=== PATIENT | female | born 1945 | race Caucasian/White ===

== ENCOUNTER → 2020-07-30 10:10 | Outpatient (BNVA) | payer OTHER, MEDICARE, SELFPAY | PROVIDERS: PCP Internal Medicine; Referring Provider Internal Medicine; Visit Provider Student in an Organized Health Care Education/Training Program | DX: Z13.89 Encounter for screening for other disorder (principal) ==

== ENCOUNTER 2020-10-04 09:53 | Outpatient (REF) | payer OTHER, MEDICARE, SELFPAY ==
[2020-10-04 11:27] LABS: Estimated Average Glucose 126 mg/dL
[2020-10-04 11:42] LABS: Alanine Aminotransferase 16 U/L (0-31); Anion Gap 15 (12-20); Aspartate Amino Transferase 17 U/L (5-31); Blood Urea Nitrogen 14 mg/dL (9-16); Calcium 9.8 mg/dL (8.4-10.2); Carbon Dioxide 28 mmol/L (22-29); Chloride 100 mmol/L (96-108); Cholesterol 180 mg/dL; Estimated Glomerular Filt Rate > 60; Glucose Fasting 157 mg/dL (60-99); HDL Cholesterol 51 mg/dL; LDL Cholesterol Calculated 94 mg/dl; Potassium 4.6 mmol/l (3.3-5.1); Sodium 138 mmol/L (135-145); Triglycerides 178 mg/dL
[2020-10-04 11:52] LABS: Free T4 (Free Thyroxine) 1.34 ng/dL (0.71-1.85); Thyroid Stimulating Hormone 0.86 uIU/mL (0.32-4.0)
[2020-10-04 12:02] LABS: Creatinine Urine 236.03 mg/dL; Microalbum/Creatinine Ratio Ur 14.8 ug/mg cr
== END 2020-10-04 09:54 | disposition home or self-care (01) ==
LOC: HO.HMGCLDS 09:53
PROVIDERS: PCP Internal Medicine; Visit Provider Internal Medicine
DX: I10 Essential (primary) hypertension (principal); E11.9 Type 2 diabetes mellitus without complications; E78.5 Hyperlipidemia, unspecified; E03.9 Hypothyroidism, unspecified
CPT/HCPCS: 36415; 80048; 80061; 82043; 83036; 84439; 84443; 84450; 84460

== ENCOUNTER → 2021-03-09 11:33 | Outpatient (BNVA) | payer OTHER, MEDICARE, SELFPAY | PROVIDERS: PCP Internal Medicine; Visit Provider Advanced Practice Midwife ==

== ENCOUNTER 2021-03-14 08:39 | Outpatient (REF) | payer OTHER, MEDICARE, SELFPAY ==
[2021-03-14 11:41] LABS: Estimated Average Glucose 117 mg/dL; Hemoglobin A1c % 5.7 %
[2021-03-14 12:05] LABS: Alanine Aminotransferase 15 U/L (0-31); Anion Gap 12 (12-20); Aspartate Amino Transferase 18 U/L (5-31); Blood Urea Nitrogen 14 mg/dL (9-16); Calcium 9.4 mg/dL (8.4-10.2); Carbon Dioxide 28 mmol/L (22-29); Chloride 102 mmol/L (96-108); Cholesterol 166 mg/dL; Estimated Glomerular Filt Rate > 60; Glucose Fasting 111 mg/dL (60-99); HDL Cholesterol 54 mg/dL; LDL Cholesterol Calculated 85 mg/dl; Potassium 4.1 mmol/L (3.3-5.1); Sodium 138 mmol/L (135-145); Triglycerides 136 mg/dL
[2021-03-14 12:12] LABS: Thyroid Stimulating Hormone 0.85 uIU/mL (0.32-4.0); Vitamin D 25-OH Total 47.9 ng/mL (>30)
== END 2021-03-14 08:40 | disposition home or self-care (01) ==
LOC: HO.HMGCLDS 08:39
PROVIDERS: PCP Internal Medicine; Visit Provider Internal Medicine
DX: E03.9 Hypothyroidism, unspecified (principal); E11.9 Type 2 diabetes mellitus without complications; F33.0 Major depressive disorder, recurrent, mild; I10 Essential (primary) hypertension; I25.10 Atherosclerotic heart disease of native coronary artery without angina pectoris; Z78.0 Asymptomatic menopausal state
CPT/HCPCS: 36415; 80048; 80061; 82306; 83036; 84439; 84443; 84450; 84460

== ENCOUNTER → 2021-05-05 13:26 | Outpatient (BNVA) | payer OTHER, SELFPAY | PROVIDERS: PCP Internal Medicine; Visit Provider Advanced Practice Midwife ==

== ENCOUNTER 2021-05-20 09:31 | Outpatient (REF) | payer OTHER, SELFPAY ==
--- NOTE | ~2021-05-20 | MM_ITS ---
EXAMINATION: MM SCREENING DIGITAL BREAST TOMOSYNTHESIS, BILATERAL CLINICAL INFORMATION: Screening. Asymptomatic. The lifetime risk of breast cancer based on the Tyrer-Cuzick Model is 2%. COMPARISON: Mammography: 03/25/2020, 10/28/2018, 09/24/2017, 07/25/2016 TECHNIQUE: Digital breast tomosynthesis is performed in both the craniocaudal and mediolateral oblique views along with computer-aided detection (CAD). Synthesized 2D images are generated from the tomosynthesis. Additional left CC view is provided. FINDINGS: There are scattered areas of fibroglandular density (ACR BI-RADS breast composition Category b). The left breast is unremarkable. There is no interval mass or architectural abnormality. Neither breast shows abnormal calcifications. The bilateral axilla and skin contours are unremarkable. Right MLO tomography has small oval asymmetric density mid central 3:[address] correlate, likely shifting fibroglandular tissue and/or summation artifact. Patient will be recalled for additional imaging. MM/MM tomosynthesis screening BI IMPRESSION: 1. Right: Small asymmetric density mid breast on MLO view, possibly shifting fibroglandular tissue and/or summation artifact. 2. Left: No mammographic evidence of malignancy. ASSESSMENT: BI-RADS 0: Incomplete - Need Additional Imaging Evaluation RECOMMENDATION: 1. Additional views of the right breast (3-D spot MLO, 3-D ML). 2. Targeted ultrasound if warranted after review of the additional views. 3. Radiology department staff will contact the patient for additional imaging. This patient's information was entered into a reminder system with a target due date for their next mammogram.
== END 2021-05-20 09:32 | disposition home or self-care (01) ==
LOC: HO.MAMMO 09:31
PROVIDERS: PCP Internal Medicine; Visit Provider Internal Medicine
DX: Z12.31 Encounter for screening mammogram for malignant neoplasm of breast (principal)
CPT/HCPCS: 77063; 77067

== ENCOUNTER → 2021-06-06 10:32 | Outpatient (BNVA) | payer OTHER, SELFPAY | PROVIDERS: Visit Provider Nurse Practitioner Family | DX: M54.5 Low back pain (principal); J44.9 Chronic obstructive pulmonary disease, unspecified; G89.29 Other chronic pain | CPT/HCPCS: 99212 ==

== ENCOUNTER 2021-06-07 13:51 | Outpatient (REF) | payer OTHER, SELFPAY ==
--- NOTE | ~2021-06-07 | US_ITS ---
EXAMINATION: US DIAGNOSTIC ULTRASOUND BREAST, RIGHT CLINICAL INFORMATION: Right breast density. COMPARISON: Mammography of same day and dating back to March 01, 2011. TECHNIQUE: Ultrasound of the breast is performed with real-time oswald scale imaging and color Doppler. FINDINGS: Targeted ultrasound evaluation did not demonstrate any abnormal cystic or solid mass. No region of abnormal distal sound shadowing appreciated. Recommend 6 month follow-up right breast mammography. Results are discussed with the patient at time of visit. US/US breast RT limited IMPRESSION: Persistence of right breast density as described with no ultrasound correlate and no suspicious features. Recommend 6 month follow-up right breast mammography. ASSESSMENT: BI-RADS 3: Probably Benign RECOMMENDATION: Diagnostic mammography in 6 months.
--- NOTE | ~2021-06-07 | MM_ITS ---
EXAMINATION: MM DIAGNOSTIC DIGITAL BREAST TOMOSYNTHESIS, RIGHT US TARGETED BREAST, RIGHT CLINICAL INFORMATION: Right breast density superior medial aspect. COMPARISON: Mammography: 05/20/2021 and studies dating back to 03/01/2011. TECHNIQUE: Digital breast tomosynthesis is performed. 2D images are generated from the tomosynthesis. The following views are obtained: 90-degree mediolateral and spot compression mediolateral oblique views. Targeted right breast ultrasound. FINDINGS: There are scattered areas of fibroglandular density (ACR BI-RADS breast composition Category b). Additional views show some persistence of an approximately 5 x 3 mm density but which may be related to turn of vessel or small intramammary lymph node adjacent to a vessel. ULTRASOUND: Targeted ultrasound evaluation did not demonstrate any abnormal cystic or solid mass. No region of abnormal distal sound shadowing appreciated. Recommend 6 month follow up right breast mammography. Results are discussed with the patient at time of visit. MM/MM tomosynthesis added views R IMPRESSION: Persistence of right breast density as described with no ultrasound correlate and no suspicious features. Recommend 6 month follow up right breast mammography. ASSESSMENT: BI-RADS 3: Probably Benign. RECOMMENDATION: Diagnostic mammography in 6 months. This patient's information was entered into a reminder system with a target due date for their next mammogram.
== END 2021-06-07 13:52 | disposition home or self-care (01) ==
LOC: HO.MAMMO 13:51
PROVIDERS: Visit Provider Internal Medicine
DX: N64.89 Other specified disorders of breast (principal)
CPT/HCPCS: 76642; 77061; 77065

== ENCOUNTER → 2021-07-07 14:06 | Outpatient (BNVA) | payer OTHER, SELFPAY | PROVIDERS: PCP Internal Medicine; Visit Provider Obstetrics & Gynecology ==

== ENCOUNTER 2021-08-15 09:34 | Outpatient (REF) | payer OTHER, SELFPAY ==
[2021-08-15 12:07] LABS: Alanine Aminotransferase 18 U/L (0-31); Anion Gap 16 (12-20); Aspartate Amino Transferase 16 U/L (5-31); Blood Urea Nitrogen 13 mg/dL (9-16); Carbon Dioxide 26 mmol/L (22-29); Chloride 104 mmol/L (96-108); Cholesterol 186 mg/dL; Estimated Glomerular Filt Rate > 60; Glucose Fasting 134 mg/dL (60-99); HDL Cholesterol 50 mg/dL; LDL Cholesterol Calculated 107 mg/dl; Potassium 5.3 mmol/L (3.3-5.1); Sodium 141 mmol/L (135-145); Triglycerides 148 mg/dL
[2021-08-15 12:32] LABS: Free T4 (Free Thyroxine) 1.29 ng/dL (0.71-1.85); Thyroid Stimulating Hormone 0.51 uIU/mL (0.32-4.0); Vitamin D 25-OH Total 50.9 ng/mL (>30)
[2021-08-15 12:33] LABS: Creatinine Urine 108.49 mg/dL
[2021-08-15 12:52] LABS: Estimated Average Glucose 128 mg/dL; Hemoglobin A1c % 6.1 %
== END 2021-08-15 09:35 | disposition home or self-care (01) ==
LOC: HO.HMGCLDS 09:34
PROVIDERS: PCP Internal Medicine; Visit Provider Internal Medicine
DX: E03.9 Hypothyroidism, unspecified (principal); E11.9 Type 2 diabetes mellitus without complications; I10 Essential (primary) hypertension; I25.10 Atherosclerotic heart disease of native coronary artery without angina pectoris; Z78.0 Asymptomatic menopausal state
CPT/HCPCS: 36415; 80048; 80061; 82043; 82306; 83036; 84439; 84443; 84450; 84460

== ENCOUNTER 2021-12-07 14:55 | Outpatient (REF) | payer OTHER, SELFPAY ==
--- NOTE | ~2021-12-07 | MM_ITS ---
EXAMINATION: MM DIAGNOSTIC DIGITAL BREAST TOMOSYNTHESIS, RIGHT CLINICAL INFORMATION: Six-month follow up right breast density seen on mediolateral oblique projection only. The lifetime risk of breast cancer based on the Tyrer-Cuzick Model is 1.4%. COMPARISON: Mammography: June 07, 2021 and studies dating back to April 24, 2014 TECHNIQUE: Digital breast tomosynthesis is performed in both the craniocaudal and mediolateral oblique views along with computer-aided detection (CAD). Synthesized 2D images are generated from the tomosynthesis. FINDINGS: There are scattered areas of fibroglandular density (ACR BI-RADS breast composition Category b). There are no significant masses, abnormal calcifications, or other abnormalities. The previously noted density is not identified on today's study. Results are provided to the patient at time of visit by the technologist. MM/MM tomosynthesis diagnostic RT IMPRESSION: No mammographic evidence of malignancy. ASSESSMENT: BI-RADS 1: Negative RECOMMENDATION: Routine annual mammography screening, due in 6 months. This patient's information was entered into a reminder system with a target due date for their next mammogram.
== END 2021-12-07 14:56 | disposition home or self-care (01) ==
LOC: HO.MAMMO 14:55
PROVIDERS: PCP Internal Medicine; Visit Provider Internal Medicine
DX: R92.2 Inconclusive mammogram (principal)
CPT/HCPCS: 77061; 77065

== ENCOUNTER 2021-12-12 08:37 | Outpatient (REF) | payer OTHER, SELFPAY ==
[2021-12-12 11:59] LABS: Estimated Average Glucose 120 mg/dL; Hemoglobin A1c % 5.8 %
[2021-12-12 12:03] LABS: Alanine Aminotransferase 16 U/L (0-31); Anion Gap 13 (12-20); Aspartate Amino Transferase 16 U/L (5-31); Blood Urea Nitrogen 15 mg/dL (9-16); Calcium 10.3 mg/dL (8.4-10.2); Carbon Dioxide 29 mmol/L (22-29); Chloride 101 mmol/L (96-108); Cholesterol 163 mg/dL; Estimated Glomerular Filt Rate > 60; Glucose Fasting 131 mg/dL (60-99); HDL Cholesterol 48 mg/dL; LDL Cholesterol Calculated 85 mg/dl; Potassium 3.9 mmol/L (3.3-5.1); Sodium 139 mmol/L (135-145); Triglycerides 154 mg/dL
[2021-12-12 12:26] LABS: Free T4 (Free Thyroxine) 1.34 ng/dL (0.71-1.85); Thyroid Stimulating Hormone 0.31 uIU/mL (0.32-4.0); Vitamin D 25-OH Total 64.7 ng/mL (>30)
== END 2021-12-12 08:38 | disposition home or self-care (01) ==
LOC: HO.HMGCLDS 08:37
PROVIDERS: Visit Provider Internal Medicine
DX: I25.2 Old myocardial infarction (principal); I25.10 Atherosclerotic heart disease of native coronary artery without angina pectoris; I10 Essential (primary) hypertension; E11.9 Type 2 diabetes mellitus without complications; E03.9 Hypothyroidism, unspecified
CPT/HCPCS: 36415; 80048; 80061; 82306; 83036; 84439; 84443; 84450; 84460

== ENCOUNTER → 2021-12-26 13:56 | Outpatient (BNVA) | payer OTHER, MEDICARE, SELFPAY | PROVIDERS: PCP Internal Medicine; Referring Provider Internal Medicine; Visit Provider Internal Medicine | DX: I25.10 Atherosclerotic heart disease of native coronary artery without angina pectoris (principal); I10 Essential (primary) hypertension; E78.5 Hyperlipidemia, unspecified | CPT/HCPCS: 93005; 99202 ==

== ENCOUNTER 2022-01-09 10:16 | Outpatient (REF) | payer OTHER, SELFPAY ==
[2022-01-09 10:57] LABS: COVID-19 Test Positive (Negative)
== END 2022-01-09 10:17 | disposition home or self-care (01) ==
LOC: HO.LAB 10:16
PROVIDERS: PCP Internal Medicine; Visit Provider Internal Medicine
DX: Z20.822 Contact with and (suspected) exposure to COVID-19 (principal)
CPT/HCPCS: 87635; C9803

== ENCOUNTER → 2022-05-11 13:14 | Outpatient (BNVA) | payer OTHER, SELFPAY | PROVIDERS: PCP Internal Medicine; Visit Provider Nurse Practitioner Family | DX: G89.29 Other chronic pain (principal); M54.50 Low back pain, unspecified; M47.27 Other spondylosis with radiculopathy, lumbosacral region; J44.9 Chronic obstructive pulmonary disease, unspecified | CPT/HCPCS: 99212 ==

== ENCOUNTER 2022-06-06 10:54 | Outpatient (REF) | payer OTHER, SELFPAY ==
--- NOTE | ~2022-06-06 | MM_ITS ---
EXAMINATION: MM SCREENING DIGITAL BREAST TOMOSYNTHESIS, BILATERAL CLINICAL INFORMATION: Screening. Asymptomatic. The lifetime risk of breast cancer based on the Tyrer-Cuzick Model is under 2%. COMPARISON: Mammography: 12/07/2021, 06/07/2021, 05/20/2021, 03/25/2020 TECHNIQUE: Digital breast tomosynthesis is performed in both the craniocaudal and mediolateral oblique views along with computer-aided detection (CAD). Synthesized 2D images are generated from the tomosynthesis. FINDINGS: There are scattered areas of fibroglandular density (ACR BI-RADS breast composition Category b). There are no significant masses, abnormal calcifications, or other abnormalities. Parenchymal pattern is similar to prior studies. There is no developing density or architectural abnormality. The axilla and skin contours are unremarkable. No significant changes. MM/MM tomosynthesis screening BI IMPRESSION: No mammographic evidence of malignancy. ASSESSMENT: BI-RADS 1: Negative RECOMMENDATION: Routine annual mammography screening. This patient's information was entered into a reminder system with a target due date for their next mammogram.
== END 2022-06-06 10:55 | disposition home or self-care (01) ==
LOC: HO.MAMMO 10:54
PROVIDERS: PCP Internal Medicine; Visit Provider Internal Medicine
DX: Z12.31 Encounter for screening mammogram for malignant neoplasm of breast (principal)
CPT/HCPCS: 77063; 77067

== ENCOUNTER 2022-09-22 09:18 | Outpatient (REF) | payer OTHER, SELFPAY ==
[2022-09-22 11:40] LABS: Amphetamine Screen Urine Not Detected (Not Detect); Barbiturates, Urine Not Detected (Not Detect); Benzodiazepines Screen Urine Not Detected (Not Detect); Cannabinoid Screen Urine POSITIVE (Not Detect); Cocaine Screen Urine Not Detected (Not Detect); Fentanyl, urine Not Detected (Not Detect); Opiate Screen Urine Not Detected (Not Detect); Phencyclidine Screen Urine Not Detected (Not Detect)
[2022-09-22 11:56] LABS: Alanine Aminotransferase 16 U/L (0-31); Albumin Level 4.5 g/dL (3.5-5.0); Alkaline Phosphatase 93 U/L (39-117); Anion Gap 17 (12-20); Aspartate Amino Transferase 17 U/L (5-31); Bilirubin Total 0.5 mg/dL (0.0-1.0); Blood Urea Nitrogen 20 mg/dL (9-16); Calcium 10.5 mg/dL (8.4-10.2); Carbon Dioxide 27 mmol/L (22-29); Chloride 102 mmol/L (96-108); Cholesterol 193 mg/dL; Estimated Glomerular Filt Rate > 60; Glucose Fasting 150 mg/dL (60-99); Glucose Random 149 mg/dL (60-115); HDL Cholesterol 53 mg/dL; LDL Cholesterol Calculated 105 mg/dl; Potassium 4.8 mmol/L (3.3-5.1); Sodium 141 mmol/L (135-145); Total Protein 7.5 g/dL (6.5-8.0); Triglycerides 178 mg/dL
[2022-09-22 12:02] LABS: Estimated Average Glucose 123 mg/dL; Hemoglobin A1c % 5.9 %
[2022-09-22 12:07] LABS: Thyroid Stimulating Hormone 0.14 uIU/mL (0.32-4.0); Vitamin D 25-OH Total 47.1 ng/mL (>30)
[2022-10-02 09:29] LABS: Tramadol, Ur 5357
[2022-10-02 09:30] LABS: Desmethyltramadol, Ur >10000
== END 2022-09-22 09:19 | disposition home or self-care (01) ==
LOC: HO.HMGCLDS 09:18
PROVIDERS: Absent Provider Nurse Practitioner Family; PCP Internal Medicine; Visit Provider Internal Medicine
DX: E11.9 Type 2 diabetes mellitus without complications (principal); I10 Essential (primary) hypertension; I25.10 Atherosclerotic heart disease of native coronary artery without angina pectoris; I25.2 Old myocardial infarction; E03.9 Hypothyroidism, unspecified; Z79.899 Other long term (current) drug therapy
CPT/HCPCS: 36415; 80048; 80053; 80061; 80307; 80373; 82306; 83036; 84439; 84443

== ENCOUNTER 2022-10-10 11:39 | Outpatient (REF) | payer OTHER, SELFPAY ==
[2022-10-11 11:37] LABS: Calcium (PTHI) 10.4 mg/dL (8.6-10.4); PTHI 34 pg/mL (16-77)
[2022-10-11 15:58] LABS: Calcium, Ionized 5.4 mg/dL (4.8-5.6)
== END 2022-10-10 11:40 | disposition home or self-care (01) ==
LOC: HO.HMGCLDS 11:39
PROVIDERS: PCP Internal Medicine; Visit Provider Nurse Practitioner Family
DX: E83.52 Hypercalcemia (principal)
CPT/HCPCS: 36415; 82330; 83970

== ENCOUNTER → 2023-01-09 12:55 | Outpatient (BNVA) | payer OTHER, SELFPAY | PROVIDERS: PCP Internal Medicine; Visit Provider Nurse Practitioner Family | DX: M47.27 Other spondylosis with radiculopathy, lumbosacral region (principal) | CPT/HCPCS: 99212 ==

== ENCOUNTER 2023-01-17 08:41 | Outpatient (REF) | payer OTHER, SELFPAY ==
[2023-01-17 12:06] LABS: Alanine Aminotransferase 12 U/L (0-31); Aspartate Amino Transferase 15 U/L (5-31)
== END 2023-01-17 08:42 | disposition home or self-care (01) ==
LOC: HO.HMGCLDS 08:41
PROVIDERS: PCP Internal Medicine; Visit Provider Internal Medicine
DX: E03.9 Hypothyroidism, unspecified (principal); I10 Essential (primary) hypertension; I25.10 Atherosclerotic heart disease of native coronary artery without angina pectoris; I25.2 Old myocardial infarction; E11.9 Type 2 diabetes mellitus without complications
CPT/HCPCS: 36415; 84450; 84460

== ENCOUNTER 2023-03-02 08:41 | Outpatient (REF) | payer OTHER, SELFPAY ==
[2023-03-02 11:44] LABS: Estimated Average Glucose 117 mg/dL; Hemoglobin A1c % 5.7 %
[2023-03-02 11:56] LABS: Anion Gap 16 (12-20); Blood Urea Nitrogen 15 mg/dL (9-16); Calcium 9.9 mg/dL (8.4-10.2); Carbon Dioxide 23 mmol/L (22-29); Chloride 105 mmol/L (96-108); Cholesterol 172 mg/dL; Estimated Glomerular Filt Rate > 60; Glucose Fasting 135 mg/dL (60-99); HDL Cholesterol 50 mg/dL; LDL Cholesterol Calculated 95 mg/dl; Potassium 3.6 mmol/L (3.3-5.1); Sodium 140 mmol/L (135-145); Triglycerides 138 mg/dL
[2023-03-02 12:12] LABS: Free T4 (Free Thyroxine) 1.35 ng/dL (0.71-1.85); Thyroid Stimulating Hormone 0.07 uIU/mL (0.32-4.0)
== END 2023-03-02 08:42 | disposition home or self-care (01) ==
LOC: HO.HMGCLDS 08:41
PROVIDERS: PCP Internal Medicine; Visit Provider Internal Medicine
DX: Z00.01 Encounter for general adult medical examination with abnormal findings (principal); I25.10 Atherosclerotic heart disease of native coronary artery without angina pectoris; I10 Essential (primary) hypertension; E03.9 Hypothyroidism, unspecified; E11.9 Type 2 diabetes mellitus without complications; E78.5 Hyperlipidemia, unspecified
CPT/HCPCS: 36415; 80048; 80061; 82306; 83036; 84439; 84443

== ENCOUNTER 2023-06-07 11:08 | Outpatient (REF) | payer OTHER, SELFPAY | END 2023-06-07 11:09 | disposition home or self-care (01) | LOC: HO.MAMMO 11:08 | PROVIDERS: PCP Internal Medicine; Visit Provider Internal Medicine | DX: Z12.31 Encounter for screening mammogram for malignant neoplasm of breast (principal) | CPT/HCPCS: 77063; 77067 ==

== ENCOUNTER → 2023-06-07 11:15 | Outpatient (BNV) | payer OTHER, SELFPAY | PROVIDERS: PCP Internal Medicine; Visit Provider Radiology Diagnostic Radiology | DX: Z12.31 Encounter for screening mammogram for malignant neoplasm of breast (principal) | CPT/HCPCS: 77063; 77067 ==

== ENCOUNTER 2023-07-09 09:45 | Outpatient (AMB) | payer OTHER, SELFPAY ==
--- NOTE | 2023-07-09 09:55 | MHC.OFFVIS ---
Intake Vital Signs 07/09/23 09:56 Height 5 ft 5 in Weight 163 lb 2.273 oz BMI 27.1 BP 148/84 H Blood Pressure Location Lt brachial Position Sitting Pulse 57 Pulse Source Pulse Oximeter Temp 97.4 F Temp Source Skin Pulse Oximetry (%) 95 Oxygen Delivery Method Room Air Intake Visit Reasons: osteoarthritis Intake Note: Patient presents today for OA follow up. Clerical Adviser Required: No Accompanied by: Self / Same As Patient Allergies amoxicillin [Augmentin] Adverse Reaction (Unknown, Verified 07/09/23 09:56) N/V HPI HPI Comments History of Present Illness Details The patient returns today for monitoring her tramadol use for her lumbar osteoarthritis. She has the 50 mg tablets prescribed and takes 2 twice a day. She denies any dizziness or sedation during the daytime. She does take tincture of THC at nighttime for sleep. She says the THC helps her sleep but does not cause her significant daytime sedation. The pain in the back sometimes radiates to the right leg but not regularly anymore. FOR[facility]LY [facility], [facility] Medical History (Updated 02/22/23 @ 12:18 by Dany Leonard MD) Insomnia Hx of myocardial infarction Myocardial infarct Major depression in full remission Type 2 diabetes mellitus without complication, without long-term current use of insulin Essential hypertension Acquired hypothyroidism CAD (coronary artery disease) COPD (chronic obstructive pulmonary disease) Surgical History Hx of colonoscopy History of heart artery stent History of total hysterectomy Family History Father Parkinson disease Scoliosis Cancer Mother Colon cancer Maternal Grandmother No problems noted. Maternal Grandfather No problems noted. Paternal Grandmother Lung cancer Paternal Grandfather Alcoholism Diabetes mellitus Social History (Updated 07/09/23 @ 10:04 by LYDIA Caruso) Housing: House Alcohol intake: current Alcohol intake frequency: a few times a week Patient Tobacco Use Status: Current everyday Tobacco user Tobacco use type: Cigarette and Smokeless Tobacco Years Smoked: 14 e-Cigarette/Vaping Use: Currently Using Current occupational status: retired Cognitive needs: No Hearing needs: No Vision needs: Yes Review of Systems Const Details: Negative for appetite change, weight change, fever, chills, malaise and fatigue Eyes Details: Negative for vision change, dry eyes,headaches and dizziness Neuro Details: Negative for epilepsy, palsy, stroke, changes in speech, tingling and weakness Endo Details: Negative for polyuria and polydypsia Hunter/Lymph Details: Negative for excessive bruising or bleeding. Physical Exam Vital Signs: Last Vital Signs Temp 97.4 F 07/09/23 09:56 Pulse 57 07/09/23 09:56 BP 148/84 H 07/09/23 09:56 Pulse Ox 95 07/09/23 09:56 Oxygen Delivery Method Room Air 07/09/23 09:56 BMI result Body Mass Index 27.1 APPEARANCE: Patient in no acute distress EYES no redness, pupils equal and reactive to light, eyelids normal EXTREMITIES: No edema, no calf tenderness, normal peripheral pulses. JOINT EXAM:.?? Cervical Spine: She has some limitation in lateral rotation to about 30 degrees and lateral flexion to about 10 degrees. This motion is not painful. There is no tenderness. Thoracic Spine:?? No tenderness on palpation. Lumbar Spine: Alignment normal.? Some limitation of flexion with mild pain at 75 degrees. No tenderness. Hands: There is mild bony enlargement and tenderness at the base of the thumb bilaterally, more prominent on the right. Is also nontender bony enlargement at the thumb IP in the PIP joints bilaterally. These are not tender. There is no soft tissue swelling, redness or warmth. Wrists:? Normal pain-free range of motion without tenderness, swelling, increased warmth or erythema. Elbows: Normal pain-free range of motion without tenderness, swelling, increased warmth or erythema. Shoulders:? Full range of motion without pain. No tenderness, weakness, swelling, increased warmth or erythema. Hips:? Full range of motion without pain. Hip bursa: No tenderness. Knees:?? Normal pain-free range of motion with mild patellofemoral crepitus but no effusion, tenderness, swelling, increased warmth or erythema.? There is no effusion or crepitation Ankles: Normal pain-free range of motion without tenderness, swelling, increased warmth or erythema. Feet: Normal pain-free range of motion without tenderness, swelling, increased warmth or erythema. Cock-up deformity consistent with hammer toe in 2nd and 3rd toe bilaterally. No erythema, swelling or warmth noted. ? Assessment & Plan Assessment & Plan (1) Medication monitoring encounter: Comment: tramadol pain contract signed 05/11/2022 Code(s): Z51.81 - Encounter for therapeutic drug level monitoring (2) Lumbosacral spondylosis with radiculopathy: Code(s): M47.27 - Other spondylosis with radiculopathy, lumbosacral region Plan She believes her symptoms are improved with the use of the tramadol. I do not detect any untoward side effects. I did warn her that the tramadol could be sedating and might lead to some lightheadedness or dizziness as well. I suggested she try to take the 1 Tylenol with the 1 tramadol in the mornings to see if that would effects similar pain relief without run the risk of causing FLARE STITCHER side effects. I warned her that not much is known about THC-tramadol interactions but they are both sedating drugs. She seems to be tolerating the nighttime tramadol. The Mass Pat is reviewed and she seems to be complying with the prescription guidance. Her TSH is a bit low suggesting over treatment of her hypothyroidism. She was told to discuss that with her primary doctor. And Follow-up in 6 months is recommended. Coding Level of Care Code Est Pt Level 3 (61026) Diagnoses Medication monitoring encounter Z51.81 Lumbosacral spondylosis with radiculopathy M47.27
[2023-07-09 09:56] VITALS: BP 148/84; PULSE 57; TEMP 36.3; O2SAT 95; BMI 27.1
== END 2023-07-09 10:32 | disposition home or self-care (01) ==
LOC: HO.RHE 09:45
PROVIDERS: PCP Internal Medicine; Visit Provider Internal Medicine Rheumatology
DX: Z51.81 Encounter for therapeutic drug level monitoring (principal); M47.27 Other spondylosis with radiculopathy, lumbosacral region
CPT/HCPCS: 99213

== ENCOUNTER → 2023-07-09 09:45 | Outpatient (BNVA) | payer OTHER, SELFPAY | PROVIDERS: PCP Internal Medicine; Visit Provider Internal Medicine Rheumatology | DX: Z51.81 Encounter for therapeutic drug level monitoring (principal); F11.20 Opioid dependence, uncomplicated; M47.27 Other spondylosis with radiculopathy, lumbosacral region | CPT/HCPCS: 99212 ==

== ENCOUNTER 2023-07-11 07:32 | Outpatient (REF) | payer OTHER, SELFPAY ==
[2023-07-11 11:41] LABS: Estimated Average Glucose 120 mg/dL; Hemoglobin A1c % 5.8 % (<6.0)
[2023-07-11 12:39] LABS: Alanine Aminotransferase 16 U/L (0-31); Anion Gap 14 (12-20); Aspartate Amino Transferase 19 U/L (5-31); Blood Urea Nitrogen 15 mg/dL (9-16); Calcium 10.1 mg/dL (8.4-10.2); Carbon Dioxide 24 mmol/L (22-29); Chloride 104 mmol/L (96-108); Cholesterol 183 mg/dL (<200); Estimated Glomerular Filt Rate > 60; Glucose Fasting 133 mg/dL (60-99); HDL Cholesterol 57 mg/dL (>40); LDL Cholesterol Calculated 95 mg/dL (<100); Potassium 3.7 mmol/L (3.3-5.1); Sodium 138 mmol/L (135-145); Triglycerides 156 mg/dL (<150)
[2023-07-11 12:59] LABS: Thyroid Stimulating Hormone 0.14 uIU/mL (0.32-4.0)
== END 2023-07-11 07:33 | disposition home or self-care (01) ==
LOC: HO.HMGCLDS 07:32
PROVIDERS: PCP Internal Medicine; Visit Provider Internal Medicine
DX: E11.9 Type 2 diabetes mellitus without complications (principal); I10 Essential (primary) hypertension; E03.9 Hypothyroidism, unspecified; I25.10 Atherosclerotic heart disease of native coronary artery without angina pectoris; I25.2 Old myocardial infarction
CPT/HCPCS: 36415; 80048; 80061; 83036; 84443; 84450; 84460

== ENCOUNTER 2023-07-12 10:40 | Outpatient (AMB) | payer OTHER, SELFPAY ==
--- NOTE | 2023-07-12 11:09 | MHC.PC.OV ---
Vital Signs 07/12/23 11:10 Height 5 ft 5 in Weight 163 lb 8 oz BMI 27.2 BP 140/78 H Blood Pressure Location Rt brachial Position Sitting Pulse 73 Pulse Source Pulse Oximeter Pulse Oximetry (%) 95 Oxygen Delivery Method Room Air Intake Visit Reasons: follow up Intake Note: pt is here to follow up for her lab results pt would like to get the under 65 flu vaccine Allergies amoxicillin [Augmentin] Adverse Reaction (Unknown, Verified 02/28/24 11:10) N/V high dose influenza Adverse Reaction (Uncoded 01/01/24 10:09) Hives Medication List - Last Reconciled 07/12/23 by Loretta Sanchez MD albuterol sulfate 2.5 mg (3 mL) inhalation Q4-6H PRN albuterol sulfate 90 mcg/actuation (ProAir HFA) 0 mcg inhalation aspirin 81 mg PO DAILY atorvastatin 10 mg PO DAILY [id number] mg tabs PO cholecalciferol (vitamin D3) 25 mcg PO DAILY citalopram 40 mg PO DAILY docusate sodium 100 mg PO DAILY hydrochlorothiazide 25 mg PO DAILY levothyroxine 137 mcg PO DAILY lisinopril 20 mg PO DAILY multivitamin 1 tab PO DAILY omeprazole 20 mg PO DAILY tramadol 100 mg (2 x 50 mg) PO BID PRN Tobacco use date assessed: 01/18/23 Fall risk assessment: No Falls in past year Last assessed Fall Risk: 07/12/23 Dental Screening Dental Screen Date: 07/12/23 Did you have a dental visit in the last 12 months?: No Did you have a dental problem in the last 6 months where you did not have access to dental care?: No Was dental information given to patient?: Patient has dentist HPI follow up HPI Details 78 year old lady with diabetes mellitus currently controlled through diet and exercise, hypertension, acquired hypothyroidism, here today for follow-up. Has been taking her medications as directed, and compliant with diet. Latest labs showed hemoglobin A1c at 5.8%, with lipids within normal limits as well as her electrolytes and renal function. Still having it problems initiating and staying asleep, took eszopiclone in the past which gave her severe abdominal pain. COUNT INCLUDES THE [facility] Medical History Trochanteric bursitis, right hip Chronic insomnia Hx of myocardial infarction Myocardial infarct Major depression in full remission Type 2 diabetes mellitus without complication, without long-term current use of insulin Essential hypertension Acquired hypothyroidism CAD (coronary artery disease) COPD (chronic obstructive pulmonary disease) Surgical History Hx of colonoscopy History of heart artery stent History of total hysterectomy Family History Father Parkinson disease Scoliosis Cancer Mother Colon cancer Maternal Grandmother No problems noted. Maternal Grandfather No problems noted. Paternal Grandmother Lung cancer Paternal Grandfather Alcoholism Diabetes mellitus Social History Housing: House Alcohol intake: current Alcohol intake frequency: a few times a week Patient Tobacco Use Status: Former Tobacco user Tobacco use type: Smokeless Tobacco Years Smoked: 14 e-Cigarette/Vaping Use: Currently Using service: No Current occupational status: retired Cognitive needs: No Hearing needs: No Vision needs: Yes Questionnaire Thrive Questionnaire Date Thrive assessed: 01/18/23 NADIA-7 AMB Questionnaire NADIA-7 Date NADIA - 7 assessed: 01/18/23 Source: Developed by Drs. Otf Mandujano, Soraya Caba, Sim Villa and colleagues, with an educational kenan from [employer]. Review of Systems Const Denies fatigue, Denies fever(s), Denies frequent falls and Denies weakness Eyes Reports no additional complaints ENT Denies dizziness Card Denies chest pain, Denies lightheadedness, Denies palpitations and Denies dyspnea Resp Denies cough and Denies dyspnea GI Denies change in bowel habits Reports no additional complaints Musc Denies abnormal gait and Denies muscle weakness Neuro Denies abnormal gait, Denies dizziness, Denies frequent falls and Denies weakness Endo Denies fatigue and Denies palpitations Hunter/Lymph Reports no additional complaints Physical exam (Primary Care) Vital Signs: Last Vital Signs Pulse 73 07/12/23 11:10 BP 140/78 H 07/12/23 11:10 Pulse Ox 95 07/12/23 11:10 Oxygen Delivery Method Room Air 07/12/23 11:10 BMI result Body Mass Index 27.2 Tobacco/Smoking Status: Tobacco use Status Tobacco use date assessed 01/18/23 07/12/23 11:09 Patient Tobacco Use Status Current everyday Tobacco 07/12/23 11:09 Tobacco use type Cigarette,Smokeless Tobacco 07/12/23 11:09 e-Cigarette/Vaping Use Currently Using 07/12/23 11:09 Thrive Assessment: Date of Thrive Assessment Date Thrive assessed 01/18/23 07/12/23 11:09 Const Other: Alert oriented x3 no acute distress noted ambulatory with normal gait Orientation/consciousness: patient oriented x3 HENMT Head: Yes normocephalic Ears: external ears normal, TM's normal bilaterally and EAC's normal General nose exam: Normal external nose present and No nasal discharge present Face and sinus: Yes face symmetric Mouth: Normal oral and palatal mucosa present, oropharynx normal and moist mucous membranes Teeth and gingiva: dentures Eyes General: appearance normal, both eyes and all related structures Neck Neck: Yes full ROM, Yes no lymphadenopathy and Yes supple Chest Breast/axilla palpation: normal palpation of the breasts Resp Auscultation: clear to auscultation bilaterally Cardio Other: S1-S2 present regular rate and rhythm GI Other: Normal bowel sounds, soft, nontender, with no mass palpated General: Yes no CVA tenderness Back/Spine/Pelvis Back: no CVA tenderness Skin General skin exam: no rashes or lesions noted Neuro General: patient oriented x3, gait normal, tone normal, moves all extremities, Normal light touch and pain sensation and no focal motor deficits Extrem General: Yes full ROM and Yes no joint enlargement Psych Appearance: grossly normal and well kempt Mental Status: mental status grossly normal Speech and movement: Normal speech and movement present Affect: normal affect Attitude: cooperative Thought process: Normal thought process present Office Procedures Flu Questionnaire Does the patient have a severe egg allergy?: No Does the patient have severe life threatening allergies?: No Does the patient have a fever or illness today?: No Has the patient ever had any past reaction to a flu shot?: No Comment: pt got very sick from high dose Flu vaccine Immunizations flu vacc [id number] 6mos up(PF) 60 mcg(15 mcgx4)/0.5 mL IM syringe Performing Provider: Loretta Sanchez MD Performing Location: [facility] Administered by: Berna Lucia CMA on 07/12/23 11:55 Dose Route Admin Location Dispensed Lot Number Expiration Date NDC [employer] 0.5 mL IM Left Deltoid 0.5 mL [id number] 03/16/24 [id number] [employer] VIS Given Date VIS Provided VIS Publication Date 07/12/23 Single Vaccine 21 Eligibility Eligibility Date Funding Source Not VFC Eligible 07/12/23 Private Results Reviewed Results Reviewed: Name: Estrella De La Torre Age/Sex: 78/F : 1945 Unit#: [id number] Attend Dr: Loretta Sanchez MD Re07/11/23 Status: DEP [facility]: SPEC : [id number] YASH: 07/11/23 STATUS: COMP REQ : [id number] RECD: 07/11/[address]: Loretta Sanchez MD COMP: 07/11/239 ENTERED: 07/11/[address]: ORDERED: Met Prof Fast, AST, ALT, Lipid Panel, TSH Test Result Flag Reference Site Sodium 138 135-145 mmol/L Potassium 3.7 3.3-5.1 mmol/L CL 104 96-108 mmol/L CO2 24 22-29 mmol/L Gap 14 12-20 BUN 15 9-16 mg/dL Creat 0.79 0.5-1.4 mg/dL EGFR > 60 NOTE: For -Mex[place] individuals, multiply the result by 1.210. Chronic Kidney Disease: Estimated GFR < 60 mL/min/1.73m2 Severe Kidney Disease: Estimated GFR < 15 mL/min/1.73m2 FBS 133 H 60-99 mg/dL A fasting glucose of 126 mg/dl or greater on more than one occasion is considered diagnostic of diabetes. CA 10.1 8.4-10.2 mg/dL AST (GOT) 19 5-31 U/L ALT (GPT) 16 0-31 U/L Triglyceride 156 H <150 mg/dL Desirable Triglyceride: less than 150 mg/dL Borderline High Triglyceride 150-199 mg/dL High Triglyceride: 200-499 mg/dL Very High Triglyceride: greater than or equal to 5OO mg/dL Cholesterol 183 <200 mg/dL Desirable Cholesterol: less than 200 mg/dL Borderline High Cholesterol: 200-239 mg/dL High Cholesterol: greater than 239 mg/dL LDL Calculated 95 <100 mg/dL Desirable LDL: less than 100 mg/dL Near Optimal/Above Optimal LDL: 110-129 mg/dL Borderline High LDL: 130-159 mg/dL High LDL: 160-189 mg/dL Very High LDL: greater than or equal to 190 mg/dL HDL 57 >40 mg/dL Desirable HDL: greater than 40 mg/dL Note: This HDL assay may give artificially low results in patients with liver disease. TSH 3rd Gen. 0.14 L 0.32-4.0 uIU/mL TSH 3rd Generation ([facility]) Laboratory Tests 07/11/23 07:37 Estimat Average Glucose 120 Hemoglobin A1c % 5.8 Assessment and Plan Assessment & Plan (1) Type 2 diabetes mellitus without complication, without long-term current use of insulin: Code(s): E11.9 - Type 2 diabetes mellitus without complications Plan: Diabetes mellitus well controlled with through diet and exercise. With hemoglobin A1c at 5.8% . Reminded to get updated diabetes retinopathy screening (2) Essential hypertension: Code(s): I10 - Essential (primary) hypertension Plan: Blood pressure not at goal of less than 130/80. Will continue on lisinopril 20 mg daily and hydrochlorothiazide 25 mg daily in a.m. Reinforced importance of following a low sodium diet, getting regular exercise, and lowering stress levels. (3) Acquired hypothyroidism: Code(s): E03.9 - Hypothyroidism, unspecified Plan: Thyroid levels are within normal limits, continued on current dose of levothyroxine at 137 mcg daily in a.m. an hour before breakfast. (4) Chronic insomnia: Code(s): F51.04 - Psychophysiologic insomnia Plan: Unable to tolerate eszopiclone, will try on trazodone 50 mg per tablet to take 1 tablet at bedtime as needed for insomnia Orders: Orders Influenza [id number] Immunization 07/12/23 Z23 - Encounter for immunization Medications: New trazodone 50 mg PO BEDTIME PRN 30 tabs 0RF sleep Coding Level of Care Code Est Pt Level 4 (90400) Complex EM visit Add On G2211 Diagnoses Type 2 diabetes mellitus without complication, without long-term current use of insulin E11.9 Essential hypertension I10 Acquired hypothyroidism E03.9 Chronic insomnia F51.04
[2023-07-12 11:10] VITALS: BP 140/78; PULSE 73; O2SAT 95; BMI 27.2
== END 2023-07-12 12:52 | disposition home or self-care (01) ==
PROVIDERS: Visit Provider Internal Medicine
DX: E11.9 Type 2 diabetes mellitus without complications (principal); I10 Essential (primary) hypertension; E03.9 Hypothyroidism, unspecified; F51.04 Psychophysiologic insomnia
CPT/HCPCS: 99499

== ENCOUNTER 2023-08-03 14:31 | Outpatient (AMB) | payer OTHER, SELFPAY ==
--- NOTE | 2023-08-03 14:28 | A.OFFPC_ITS ---
Intake Visit Reasons: discuss insomnia med [facility] [phone] Intake Note: pt wants to discuss insomnia med Allergies amoxicillin [Augmentin] Adverse Reaction (Unknown, Verified 08/03/23 14:37) N/V high dose influenza Adverse Reaction (Uncoded 08/03/23 14:37) Hives Medication List - Last Reconciled 08/03/23 by Loretta Sanchez MD albuterol sulfate 2.5 mg (3 mL) inhalation Q4-6H PRN albuterol sulfate 90 mcg/actuation (ProAir HFA) 0 mcg inhalation aspirin 81 mg PO DAILY atorvastatin 10 mg PO DAILY [id number] mg tabs PO cholecalciferol (vitamin D3) 25 mcg PO DAILY citalopram 40 mg PO DAILY docusate sodium 100 mg PO DAILY hydrochlorothiazide 25 mg PO DAILY levothyroxine 137 mcg PO DAILY lisinopril 20 mg PO DAILY multivitamin 1 tab PO DAILY omeprazole 20 mg PO DAILY tramadol 100 mg (2 x 50 mg) PO BID PRN trazodone 50 mg PO BEDTIME PRN Tobacco use date assessed: 01/18/23 Fall risk assessment: No Falls in past year Last assessed Fall Risk: 08/03/23 Dental Screening Dental Screen Date: 08/03/23 Did you have a dental visit in the last 12 months?: Yes Did you have a dental problem in the last 6 months where you did not have access to dental care?: No Was dental information given to patient?: Patient has dentist HPI discuss insomnia med [facility] [phone] HPI Details Tele health visit made with 78-year-old lady, here today complaining of insomnia. She has tried taking [id number]-[id number] sleep aids which has not been effective. She was then prescribed trazodone 50 mg per tablet, which initially helped, but now needs to take at least 1 and half tablets or 75 mg at night to help her sleep through the night. Denies any adverse effects with taking 75 mg dose of trazodone. [facility] Medical History (Updated 08/05/23 @ 22:57 by Loretta Sanchez MD) Chronic insomnia Hx of myocardial infarction Myocardial infarct Major depression in full remission Type 2 diabetes mellitus without complication, without long-term current use of insulin Essential hypertension Acquired hypothyroidism CAD (coronary artery disease) COPD (chronic obstructive pulmonary disease) Surgical History Hx of colonoscopy History of heart artery stent History of total hysterectomy Family History Father Parkinson disease Scoliosis Cancer Mother Colon cancer Maternal Grandmother No problems noted. Maternal Grandfather No problems noted. Paternal Grandmother Lung cancer Paternal Grandfather Alcoholism Diabetes mellitus Social History Housing: House Alcohol intake: current Alcohol intake frequency: a few times a week Patient Tobacco Use Status: Current everyday Tobacco user Tobacco use type: Cigarette and Smokeless Tobacco Years Smoked: 14 e-Cigarette/Vaping Use: Currently Using Current occupational status: retired Cognitive needs: No Hearing needs: No Vision needs: Yes Questionnaire Thrive Questionnaire Date Thrive assessed: 01/18/23 NADIA-7 AMB Questionnaire NADIA-7 Date NADIA - 7 assessed: 01/18/23 Source: Developed by Drs. Otf Mandujano, Soraya Caba, Sim Villa and colleagues, with an educational kenan from [employer]. Review of Systems Const Denies fatigue, Denies fever(s), Denies frequent falls and Denies weakness ENT Denies dizziness Card Denies chest pain, Denies lightheadedness, Denies palpitations and Denies dyspnea Resp Denies cough and Denies dyspnea GI Denies change in bowel habits Musc Denies abnormal gait and Denies muscle weakness Neuro Denies abnormal gait, Denies dizziness, Denies frequent falls and Denies weakness Endo Denies fatigue and Denies palpitations Hunter/Lymph Reports no additional complaints Physical exam (Primary Care) Tobacco/Smoking Status: Tobacco use Status Tobacco use date assessed 01/18/23 08/03/23 14:31 Patient Tobacco Use Status Current everyday Tobacco 08/03/23 14:31 Tobacco use type Cigarette,Smokeless Tobacco 08/03/23 14:31 e-Cigarette/Vaping Use Currently Using 08/03/23 14:31 Thrive Assessment: Date of Thrive Assessment Date Thrive assessed 01/18/23 08/03/23 14:31 Telehealth Telehealth Location of provider rendering services: practice address Location of patient: address on file Patient Identification confirmed using: Name, : Yes Telehealth method: video Patient verbally consented to treatment: Yes Patient verbally consented to billing insurance company: Yes Patient informed of any privacy concerns related to visit: Yes Minutes spent on Phone/Video with Pt.: 15 Assessment and Plan Assessment & Plan (1) Chronic insomnia: Code(s): F51.04 - Psychophysiologic insomnia Plan: Prescription was sent for trazodone 50 mg per tablet to take 1 and half tablets or 75 mg at bedtime as needed for insomnia. Goes possible side effects of medication which may include drowsiness or dizziness upon waking up the next morning. Do not take with any alcohol. Take only as needed Medications: Changed From trazodone 50 mg PO BEDTIME PRN 30 tabs 0RF sleep To trazodone 75 mg (1.5 x 50 mg) PO BEDTIME 3 months PRN 135 tabs 0RF insomnia Coding Level of Care Code Tele Est Pt Level 3 (01890) Diagnoses Chronic insomnia F51.04
== END 2023-08-03 15:27 | disposition home or self-care (01) ==
LOC: HO.HMGC 14:31
PROVIDERS: PCP Internal Medicine; Visit Provider Internal Medicine
DX: F51.04 Psychophysiologic insomnia (principal)
CPT/HCPCS: 99213

== ENCOUNTER 2023-09-28 11:13 | Outpatient (AMB) | payer OTHER, SELFPAY ==
--- NOTE | 2023-09-28 11:13 | A.OFFVIS_ITS ---
Intake Vital Signs 09/28/23 11:26 Height 5 ft 5 in Weight 165 lb 2.02 oz BMI 27.5 BP 132/60 Blood Pressure Location Rt brachial Position Sitting Pulse 78 Pulse Source Pulse Oximeter Temp 97.2 F Temp Source Skin Pulse Oximetry (%) 97 Oxygen Delivery Method Room Air Intake Visit Reasons: right leg pain Intake Note: Patient presents today for right leg pain. Reports Tramadol is not as effective as before, wondering if it can be increased. 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 De La Rosa is a 78 year old female usually seen in the office for Lumbar artheritis. She is here today for an urgent visit due to increase pain to her right hip that affects sleep and movement. It has been on for about a week and the tramadol has not been effective for this pain per patient. The pain in the lower back sometimes radiates down to the right leg but this feels different and tender per patient. She denies impact or injury to the hip and leg. She does take tincture of THC at nighttime for sleep. She says the THC helps her sleep but does not cause her significant daytime sedation. [facility]LY [facility], [facility] Medical History (Updated 09/28/23 @ 11:56 by Ava Gray, [facility]) Trochanteric bursitis, right hip Chronic insomnia Hx of myocardial infarction Myocardial infarct Major depression in full remission Type 2 diabetes mellitus without complication, without long-term current use of insulin Essential hypertension Acquired hypothyroidism CAD (coronary artery disease) COPD (chronic obstructive pulmonary disease) Surgical History Hx of colonoscopy History of heart artery stent History of total hysterectomy Family History Father Parkinson disease Scoliosis Cancer Mother Colon cancer Maternal Grandmother No problems noted. Maternal Grandfather No problems noted. Paternal Grandmother Lung cancer Paternal Grandfather Alcoholism Diabetes mellitus Social History Housing: House Alcohol intake: current Alcohol intake frequency: a few times a week Patient Tobacco Use Status: Current everyday Tobacco user Tobacco use type: Cigarette and Smokeless Tobacco Years Smoked: 14 e-Cigarette/Vaping Use: Currently Using Current occupational status: retired Cognitive needs: No Hearing needs: No Vision needs: Yes Review of Systems Const All systems reviewed & are unremarkable except as noted in HPI and below Physical Exam APPEARANCE: Patient in no acute distress, groomed, nourished EXTREMITIES: No edema, no calf tenderness, normal peripheral pulses. Lumbar Spine: Scoliosisl.? Some limitation of flexion with mild pain at 75 degrees. No tenderness. Shoulders:? Full range of motion without pain. No tenderness, weakness, swelling, increased warmth or erythema. Hips:? decrease range of motion wit pain on right. No tenderness to glutes. Right side muscle fatigue to lower flank likely due to scoliosis Hip bursa: Right severe tenderness. ? Office Procedures Joint Injection/Drain Joint Injection/Drain Primary Site: other Prep: site was prepped using aseptic technique and injection warnings given Injected: 80 mg of, Kenalog, with 1 mL of and 1% plain lidocaine Approach Used: posterolateral Procedure: The patient tolerated the procedure well Coding 26235 - Glenohumeral/Tronchanteric Bursa/Intraarticular Procedure code (CPT) selection complete Assessment & Plan Assessment & Plan (1) Lumbosacral spondylosis with radiculopathy: Code(s): M47.27 - Other spondylosis with radiculopathy, lumbosacral region (2) Trochanteric bursitis, right hip: Code(s): M70.61 - Trochanteric bursitis, right hip Plan #Right Trochanteric Bursitis: MsVignesh De La Rosa is a 78 yo F who presents to the office for hip tenderness to the right side. Marked tenderness on palpation to area, pain increases with sitting and walking. I will give her a corticosteroid injection to the right hip bursa. I also gave patient a print out of exercises to do at home. She knows to take it easy with the leg for the next few days Usually, her symptoms are improved with the use of the tramadol 100 mg BID. Patient desires an increase in the dosage but I told her no, that would not be a safe intervention on my part. I think the current dose is adequate and medication do not prevent bursitis from occurring. If the pain persists, and walking not improved, we will consider to ho a hip xray to assess for fracture. #LumboSacral Spodylosis: Continue with Tramadol. Patient walks with a cane and would like a handicap placard. I have completed the form for her and will process accordingly. I spent 35 minutes reviewing records, evaluating patient and documenting. Orders: Orders AMB Joint Injection/Aspiration Today M70.61 - Trochanteric bursitis, right hip Coding Level of Care Code Est Pt Level 3 (49258) Diagnoses Lumbosacral spondylosis with radiculopathy M47.27 Trochanteric bursitis, right hip M70.61 CPT Codes Coding - Joint 7: 12948 - Glenohumeral/Tronchanteric Bursa/Intraarticular ([id number])
[2023-09-28 11:26] VITALS: BP 132/60; PULSE 78; TEMP 36.2; O2SAT 97; BMI 27.5
== END 2023-09-28 11:59 | disposition home or self-care (01) ==
PROVIDERS: PCP Internal Medicine; Visit Provider Nurse Practitioner Family
DX: M70.61 Trochanteric bursitis, right hip (principal); M47.27 Other spondylosis with radiculopathy, lumbosacral region
CPT/HCPCS: 20610; 99213

== ENCOUNTER → 2023-09-28 11:13 | Outpatient (BNVA) | payer OTHER, SELFPAY | PROVIDERS: PCP Internal Medicine; Visit Provider Nurse Practitioner Family | DX: M47.27 Other spondylosis with radiculopathy, lumbosacral region (principal); M70.61 Trochanteric bursitis, right hip | CPT/HCPCS: 20610; 99212; J3301 ==

== ENCOUNTER 2023-10-25 13:30 | Outpatient (AMB) | payer OTHER, SELFPAY ==
--- NOTE | 2023-10-25 13:34 | MHC.OFFVIS ---
Intake Vital Signs 10/25/23 13:42 Height 5 ft 5 in Weight 165 lb 4 oz BMI 27.5 BP 144/75 H Blood Pressure Location Lt brachial Position Sitting Respiration 14 Pulse 56 Pulse Source Pulse Oximeter Pulse Oximetry (%) 94 Oxygen Delivery Method Room Air Intake Visit Reasons: spondylosis with radiculopathy, lumbosacral region Allergies amoxicillin [Augmentin] Adverse Reaction (Unknown, Verified 09/28/23 11:26) N/V high dose influenza Adverse Reaction (Uncoded 09/28/23 11:26) Hives HPI spondylosis with radiculopathy, lumbosacral region HPI Details Patient is a pleasant 78 years old female with prior history of lumbar spondylosis with myelopathy and lumbar spinal stenosis, presents today for initial evaluation of chronic low back pain with left sided radiculopathy. Reports frequent tripping over her pets or while walking and has been frequently loosing her balance. She uses cane with ambulation and awaits for walker with seat. Denies any past or recent trauma or injury. Back pain is axial and also radiates into her left lateral and anterior thigh with intermittent numbness and tingling in her left davies. Reports chronic cramping and tingling in her ankles and toes. Patient reports recent corticosteroid injection to her right trochanteric bursa with good result. She also takes tramadol 100 mg BID and tincture of THC at nighttime for sleep and pain. Pain affects her daily activities, functioning, sleep, social interactions and quality of life. Denies any fever, abdominal or groin pain, bladder or bowel dysfunction or saddle anesthesia. Previous lumbar spine MRI showed advanced multilevel lumbar spondylosis is accentuated by the patient's rotatory dextroscoliosis and is worst at L3-L4, where degenerative changes lead to moderate to severe canal stenosis and significant apparent mass effect on the traversing left L4 nerve root. Patient denies previous spine surgery or injections. Reports she was told she was non-surgical candidate by her previous provider. Patient is interested in interventional treatments to address her axial and radicular pain symptoms. Location Lower back pain radiating to her lower extremities Duration Chronic pain for >7 years, fell on ice 2 vertebrae went into my tailbone Characteristics of symptom or complaint Aching, radiating, numbness, tingling, sharp, stabbing, burning Aggravating or associated factors Walking, prolonged standing, movements, cold weather Relieving factors Sitting, heat therapy, tramadol, THC tincture (sleep/pain), Tylenol, NSAIDs Treatment Right GTB cortisone injection 09/2023, PT in past [facility] Medical History Trochanteric bursitis, right hip Chronic insomnia Hx of myocardial infarction Myocardial infarct Major depression in full remission Type 2 diabetes mellitus without complication, without long-term current use of insulin Essential hypertension Acquired hypothyroidism CAD (coronary artery disease) COPD (chronic obstructive pulmonary disease) Surgical History Hx of colonoscopy History of heart artery stent History of total hysterectomy Family History Father Parkinson disease Scoliosis Cancer Mother Colon cancer Maternal Grandmother No problems noted. Maternal Grandfather No problems noted. Paternal Grandmother Lung cancer Paternal Grandfather Alcoholism Diabetes mellitus Social History Housing: House Alcohol intake: current Alcohol intake frequency: a few times a week Patient Tobacco Use Status: Current everyday Tobacco user Tobacco use type: Cigarette and Smokeless Tobacco Years Smoked: 14 e-Cigarette/Vaping Use: Currently Using Current occupational status: retired Cognitive needs: No Hearing needs: No Vision needs: Yes Review of Systems Const All systems reviewed & are unremarkable except as noted in HPI and below Physical Exam Vital Signs: Last Vital Signs Pulse 56 10/25/23 13:42 Resp 14 10/25/23 13:42 BP 144/75 H 10/25/23 13:42 Pulse Ox 94 10/25/23 13:42 Oxygen Delivery Method Room Air 10/25/23 13:42 BMI result Body Mass Index 27.5 General: Appears afebrile. Alert and oriented. Mood and affect appropriate. Follows and participates in conversation appropriately. Respiratory effort is unlabored. No cough. No nasal discharge. Able to transition from sit to stand unassisted. Ambulates with bilaterally normal heel strike and toe off, reports increase pain with standing on toes. Back/Spine/Pelvis Other: Limited lumbar ROM due to pain. Antalgic gait with mild limping. Can flex forward to 60-65 degrees and extend to 5-10 degrees before experiencing lumbar pain. Demonstrates 5/5 right and 4/5 left strength of quadriceps bilaterally as well as flexion/dorsiflexion of bilateral feet against resistance. 2+ pedal pulses bilaterally. Seated straight leg rise with dorsiflexion positive on the left. +1 left +2 right patellar and +2 achilles reflexes bilaterally. Facet loading test positive bilaterally. Rommel?s, Pelvic compression and Stinchfield tests are positive on the right, equivocal on the left. No groin pain with I/E hip rotations. Valsalva maneuver negative. Cervical Spine: loss of normal cervical lordosis, cervical muscular tenderness and No Cervical spine tenderness Thoracic/Lumbar Spine: thoracic and lumbar spine normal to inspection, No Thoracic/lumbar spine scar(s), Lasegue's sign positive on the left and diffuse, pain with thoraco-lumbar ROM, paraspinal muscle tenderness, thoraco-lumbar ROM limited, Thoracic/lumbar scoliosis, No thoracic spinal tenderness and lumbar spinal tenderness Pelvis: buttock tenderness on the right Sacroiliac joints: on the right tender to palpation and on the left nontender Results Reviewed Results Reviewed: MR LUMBAR SPINE WITHOUT CONTRAST 02/21/2016 CLINICAL INFORMATION: 70-year-old woman with myelopathy. COMPARISON: 02/04/2016 radiographs TECHNIQUE: MRI of the lumbar spine was obtained without contrast. FINDINGS: ALIGNMENT: Coronal images demonstrate a prominent dextroscoliosis with the apex of curvature centered at the L2 level. There is about 3 mm of right lateral translation of L3 on L4. Bulky left sided marginal osteophyte formation is noted at L1-L2, L2-L3, and L3-L4 and bulky right marginal osteophyte formation is present at L4-L5. On sagittal images, there is loss of the normal lumbar lordosis. VERTEBRAL BODIES: Normal in height. No evidence of acute or chronic compression fracture. BONE MARROW: Degenerative endplate marrow signal and associated contour changes are most conspicuous to the left of midline at L2-L3 and L3-L4 where there is a Modic type I component. Degenerative endplate changes are also noted to the right of midline at L4-L5. INTERVERTEBRAL DISCS: Diffusely desiccated with moderate loss of height. CONUS MEDULLARIS, CAUDA EQUINA, AND SOFT TISSUES: The soft tissues are normal. The conus terminates at the L1-L2 level. L1-L2: Disc osteophyte complex is eccentric to the left and there is mild facet arthrosis. The canal remains patent. There is mild narrowing of the left neural foramen. L2-L3: Bulky disc osteophyte complex is eccentric to the left and there is mild to moderate facet arthrosis. The canal and foramina remain patent. There is mild narrowing of the left lateral recess. L3-L4: There is disc osteophyte complex and marked facet arthrosis with bulky hypertrophy of the ligamentum flavum. An 8-9 mm synovial cyst arises from the left facet and projects into the canal as well. Findings lead to moderate to severe asymmetric canal stenosis and mild to moderate narrowing of the left neural foramen. There is significant left lateral recess stenosis with mass effect on the traversing left L4 nerve root. L4-L5: Disc osteophyte complex is eccentric to the right and there is moderate facet arthrosis and ligamentous hypertrophy. The canal remains patent. There is mild narrowing of the right neural foramen and lateral recess. L5-S1: There is a disc bulge and marked facet arthrosis with bulky ligamentous hypertrophy. Findings lead to mild canal stenosis and moderate narrowing of the right neural foramen IMPRESSION: Advanced multilevel lumbar spondylosis is accentuated by the patient's rotatory dextroscoliosis and is worst at L3-L4, where degenerative changes lead to moderate to severe canal stenosis and significant apparent mass effect on the traversing left L4 nerve root. Assessment & Plan Assessment & Plan (1) Lumbar spondylosis: Code(s): M47.816 - Spondylosis without myelopathy or radiculopathy, lumbar region (2) Left lumbar radiculopathy: Code(s): M54.16 - Radiculopathy, lumbar region (3) Lumbar degenerative disc disease: Code(s): M51.36 - Other intervertebral disc degeneration, lumbar region Plan Discussed interventional treatments for axial, facetogenic, vertebrogenic and radicular back pain. We will proceed with updating patient's spine imaging prior to any treatments. Lumbar spine imaging to assess degree of degenerative changes, any subluxation, listhesis, compression fractures or pars defects. For ongoing axial low back pain will tentatively plan for diagnostic bilateral L3-L4 DR L5 medial branch blocks with local and fluoroscopy for potential Sprint PNS trial vs RFA procedures. Informational pamphlets provided to patient. Expectations, risks and benefits were reviewed. Patient also exhibits sacroiliac joint pain on the right. MRI of the lumbar spine to assess for neural integrity and compression and follow up on previous MRI findings. Patient will return to the clinic to discuss results of the MRI findings when it is done and consider interventional therapy as indicated. All questions and concerns have been answered and patient agreed with the plan. Follow up for xray/MRI results and sooner as needed. Orders: Orders XR lumbar spine 6V w bending Today M47.816 - Spondylosis without myelopathy or radiculopathy, lumbar region, M51.36 - Other intervertebral disc degeneration, lumbar region, M54.16 - Radiculopathy, lumbar region MR lumbar spine wo con Today M47.816 - Spondylosis without myelopathy or radiculopathy, lumbar region, M51.36 - Other intervertebral disc degeneration, lumbar region, M54.16 - Radiculopathy, lumbar region Coding Level of Care Code New Pt Level 4 (74813) Diagnoses Lumbar spondylosis M47.816 Left lumbar radiculopathy M54.16 Lumbar degenerative disc disease M51.36
[2023-10-25 13:42] VITALS: BP 144/75; PULSE 56; RESP 14; O2SAT 94; BMI 27.5
== END 2023-10-25 15:00 | disposition home or self-care (01) ==
PROVIDERS: PCP Internal Medicine; Referring Provider Nurse Practitioner Family; Visit Provider Nurse Practitioner Family
DX: M47.816 Spondylosis without myelopathy or radiculopathy, lumbar region (principal); M54.16 Radiculopathy, lumbar region; M51.36 Other intervertebral disc degeneration, lumbar region
CPT/HCPCS: 99204; 99214

== ENCOUNTER → 2023-10-25 13:30 | Outpatient (BNVA) | payer OTHER, SELFPAY | PROVIDERS: PCP Internal Medicine; Referring Provider Nurse Practitioner Family; Visit Provider Nurse Practitioner Family | DX: M47.816 Spondylosis without myelopathy or radiculopathy, lumbar region (principal); M54.16 Radiculopathy, lumbar region; M51.36 Other intervertebral disc degeneration, lumbar region | CPT/HCPCS: 99202 ==

== ENCOUNTER 2023-11-20 12:54 | Outpatient (REF) | payer OTHER, SELFPAY ==
--- NOTE | ~2023-11-20 | MR_ITS ---
MR LUMBAR SPINE WITHOUT CONTRAST CLINICAL INFORMATION: Intervertebral disc degeneration/lumbar region. COMPARISON: Lumbar spine MRI 02/21/2016. TECHNIQUE: MRI of the lumbar spine was obtained using routine sequences without contrast. FINDINGS: There are 5 nonrib-bearing lumbar-type vertebral bodies. Severe rightward convex scoliotic curvature of the lumbar spine associated with grade 1 right lateral listhesis of L3 on L4, progressed when compared to the previous study. Grade 1 degenerative anterolisthesis of L5 on S1. Moderate to severe disc volume loss at the L2-L3, L3-L4, L4-L5, and L5-S1 levels, all progressed. Modic type I endplate signal changes at L2-L3 and L3-L4. No additional bone marrow edema. No acute fractures. Chronic endplate Schmorl's nodes at all lumbar levels. Multilevel endplate osteophytes. Conus terminates at the T12-L1 level. Bilateral parapelvic cysts. Right foraminal perineural cyst at T10-T11. L1-L2: Left lateral disc osteophyte results in mild left-sided foraminal encroachment. No central canal and no right foraminal stenosis. L2-L3: Left paracentral/left lateral disc osteophyte protrusion results in similar left subarticular zone stenosis with mass effect on the traversing left L3 nerve root and similar mild left-sided foraminal encroachment without exiting nerve root compression. Mild left-sided central canal stenosis unchanged. L3-L4: Diffuse disc osteophyte complex and severe left greater then right facet arthropathy and ligamentum flavum thickening. Findings in concert result in similar appearing moderate to severe central canal stenosis, right greater than left subarticular zone stenosis with mass effect on the traversing right L4 nerve root, and moderate left-sided foraminal stenosis with mass effect on the exiting left L3 nerve root. L4-L5: Right paracentral/right lateral disc osteophyte protrusion results in similar compression of the extraforaminal right L4 nerve root and similar right subarticular zone stenosis with mild mass effect on the traversing right L5 nerve root within the right subarticular zone. No central canal and no left foraminal stenosis.. L5-S1: Grade 1 degenerative anterolisthesis. Diffuse disc osteophyte and severe bilateral facet arthropathy and ligamentum flavum thickening. Findings in concert result in similar moderate to severe central canal stenosis, severe right subarticular zone stenosis with compression of the traversing right S1 nerve root, and moderate to severe right foraminal stenosis with compression of the exiting right L5 nerve root. MR/MR lumbar spine wo con IMPRESSION: * Progressive severe rightward convex scoliotic curvature of the lumbar spine superimposed on advanced multilevel degenerative disc disease and hypertrophic facet arthropathy: * At L5-S1, grade 1 degenerative anterolisthesis and advanced multifactorial degenerative changes result in similar moderate to severe central canal stenosis, severe right subarticular zone stenosis with compression of the traversing right S1 nerve root, and moderate to severe right foraminal stenosis with compression of the exiting right L5 nerve root. * At L4-L5, a right paracentral/right lateral disc osteophyte protrusion results in similar compression of the extraforaminal right L4 nerve root and similar right subarticular zone stenosis with mild mass effect on the traversing right L5 nerve root within the right subarticular zone. * At L3-L4, advanced multifactorial degenerative changes result in similar appearing moderate to severe central canal stenosis, right greater than left subarticular zone stenosis with mass effect on the traversing right L4 nerve root, and moderate left-sided foraminal stenosis with mass effect on the exiting left L3 nerve root. * At L2-L3, a left paracentral/left lateral disc osteophyte protrusion results in similar left subarticular zone stenosis with mass effect on the traversing left L3 nerve root and similar mild left-sided foraminal encroachment without exiting nerve root compression. Mild left-sided central canal stenosis unchanged.
== END 2023-11-20 12:55 | disposition home or self-care (01) ==
LOC: HO.MRI 12:54
PROVIDERS: PCP Internal Medicine; Visit Provider Nurse Practitioner Family
DX: M51.36 Other intervertebral disc degeneration, lumbar region (principal); M54.16 Radiculopathy, lumbar region; M47.816 Spondylosis without myelopathy or radiculopathy, lumbar region
CPT/HCPCS: 72148

== ENCOUNTER 2023-11-30 11:08 | Outpatient (AMB) | payer OTHER, SELFPAY ==
--- NOTE | 2023-11-30 11:16 | A.SPINEOV_ITS ---
Intake Intake Visit Reasons: Lumbar radiculopathy Intake Note: Ms. Richardson is here today c/o Lower back pain which makes it difficult to walk. 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 She is a pleasant 78-year-old female who comes in today with a chief complaint of low back pain with radiation into her right lower extremity for the past 7 years. She states that her low back pain is the worst symptom she has. When describing the r adiation she states it starts in her low back shoots across her lateral thigh in terminates at her right lateral knee. She reports that the initial inciting incident was a fall on the ice where she landed on her buttocks 25 years ago. She had low back pain alone after that incident. She states that the exacerbation of her low back pain with radiculopathy begin 7 years ago and came on with no inciting incident and has worsened since then. Of note, she also had a fall a few weeks ago which cause significant right hip pain. This was treated with right-sided greater trochanter injection 2 weeks ago with success per her report. She states she has never had cortisone injections in the lumbar spine. She has been to physical therapy multiple times in the past for this issue, and found that it was not helpful. She has taken a plethora of [id number] remedies in an attempt to solve this issue, she reports trying Tylenol, ibuprofen, naproxen, ice, heat, pain patches, pain gels and creams. She reports that standing and walking exacerbate her pain, and that lying flat provides complete relief of her pain. As a result of this she does not have issues sleeping at night. PMH: Asthma, hyperlipidemia, depression, anxiety, hypothyroidism, GERD, insomnia, Hypertension, hysterectomy, in 1976, stent placed for heart attack in 1995. She is not currently on blood thinners per her report. Social hx: Patient reports vaping nicotine occasionally throughout the day. She denies any other substance use. Medications: Albuterol, aspirin, atorvastatin, ferrous sulfate, vitamin D3, citalopram, docusate, HCTZ, levothyroxine, omeprazole, tramadol, trazodone. Allergies: Influenza vaccine, amoxicillin. Physical exam: The patient has 5/5 strength in her upper and lower extremities, however she does elicit pain to strength testing in her lower extremities. Her reflexes are 1+ hypoactive diffusely. Her right lateral thigh has reduced sensation compared to the contralateral leg. The rest of her sensation is grossly intact. She hunches over when ambulating and seems to have a somewhat antalgic gait, favoring the left side. She is able to ambulate without the assistance of a walking device, and she rises from his seated position without assistance, however does elicit pain in doing so. Imaging review: MRI of the lumbar spine completed at [facility] shows a fairly significant degenerative scoliosis on localizer view. This is causing her to have moderate bilateral foraminal stenosis at L1-2 and L2-3. The central canal at these levels appear patent. At L3-4 there is severe central canal stenosis and severe bilateral foraminal stenosis. At L4-5 there is moderate central canal stenosis and moderate bilateral foraminal stenosis, worse on the right. At L5-S1 there is moderate central canal stenosis and moderate bilateral foraminal stenosis. It appears that the apex of the dextroscoliosis is at L2. Impression: Estrella is a pleasant 78-year-old female who comes in today with a chief complaint of low back pain which initially began 25 years ago when slipping and falling on the ice. She states that roughly 7 years ago this pain was exacerbated without any inciting incident, and began being accompanied by radicular pain into her right lower extremity. As a result of this she has had significant difficulty ambulating, has to hunch over when she walks, and elicits pain when engaging her lower extremities. I believe she is is suffering from severe spinal stenosis and neurogenic claudication at this time. She states that her pain is worst on the right, and has been accompanied by a feeling of numbness/reduced sensation over her right lateral thigh. It is likely that the cause of her worst symptom (low back pain) is her degenerative dextroscoliosis. I discussed the possibility of a scoliosis correction surgery and thoroughly described to the patient that this would mean a multilevel fusion of her lumbar spine. I also discussed what the recovery process would look like, and exaplined to her that if this route was chosen she would be in quite a deal of pain postoperatively until she heals. She states that she would be willing to go through with the surgery if we feel it will be beneficial for her as she can not continue to live with the back pain that she has. I also discussed the possibility of lumbar decompression at multiple levels, however this may simply cause increased instability to the already unstable degenerative scoliosis. I am going to have Estrella go and obtain a set of flexion/extension x-rays today so these can be compared alongside her MRI. I will be reviewing this case with Dr. Hogan early next week and will call Estrella if he believes there is any surgical solution we can offer to help resolve her pain. Thank you for allowing us to care for your patient. The total time spent with this visit with this patient was 45 minutes reviewing history, physical exam, MRI imaging review, and implementation of treatment plan or further diagnostic testing Darron Hogan MD,PhD [facility] Orders: Orders XR lumbar spine 4V min Today M48.061 - Spinal stenosis, lumbar region without neurogenic claudication Coding Level of Care Code New Pt Level 4 (61630) Diagnoses Spinal stenosis of lumbar region with neurogenic claudication M48.062 Neurogenic claudication status: with neurogenic claudication
== END 2023-11-30 11:43 | disposition home or self-care (01) ==
PROVIDERS: PCP Internal Medicine; Referring Provider Anesthesiology; Visit Provider Physician Assistant
DX: M48.062 Spinal stenosis, lumbar region with neurogenic claudication (principal)
CPT/HCPCS: 99204; 99214

== ENCOUNTER 2023-11-30 11:08 | Outpatient (REF) | payer OTHER, SELFPAY ==
--- NOTE | ~2023-11-30 | XR_ITS ---
EXAMINATION: XR LUMBOSACRAL SPINE WITH OBLIQUES CLINICAL INFORMATION: Back pain. Spinal stenosis without neurogenic claudication. COMPARISON: MRI lumbar spine of 11/20/2023. TECHNIQUE: AP, lateral neutral, flexion and extension views of the lumbar spine. FINDINGS: Bones are diffusely demineralized. Atherosclerotic aortic calcifications. Severe rightward curvature of the lumbar spine with notable grade 1 lateral listhesis of L3 on L4. Degenerative changes with loss of disc space height and hypertrophic change at L1-L2 and L2-L3. The L4-L5 and L5-S1 disc spaces are not well visualized, suggesting possible fusion, and correlation with surgical history recommended. Advanced facet arthritis in the mid to lower lumbar spine XR/XR lumbar spine 4V min IMPRESSION: 1. Severe degenerative disc disease at L1-L2 and L2-L3. 2. L4-L5 and L5-S1 disc spaces are not well visualized, suggesting possible fusion, and correlation with surgical history recommended.
== END 2023-11-30 11:09 | disposition home or self-care (01) ==
LOC: HO.HOSX 11:08
PROVIDERS: PCP Internal Medicine; Visit Provider Physician Assistant
DX: M48.062 Spinal stenosis, lumbar region with neurogenic claudication (principal)
CPT/HCPCS: 72110; 99202

== ENCOUNTER 2023-12-06 09:58 | Outpatient (AMB) | payer OTHER, SELFPAY ==
--- NOTE | 2023-12-06 10:03 | MHC.OFFVIS ---
Intake Vital Signs 12/06/23 10:08 12/06/23 10:09 Height 5 ft 5 in Weight 165 lb 3 oz BMI 27.5 BP 203/81 H 161/70 H Blood Pressure Location Rt brachial Lt brachial Position Sitting Sitting Pulse 79 Pulse Source Pulse Oximeter Pulse Oximetry (%) 99 Oxygen Delivery Method Room Air Intake Visit Reasons: MRI follow up Intake Note: Pain 0/10 today, Records Analyst Required: No Accompanied by: Self / Same As Patient Allergies amoxicillin [Augmentin] Adverse Reaction (Unknown, Verified 12/06/23 10:08) N/V high dose influenza Adverse Reaction (Uncoded 09/28/23 11:26) Hives HPI HPI Comments History of Present Illness Details Patient presents today for follow up to discuss recent lumbar spine MRI results. Patient continues to endorse significant low back pain with right sided radiculopathy with neurogenic claudication due to severe spinal stenosis and degenerative scoliosis. She was also sent for Neurosurgical evaluation and was seen by [facility] team on 11/30/23 and 12/05/23 with discussion for possibility of a scoliosis correction surgery and the possibility of lumbar decompression at multiple levels after re-evaluation with CT scan. Patient reports that CT scan was not scheduled yet and is concerned for this. Patient reports she her back pain increases to 8/10 after walking for <5-7 min or standing <5 min. She recently received walker with seat and has been taking frequent breaks during her walking or standing. Patient denies any increase in back pain during sitting but can only tolerate sitting for about 20 min. She continues to utilize tramadol, Tylenol, NSAIDs, heat therapy and THC tincture for her chronic pain. Denies any recent cough, cold, infection, fever, any significant changes in her medical history, medications or recent hospitalizations. [facility] notes, DK Rodriguez 12/05/23: The patient's case was reviewed with Dr. Hogan she is going to be sent for a CT scan of lumbar spine and that will be scheduled to see Dr. Hogan again after this. The CT scan will be to evaluate for L2-3 fusion. If she is fused at this level at allow for scoliosis correction under this segment. PRIOR: Patient is a pleasant 78 years old female with prior history of lumbar spondylosis with myelopathy and lumbar spinal stenosis, presents today for initial evaluation of chronic low back pain with left sided radiculopathy. Reports frequent tripping over her pets or while walking and has been frequently loosing her balance. She uses cane with ambulation and awaits for walker with seat. Denies any past or recent trauma or injury. Back pain is axial and also radiates into her left lateral and anterior thigh with intermittent numbness and tingling in her left davies. Reports chronic cramping and tingling in her ankles and toes. Patient reports recent corticosteroid injection to her right trochanteric bursa with good result. She also takes tramadol 100 mg BID and tincture of THC at nighttime for sleep and pain. Pain affects her daily activities, functioning, sleep, social interactions and quality of life. Denies any fever, abdominal or groin pain, bladder or bowel dysfunction or saddle anesthesia. Previous lumbar spine MRI showed advanced multilevel lumbar spondylosis is accentuated by the patient's rotatory dextroscoliosis and is worst at L3-L4, where degenerative changes lead to moderate to severe canal stenosis and significant apparent mass effect on the traversing left L4 nerve root. Patient denies previous spine surgery or injections. Reports she was told she was non-surgical candidate by her previous provider. Patient is interested in interventional treatments to address her axial and radicular pain symptoms. Location Lower back pain radiating to her lower extremities Duration Chronic pain for >7 years, fell on ice 2 vertebrae went into my tailbone Characteristics of symptom or complaint Aching, radiating, numbness, tingling, sharp, stabbing, burning Aggravating or associated factors Walking, prolonged standing, movements, cold weather Relieving factors Sitting, heat therapy, tramadol, THC tincture (sleep/pain), Tylenol, NSAIDs Treatment Right GTB cortisone injection 09/2023, PT in past PFSH Medical History Trochanteric bursitis, right hip Chronic insomnia Hx of myocardial infarction Myocardial infarct Major depression in full remission Type 2 diabetes mellitus without complication, without long-term current use of insulin Essential hypertension Acquired hypothyroidism CAD (coronary artery disease) COPD (chronic obstructive pulmonary disease) Surgical History Hx of colonoscopy History of heart artery stent History of total hysterectomy Family History Father Parkinson disease Scoliosis Cancer Mother Colon cancer Maternal Grandmother No problems noted. Maternal Grandfather No problems noted. Paternal Grandmother Lung cancer Paternal Grandfather Alcoholism Diabetes mellitus Social History Housing: House Alcohol intake: current Alcohol intake frequency: a few times a week Patient Tobacco Use Status: Current everyday Tobacco user Tobacco use type: Cigarette and Smokeless Tobacco Years Smoked: 14 e-Cigarette/Vaping Use: Currently Using Current occupational status: retired Cognitive needs: No Hearing needs: No Vision needs: Yes Review of Systems Const All systems reviewed & are unremarkable except as noted in HPI and below Physical Exam Vital Signs: Last Vital Signs Pulse 79 12/06/23 10:08 BP 161/70 H 12/06/23 10:09 Pulse Ox 99 12/06/23 10:08 Oxygen Delivery Method Room Air 12/06/23 10:08 BMI result Body Mass Index 27.5 General: Appears afebrile. Alert and oriented. Mood and affect appropriate. Follows and participates in conversation appropriately. Respiratory effort is unlabored. No cough. Able to transition from sit to stand unassisted but this exacerbates her back pain. Ambulates with bilaterally normal heel strike and toe off, reports increase pain with standing on toes. Walking today without assisting devices, in hunched over position, antalgic gait with mild limping. Back/Spine/Pelvis Cervical Spine: loss of normal cervical lordosis, cervical muscular tenderness and No Cervical spine tenderness Thoracic/Lumbar Spine: thoracic and lumbar spine normal to inspection, No Thoracic/lumbar spine scar(s), Lasegue's sign positive bilateral, pain with thoraco-lumbar ROM, paraspinal muscle tenderness, thoraco-lumbar ROM limited, Thoracic/lumbar scoliosis, No thoracic spinal tenderness, lumbar spinal tenderness and straight leg raise positive Pelvis: buttock tenderness on the right Sacroiliac joints: on the right tender to palpation and on the left nontender Extrem General: Yes capillary refill normal, Yes no clubbing, cyanosis or edema and Yes no calf tenderness Results Reviewed Results Reviewed: XR LUMBOSACRAL SPINE WITH OBLIQUES 11/30/23 CLINICAL INFORMATION: Back pain. Spinal stenosis without neurogenic claudication. COMPARISON: MRI lumbar spine of 11/20/2023. TECHNIQUE: AP, lateral neutral, flexion and extension views of the lumbar spine. FINDINGS: Bones are diffusely demineralized. Atherosclerotic aortic calcifications. Severe rightward curvature of the lumbar spine with notable grade 1 lateral listhesis of L3 on L4. Degenerative changes with loss of disc space height and hypertrophic change at L1-L2 and L2-L3. The L4-L5 and L5-S1 disc spaces are not well visualized, suggesting possible fusion, and correlation with surgical history recommended. Advanced facet arthritis in the mid to lower lumbar spine IMPRESSION: 1. Severe degenerative disc disease at L1-L2 and L2-L3. 2. L4-L5 and L5-S1 disc spaces are not well visualized, suggesting possible fusion, and correlation with surgical history recommended. MR LUMBAR SPINE WITHOUT CONTRAST 11/20/23 CLINICAL INFORMATION: Intervertebral disc degeneration/lumbar region. COMPARISON: Lumbar spine MRI 02/21/2016. TECHNIQUE: MRI of the lumbar spine was obtained using routine sequences without contrast. FINDINGS: There are 5 nonrib-bearing lumbar-type vertebral bodies. Severe rightward convex scoliotic curvature of the lumbar spine associated with grade 1 right lateral listhesis of L3 on L4, progressed when compared to the previous study. Grade 1 degenerative anterolisthesis of L5 on S1. Moderate to severe disc volume loss at the L2-L3, L3-L4, L4-L5, and L5-S1 levels, all progressed. Modic type I endplate signal changes at L2-L3 and L3-L4. No additional bone marrow edema. No acute fractures. Chronic endplate Schmorl's nodes at all lumbar levels. Multilevel endplate osteophytes. Conus terminates at the T12-L1 level. Bilateral parapelvic cysts. Right foraminal perineural cyst at T10-T11. L1-L2: Left lateral disc osteophyte results in mild left-sided foraminal encroachment. No central canal and no right foraminal stenosis. L2-L3: Left paracentral/left lateral disc osteophyte protrusion results in similar left subarticular zone stenosis with mass effect on the traversing left L3 nerve root and similar mild left-sided foraminal encroachment without exiting nerve root compression. Mild left-sided central canal stenosis unchanged. L3-L4: Diffuse disc osteophyte complex and severe left greater then right facet arthropathy and ligamentum flavum thickening. Findings in concert result in similar appearing moderate to severe central canal stenosis, right greater than left subarticular zone stenosis with mass effect on the traversing right L4 nerve root, and moderate left-sided foraminal stenosis with mass effect on the exiting left L3 nerve root. L4-L5: Right paracentral/right lateral disc osteophyte protrusion results in similar compression of the extraforaminal right L4 nerve root and similar right subarticular zone stenosis with mild mass effect on the traversing right L5 nerve root within the right subarticular zone. No central canal and no left foraminal stenosis.. L5-S1: Grade 1 degenerative anterolisthesis. Diffuse disc osteophyte and severe bilateral facet arthropathy and ligamentum flavum thickening. Findings in concert result in similar moderate to severe central canal stenosis, severe right subarticular zone stenosis with compression of the traversing right S1 nerve root, and moderate to severe right foraminal stenosis with compression of the exiting right L5 nerve root. IMPRESSION: * Progressive severe rightward convex scoliotic curvature of the lumbar spine superimposed on advanced multilevel degenerative disc disease and hypertrophic facet arthropathy: * At L5-S1, grade 1 degenerative anterolisthesis and advanced multifactorial degenerative changes result in similar moderate to severe central canal stenosis, severe right subarticular zone stenosis with compression of the traversing right S1 nerve root, and moderate to severe right foraminal stenosis with compression of the exiting right L5 nerve root. * At L4-L5, a right paracentral/right lateral disc osteophyte protrusion results in similar compression of the extraforaminal right L4 nerve root and similar right subarticular zone stenosis with mild mass effect on the traversing right L5 nerve root within the right subarticular zone. * At L3-L4, advanced multifactorial degenerative changes result in similar appearing moderate to severe central canal stenosis, right greater than left subarticular zone stenosis with mass effect on the traversing right L4 nerve root, and moderate left-sided foraminal stenosis with mass effect on the exiting left L3 nerve root. * At L2-L3, a left paracentral/left lateral disc osteophyte protrusion results in similar left subarticular zone stenosis with mass effect on the traversing left L3 nerve root and similar mild left-sided foraminal encroachment without exiting nerve root compression. Mild left-sided central canal stenosis unchanged. Assessment & Plan Assessment & Plan (1) Lumbar spondylosis: Code(s): M47.816 - Spondylosis without myelopathy or radiculopathy, lumbar region (2) Lumbar degenerative disc disease: Code(s): M51.36 - Other intervertebral disc degeneration, lumbar region (3) Degenerative scoliosis: Code(s): M41.50 - Other secondary scoliosis, site unspecified (4) Lumbosacral spondylosis with radiculopathy: Code(s): M47.27 - Other spondylosis with radiculopathy, lumbosacral region (5) Spinal stenosis, lumbar region with neurogenic claudication: Code(s): M48.062 - Spinal stenosis, lumbar region with neurogenic claudication Plan Lumbar spine xrays and MRI results were reviewed with patient today. She was seen by our colleagues at [facility] with pending CT scan for lumbar spine. She requests this to be done urgently, I have reminded her that this was just placed by [facility] provider yesterday. We reviewed interventional treatments for her chronic low back and leg pain if she is deemed non-surgical after re-evaluation with CT scan. Informational pamphlets provided to patient on MILD, SCS trial and implant and BVN ablation. Expectations, risks and benefits were reviewed on each procedure in greater detail today. Patient is aware to call if pain worsens or if she develops any red flag symptoms to seek emergency care. Patient denies any cauda equina syndrome symptoms at this time. All questions and concerns have been answered and patient agreed with the plan. Follow up as needed. Orders: Orders CT lumbar spine wo IV con Today M41.50 - Other secondary scoliosis, site unspecified Coding Level of Care Code Est Pt Level 4 (16559) Diagnoses Lumbar spondylosis M47.816 Lumbar degenerative disc disease M51.36 Degenerative scoliosis M41.50 Lumbosacral spondylosis with radiculopathy M47.27 Spinal stenosis, lumbar region with neurogenic claudication M48.062
[2023-12-06 10:08] VITALS: BP 203/81; PULSE 79; O2SAT 99; BMI 27.5
[2023-12-06 10:09] VITALS: BP 161/70
== END 2023-12-06 10:40 | disposition home or self-care (01) ==
PROVIDERS: PCP Internal Medicine; Visit Provider Nurse Practitioner Family
DX: M47.816 Spondylosis without myelopathy or radiculopathy, lumbar region (principal); M51.36 Other intervertebral disc degeneration, lumbar region; M41.50 Other secondary scoliosis, site unspecified; M47.27 Other spondylosis with radiculopathy, lumbosacral region; M48.062 Spinal stenosis, lumbar region with neurogenic claudication
CPT/HCPCS: 99213

== ENCOUNTER → 2023-12-06 09:58 | Outpatient (BNVA) | payer OTHER, SELFPAY | PROVIDERS: PCP Internal Medicine; Visit Provider Nurse Practitioner Family | DX: M47.816 Spondylosis without myelopathy or radiculopathy, lumbar region (principal); M51.36 Other intervertebral disc degeneration, lumbar region; M41.50 Other secondary scoliosis, site unspecified; M47.27 Other spondylosis with radiculopathy, lumbosacral region; M48.062 Spinal stenosis, lumbar region with neurogenic claudication | CPT/HCPCS: 99212 ==

== ENCOUNTER 2023-12-17 09:00 | Outpatient (REF) | payer OTHER, SELFPAY ==
[2023-12-17 10:26] LABS: Estimated Average Glucose 117 mg/dL; Hemoglobin A1c % 5.7 % (<6.0)
[2023-12-17 10:51] LABS: Alanine Aminotransferase 18 U/L (0-31); Anion Gap 12 (12-20); Aspartate Amino Transferase 19 U/L (5-31); Blood Urea Nitrogen 16 mg/dL (9-16); Calcium 10.2 mg/dL (8.4-10.2); Carbon Dioxide 27 mmol/L (22-29); Chloride 105 mmol/L (96-108); Cholesterol 171 mg/dL (<200); Estimated Glomerular Filt Rate > 60; Glucose Fasting 124 mg/dL (60-99); HDL Cholesterol 67 mg/dL (>40); LDL Cholesterol Calculated 81 mg/dL (<100); Potassium 3.5 mmol/L (3.3-5.1); Sodium 140 mmol/L (135-145); Triglycerides 116 mg/dL (<150)
[2023-12-17 10:58] LABS: Free T4 (Free Thyroxine) 1.29 ng/dL (0.71-1.85); Thyroid Stimulating Hormone 0.14 uIU/mL (0.32-4.0)
== END 2023-12-17 09:01 | disposition home or self-care (01) ==
LOC: HO.HMGCLDS 09:00
PROVIDERS: PCP Internal Medicine; Visit Provider Internal Medicine
DX: E03.9 Hypothyroidism, unspecified (principal); I25.10 Atherosclerotic heart disease of native coronary artery without angina pectoris; I10 Essential (primary) hypertension; J44.9 Chronic obstructive pulmonary disease, unspecified; E11.9 Type 2 diabetes mellitus without complications
CPT/HCPCS: 36415; 80048; 80061; 82306; 83036; 84439; 84443; 84450; 84460

== ENCOUNTER 2023-12-18 10:40 | Outpatient (AMB) | payer OTHER, SELFPAY ==
[2023-12-18 10:50] VITALS: BP 158/68; PULSE 74; O2SAT 96; BMI 27.8
--- NOTE | 2023-12-18 10:50 | MHC.PC.OV ---
Vital Signs 12/18/23 10:50 Height 5 ft 5 in Weight 167 lb BMI 27.8 BP 158/68 H Blood Pressure Location Lt brachial Position Sitting Pulse 74 Pulse Source Pulse Oximeter Pulse Oximetry (%) 96 Oxygen Delivery Method Room Air Intake Visit Reasons: 6 m follow up Intake Note: Pt is here today for her 6mo. f/u Allergies amoxicillin [Augmentin] Adverse Reaction (Unknown, Verified 12/18/23 11:21) N/V high dose influenza Adverse Reaction (Uncoded 12/18/23 11:21) Hives Medication List - Last Reconciled 12/18/23 by Loretta Sanchez MD albuterol sulfate 2.5 mg (3 mL) inhalation Q4-6H PRN albuterol sulfate 90 mcg/actuation (ProAir HFA) 0 mcg inhalation aspirin 81 mg PO DAILY atorvastatin 10 mg PO DAILY [id number] mg tabs PO cholecalciferol (vitamin D3) 25 mcg PO DAILY citalopram 40 mg PO DAILY docusate sodium 100 mg PO DAILY hydrochlorothiazide 25 mg PO DAILY levothyroxine 137 mcg PO DAILY lisinopril 20 mg PO DAILY multivitamin 1 tab PO DAILY omeprazole 20 mg PO DAILY tramadol 100 mg (2 x 50 mg) PO BID PRN trazodone 100 mg PO BEDTIME PRN Tobacco use date assessed: 12/18/23 Fall risk assessment: 1 Fall in past year Last assessed Fall Risk: 12/18/23 Dental Screening Dental Screen Date: 12/18/23 Did you have a dental visit in the last 12 months?: No Was dental information given to patient?: Patient has dentist HPI 6 m follow up HPI Details 78-year-old lady with hyperlipidemia, type 2 diabetes mellitus controlled by diet, has acquired hypothyroidism, hypertension, COPD, and history of depression, here today for her six-month follow-up. She has been feeling well, no complaints at present time. Blood pressure however is not at goal. Denies any headaches, no chest pain, shortness of breath, palpitations or her lightheadedness. Has been compliant taking her medications, but admits to not getting any regular exercise. [facility] Medical History Trochanteric bursitis, right hip Chronic insomnia Hx of myocardial infarction Myocardial infarct Major depression in full remission Type 2 diabetes mellitus without complication, without long-term current use of insulin Essential hypertension Acquired hypothyroidism CAD (coronary artery disease) COPD (chronic obstructive pulmonary disease) Surgical History Hx of colonoscopy History of heart artery stent History of total hysterectomy Family History Father Parkinson disease Scoliosis Cancer Mother Colon cancer Maternal Grandmother No problems noted. Maternal Grandfather No problems noted. Paternal Grandmother Lung cancer Paternal Grandfather Alcoholism Diabetes mellitus Social History Housing: House Alcohol intake: current Alcohol intake frequency: a few times a week Patient Tobacco Use Status: Current everyday Tobacco user Tobacco use type: Cigarette and Smokeless Tobacco Years Smoked: 14 e-Cigarette/Vaping Use: Currently Using service: No Current occupational status: retired Cognitive needs: No Hearing needs: No Vision needs: Yes Questionnaire PHQ-9 Over the last 2 weeks, how often have you been bothered by any of the following problems? 1. Little interest or pleasure in doing things: not at all 2. Feeling down, depressed, or hopeless: not at all 3. Trouble falling or staying asleep, or sleeping too much: not at all 4. Feeling tired or having little energy: not at all 5. Poor appetite or overeating: not at all 6. Feeling bad about yourself - or that you are a failure or have let yourself or your family down: not at all 7. Trouble concentrating on things, such as reading the newspaper or watching television: not at all 8. Moving or speaking so slowly that other people could have noticed. Or the opposite - being so fidgety or restless that you have been moving around a lot more than usual: not at all 9. Thoughts that you would be better off or of hurting yourself in some way: not at all Total score: 0 Depression Screening Interpretation: Negative (Depression controlled with citalopram) Depression Screening Done: Yes Source: Developed by Drs. Otf L. Soraya Mandujano Kurt Kroenke and colleagues, with an educational kenan from [employer]. Thrive Questionnaire Date Thrive assessed: 12/18/23 I am a: Patient What is your living situation today?: I have a steady place to live Within the past 12 months, did the food you bought not last and you didn't have the money to get more?: Never true Within the past 12 months, did you worry whether your food would run out before you got money to buy more?: Never true Do you have trouble paying for medicines?: No Do you have trouble getting transportation to medical appointments?: No Do you have trouble paying your heating and electricity bill?: No Do you have trouble taking care of your child, family member or friend?: No Do you have trouble with day-to-day activities such as bathing, preparing meals, shopping, managing finances, etc.?: No Are you currently unemployed and looking for a job?: No Are you interested in more education?: No THRIVE Score: 0 AUDIT C Alcohol Use Questionnaire (AUDIT-C) 1. How often do you have a drink containing alcohol?: Never Total Score: 0 NADIA-7 AMB Questionnaire NADIA-7 Date NADIA - 7 assessed: 12/18/23 Feeling nervous, anxious, or on edge: 0 = Not at all Not being able to stop or control worryin = Not at all Worrying too much about different things: 0 = Not at all Trouble relaxin = Not at all Being so restless that it is hard to sit still: 0 = Not at all Becoming easily annoyed or irritable: 0 = Not at all Feeling afraid as if something awful might happen: 0 = Not at all Total NADIA-7 score (0-4 normal; 5-9 mild; 10-14 moderate; 15-21 severe): 0 Source: Developed by Soraya Haynes Kurt Kroenke and colleagues, with an educational kenan from [employer]. NADIA-7 Assessment Billing NADIA-7 Assessment Tool: NADIA-7 Assessment 04175 Physical exam (Primary Care) Vital Signs: Last Vital Signs Pulse 74 12/18/23 10:50 BP 158/68 H 12/18/23 10:50 Pulse Ox 96 12/18/23 10:50 Oxygen Delivery Method Room Air 12/18/23 10:50 BMI result Body Mass Index 27.8 Tobacco/Smoking Status: Tobacco use Status Tobacco use date assessed 12/18/23 12/18/23 11:06 Patient Tobacco Use Status Current everyday Tobacco 12/18/23 10:50 Tobacco use type Cigarette,Smokeless Tobacco 12/18/23 10:50 e-Cigarette/Vaping Use Currently Using 12/18/23 10:50 PHQ-9: PHQ-9 Score PHQ-9: Total score 0 12/18/23 11:37 Depression Screening Interpretation: Negative (Depression controlled with citalopram) Thrive Assessment: Date of Thrive Assessment Date Thrive assessed 12/18/23 12/18/23 11:11 Results Reviewed Results Reviewed: Name: Estrella De La Torre Age/Sex: 78/F : 1945 Unit#: [id number] Attend Dr: Loretta Sanchez MD Re12/17/23 Status: DEP [facility]: SPEC : [id number] YASH: 12/17/23 STATUS: COMP REQ : [id number] RECD: 12/17/23-[address]: Loretta Sanchez MD COMP: 12/17/23 ENTERED: 12/17/23-904 [facility] DR: ORDERED: Met Prof Fast, AST, ALT, Lipid Panel, Vitamin D 25-OH, Free T4, TSH Test Result Flag Reference Sodium 140 135-145 mmol/L Potassium 3.5 3.3-5.1 mmol/L CL 105 96-108 mmol/L CO2 27 22-29 mmol/L Gap 12 12-20 BUN 16 9-16 mg/dL Creat 0.79 0.5-1.4 mg/dL EGFR > 60 NOTE: For -[place] individuals, multiply the result by 1.210. Chronic Kidney Disease: Estimated GFR < 60 mL/min/1.73m2 Severe Kidney Disease: Estimated GFR < 15 mL/min/1.73m2 FBS 124 H 60-99 mg/dL A fasting glucose from 100-125 mg/dl is considered impaired (pre-diabetes). CA 10.2 8.4-10.2 mg/dL AST (GOT) 19 5-31 U/L ALT (GPT) 18 0-31 U/L Triglyceride 116 <150 mg/dL Desirable Triglyceride: less than 150 mg/dL Borderline High Triglyceride 150-199 mg/dL High Triglyceride: 200-499 mg/dL Very High Triglyceride: greater than or equal to 5OO mg/dL Cholesterol 171 <200 mg/dL Desirable Cholesterol: less than 200 mg/dL Borderline High Cholesterol: 200-239 mg/dL High Cholesterol: greater than 239 mg/dL LDL Calculated 81 <100 mg/dL Desirable LDL: less than 100 mg/dL Near Optimal/Above Optimal LDL: 110-129 mg/dL Borderline High LDL: 130-159 mg/dL High LDL: 160-189 mg/dL Very High LDL: greater than or equal to 190 mg/dL HDL 67 >40 mg/dL Desirable HDL: greater than 40 mg/dL Note: This HDL assay may give artificially low results in patients with liver disease. Vit D 25-OH Tot 57.0 >30 ng/mL Health Based Reference Values* < 20 ng/mL Deficient 20-30 ng/mL Insufficient > 30 ng/mL Sufficient *Stacia PARKER. N Engl J Med. 2007;357:266-280 Care must be taken in interpreting Vitamin D results from different laboratories and methodologies. Published data demonstrated that results from patients undergoing hemodialysis may show a negative bias when tested with various automated 25-OH vitamin D assays when compared to LC-MS/MS. When testing samples from patients whose predominant form of Vitamin D is Vitamin D2, such as patients receiving Vitamin D2 supplementation, results that are subtherapeutic should be confirmed with another method such as LC-MS/MS. Free T4 1.29 0.71-1.85 ng/dL TSH 3rd Gen. 0.14 L 0.32-4.0 uIU/mL TSH 3rd Generation ([facility]) Laboratory Tests 12/17/23 09:05 Estimat Average Glucose 117 Hemoglobin A1c % 5.7 Assessment and Plan Assessment & Plan (1) Type 2 diabetes mellitus without complication, without long-term current use of insulin: Code(s): E11.9 - Type 2 diabetes mellitus without complications Plan: Diabetes mellitus stable and controlled on diet and exercise, latest hemoglobin A1c is at 5.7 % (2) Essential hypertension: Code(s): I10 - Essential (primary) hypertension Plan: Blood pressure not at goal of less than 130/80. . Reinforced importance of following a low sodium diet, getting regular exercise, and lowering stress levels. Continued on lisinopril-HCTZ 20-25 mg 1 tablet daily, scheduled to see nurse in a week to check blood pressure (3) Acquired hypothyroidism: Code(s): E03.9 - Hypothyroidism, unspecified Plan: Thyroid levels are within normal limits, continue with current dose of levothyroxine 137 mcg once a day in a.m. an hour before breakfast (4) CAD (coronary artery disease): Code(s): I25.10 - Atherosclerotic heart disease of [place] coronary artery without angina pectoris Qualifiers: Associated angina: without angina Coronary Disease-Associated Artery/Lesion type: [place] artery [place] vs. transplanted heart: [place] heart Qualified Code(s): I25.10 - Atherosclerotic heart disease of [place] coronary artery without angina pectoris Plan: Continue aspirin 81 mg daily atorvastatin 10 mg daily (5) Major depression in full remission: Code(s): F32.5 - Major depressive disorder, single episode, in full remission Qualifiers: Major depression recurrence: recurrent Qualified Code(s): F33.42 - Major depressive disorder, recurrent, in full remission Plan: Depression controlled with citalopram 40 mg daily and takes trazodone as needed for insomnia Medications: New lisinopril-hydrochlorothiazide 20-25 mg 1 tab PO DAILY 90 tabs 1RF Refilled trazodone 100 mg PO BEDTIME PRN 90 tabs 0RF insomnia Discontinued lisinopril Discontinued Reason: Duplicate 20 mg PO DAILY 90 tabs 1RF hydrochlorothiazide Discontinued Reason: Duplicate 25 mg PO DAILY 90 tabs 1RF I10 - Essential (primary) hypertension Coding Level of Care Code Est Pt Level 4 (53826) Diagnoses Type 2 diabetes mellitus without complication, without long-term current use of insulin E11.9 Essential hypertension I10 Acquired hypothyroidism E03.9 Coronary artery disease involving [place] coronary artery of [place] heart without angina pectoris I25.10 Associated angina: without angina Coronary Disease-Associated Artery/Lesion type: [place] artery [place] vs. transplanted heart: [place] heart Recurrent major depressive disorder, in full remission F33.42 Major depression recurrence: recurrent Additional Codes NADIA-7 Assessment Billing - NADIA-7 Assessment Tool: NADIA-7 Assessment 44814 ([id number])
== END 2023-12-18 11:39 | disposition home or self-care (01) ==
PROVIDERS: PCP Internal Medicine; Visit Provider Internal Medicine
DX: E11.9 Type 2 diabetes mellitus without complications (principal); F33.42 Major depressive disorder, recurrent, in full remission; I10 Essential (primary) hypertension; E03.9 Hypothyroidism, unspecified; I25.10 Atherosclerotic heart disease of native coronary artery without angina pectoris
CPT/HCPCS: 99214

== ENCOUNTER 2024-01-01 10:07 | Outpatient (AMB) | payer OTHER, SELFPAY ==
--- NOTE | 2024-01-01 10:08 | MHC.OFFVIS ---
Intake Vital Signs 01/01/24 10:14 Height 5 ft 5 in Weight 165 lb 12.602 oz BMI 27.6 BP 124/70 Blood Pressure Location Rt brachial Position Sitting Pulse 85 Pulse Source Pulse Oximeter Oxygen Delivery Method Room Air Intake Visit Reasons: OA on tramadol with dot compliance specialist Intake Note: Patient last seen 09/28/23, presents today for follow up. Strapping Machine Tender Required: No Accompanied by: Self / Same As Patient Allergies amoxicillin [Augmentin] Adverse Reaction (Unknown, Verified 01/01/24 10:09) N/V high dose influenza Adverse Reaction (Uncoded 01/01/24 10:09) Hives HPI HPI Comments History of Present Illness Details Mrs. De La Rosa is a 78 year old female usually seen in the office for Lumbar arthritis. She is here today due to increase pain to her right trochanteric bursitis that started to return in the last week. She says the injection at last visit (September 28) was effective. It has been on for about a week and the tramadol has not been effective for this pain per patient. She denies doing exercises for the area. 09/28/2022: Marina: Mrs. De La Rosa is a 78 year old female usually seen in the office for Lumbar artheritis. She is here today for an urgent visit due to increase pain to her right hip that affects sleep and movement. It has been on for about a week and the tramadol has not been effective for this pain per patient. The pain in the lower back sometimes radiates down to the right leg but this feels different and tender per patient. She denies impact or injury to the hip and leg. She does take tincture of THC at nighttime for sleep. She says the THC helps her sleep but does not cause her significant daytime sedation. [facility] Medical History Trochanteric bursitis, right hip Chronic insomnia Hx of myocardial infarction Myocardial infarct Major depression in full remission Type 2 diabetes mellitus without complication, without long-term current use of insulin Essential hypertension Acquired hypothyroidism CAD (coronary artery disease) COPD (chronic obstructive pulmonary disease) Surgical History Hx of colonoscopy History of heart artery stent History of total hysterectomy Family History Father Parkinson disease Scoliosis Cancer Mother Colon cancer Maternal Grandmother No problems noted. Maternal Grandfather No problems noted. Paternal Grandmother Lung cancer Paternal Grandfather Alcoholism Diabetes mellitus Social History (Updated 01/01/24 @ 10:15 by LYDIA Nolan) Housing: House Alcohol intake: current Alcohol intake frequency: a few times a week Patient Tobacco Use Status: Former Tobacco user Tobacco use type: Smokeless Tobacco Years Smoked: 14 e-Cigarette/Vaping Use: Currently Using service: No Current occupational status: retired Cognitive needs: No Hearing needs: No Vision needs: Yes Review of Systems Const All systems reviewed & are unremarkable except as noted in HPI and below Physical Exam Vital Signs: Last Vital Signs Pulse 85 01/01/24 10:14 BP 124/70 01/01/24 10:14 Oxygen Delivery Method Room Air 01/01/24 10:14 BMI result Body Mass Index 27.6 APPEARANCE: Patient in no acute distress, groomed, nourished, slow sitting and rising due to right trochanteric pain EXTREMITIES: No edema, no calf tenderness, normal peripheral pulses. Lumbar Spine: Scoliosisl.? Some limitation of flexion with mild pain at 75 degrees. No tenderness. Shoulders:? Full range of motion without pain. No tenderness, weakness, swelling, increased warmth or erythema. Hips:? decrease range of motion wit pain on right. No tenderness to glutes. Right side muscle fatigue to lower flank likely due to scoliosis Hip bursa: Right severe tenderness. ? Office Procedures Joint Injection/Drain Joint Injection/Drain Details: RT Trochanteric Bursa injected with Kenalog 60 mg and 1%Lidocaine 2 ml. Patient tolerated procedure. Primary Site: other (Right Trochanteric Burisitis) Prep: site was prepped using aseptic technique Injected: 60 mg of, Kenalog and 1% plain lidocaine Approach Used: posterolateral Procedure: The patient tolerated the procedure well Coding 19276 - Glenohumeral/Tronchanteric Bursa/Intraarticular Procedure code (CPT) selection complete Assessment & Plan Assessment & Plan (1) Trochanteric bursitis, right hip: Code(s): M70.61 - Trochanteric bursitis, right hip Plan #Right Trochanteric Bursitis: Timo De La Rosa is a 78 yo F who presents to the office for hip tenderness to the right side. return of tenderness on palpation to area, pain increases with sitting and walking. I will give her a corticosteroid injection to the right hip bursa. Again, I gave patient a print out of exercises to do at home. She knows to take it easy with the leg for the next few days. I reminded patient that the exercises can be helpful and also massaging the area with topical such as the voltaren without waiting for the full ROS. We discussed the possible side effects of recurrent costicosteorid injections. I encouraged her to let's push for at least 4 months for the next injection if needed. She knows to call the office when ready. I spent 20 minutes reviewing chart, evaluating patient and documenting. f/u 6 months Orders: Orders AMB Joint Injection/Aspiration Today M70.61 - Trochanteric bursitis, right hip Coding Level of Care Code Est Pt Level 2 (33049) Diagnoses Trochanteric bursitis, right hip M70.61 CPT Codes Coding - Joint 7: 68977 - Glenohumeral/Tronchanteric Bursa/Intraarticular ([id number])
[2024-01-01 10:14] VITALS: BP 124/70; PULSE 85; BMI 27.6
== END 2024-01-01 10:38 | disposition home or self-care (01) ==
PROVIDERS: PCP Internal Medicine; Visit Provider Nurse Practitioner Family
DX: M70.61 Trochanteric bursitis, right hip (principal)
CPT/HCPCS: 20610; 99213

== ENCOUNTER → 2024-01-01 10:07 | Outpatient (BNVA) | payer OTHER, SELFPAY | PROVIDERS: PCP Internal Medicine; Visit Provider Nurse Practitioner Family | DX: M70.61 Trochanteric bursitis, right hip (principal); Z79.891 Long term (current) use of opiate analgesic | CPT/HCPCS: 20610; 99212 ==

== ENCOUNTER 2024-01-18 12:42 | Outpatient (REF) | payer OTHER, SELFPAY ==
--- NOTE | ~2024-01-18 | CT_ITS ---
EXAMINATION: CT LUMBAR SPINE WITHOUT CONTRAST CLINICAL INFORMATION: Scoliosis. Pain. COMPARISON: MRI from 11/20/2023. TECHNIQUE: Multidetector helical imaging acquired in the axial plane with generation of reformatted acquisitions. This CT examination was performed using dose optimization techniques as appropriate, variously including the following: *Automated exposure control *Adjustment of mA and/or kV according to patient size (this includes techniques or standardized protocols for targeted exams where dose is matched to indication/reason for exam; i.e. extremities or head) *Use of iterative reconstruction technique DLP; 580 mGy-cm. FINDINGS: As seen on the MRI study, there is a significant rightward convex curvature of the lumbar spine with the apex of curvature centered at the L2 level. Bulky multilevel endplate osteophyte formation noted, more so laterally on the left side at the L1, L2, and L3 levels. There is a lateral subluxation of L3 relative to L4 as well. Bulky right lateral endplate spurring evident from the L4 to the sacral levels with vacuum disc phenomenon. No compression fractures are seen. L1-L2: Slight posterior subluxation and disc bulge with mild facet arthropathy. No central canal stenosis or significant foraminal narrowing. L2-L3: Asymmetric significant left-sided disc space narrowing with endplate spurring. Diffuse disc bulge present with mild encroachment upon the left subarticular zone. Mild facet arthropathy. No significant central canal stenosis or foraminal narrowing. L3-L4: Diffuse disc bulge and moderate facet arthropathy with thickening of the ligamentum flavum resulting in severe central canal stenosis and thecal sac compression, as on MR imaging, with severe left foraminal narrowing from ossific spurring. Mild right foraminal narrowing. Lateral subluxation of L3 relative to L4 as well. L4-L5: Significant bulky right lateral endplate spurring and disc bulge with facet arthropathy. Mild central canal stenosis and [id number] right foraminal narrowing. L5-S1: Anterolisthesis and advanced facet arthropathy with moderate central canal stenosis. Unroofed mild disc bulge. Facet spurring encroaches upon the right lateral recess contacting the right S1 nerve root. Severe right foraminal narrowing and distortion of the exiting right L5 nerve root. The paraspinal soft tissues appear normal. There are moderate atherosclerotic wall calcifications in the infrarenal abdominal aorta and iliac vessels. Ldje-ck-apgymyln degenerative changes and vacuum phenomenon affect the sacroiliac joints bilaterally. A few scattered sigmoid colonic diverticula are incidentally visualized. The imaged portions of the lungs are relatively clear. CT/CT lumbar spine wo IV con IMPRESSION: Stable extensive multilevel lumbar spondylosis with severe central canal stenosis at the L3-L4 level. Significant left foraminal narrowing as well, with a lateral subluxation at this level. Severe rightward lumbar spinal curvature. No compression fractures. Anterolisthesis and advanced facet degeneration at L5 on S1 with moderate central canal stenosis. Bony spurring encroaching upon the right lateral recess and mildly impressing upon the right S1 nerve root. Severe right foraminal narrowing and distortion of the right L5 nerve root.
== END 2024-01-18 12:43 | disposition home or self-care (01) ==
LOC: HO.CT 12:42
PROVIDERS: PCP Internal Medicine; Visit Provider Nurse Practitioner Family
DX: M54.50 Low back pain, unspecified (principal); M41.56 Other secondary scoliosis, lumbar region
CPT/HCPCS: 72132

== ENCOUNTER → 2024-01-25 14:14 | Outpatient (BNVA) | payer OTHER, SELFPAY | PROVIDERS: PCP Internal Medicine; Visit Provider Neurological Surgery | DX: M54.9 Dorsalgia, unspecified (principal); M41.56 Other secondary scoliosis, lumbar region | CPT/HCPCS: 99212 ==

== ENCOUNTER 2024-02-28 11:03 | Outpatient (AMB) | payer OTHER, SELFPAY ==
[2024-02-28 11:10] VITALS: BP 172/73; PULSE 77; O2SAT 98; BMI 27.5
--- NOTE | 2024-02-28 11:10 | MHC.OFFVIS ---
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 imaging as per below. Continues to endorse midline lower back pain worse with walking. Pain improves with rest. 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 Patient continues to endorse significant low back pain with right sided radiculopathy with neurogenic claudication due to severe spinal stenosis and degenerative scoliosis. She was also sent for Neurosurgical evaluation and was seen by [facility] team on 11/30/23 and 12/05/23 with discussion for possibility of a scoliosis correction surgery and the possibility of lumbar decompression at multiple levels after re-evaluation with CT scan. Patient reports that CT scan was not scheduled yet and is concerned for this. Patient reports she her back pain increases to 8/10 after walking for <5-7 min or standing <5 min. She recently received walker with seat and has been taking frequent breaks during her walking or standing. Patient denies any increase in back pain during sitting but can only tolerate sitting for about 20 min. She continues to utilize tramadol, Tylenol, NSAIDs, heat therapy and THC tincture for her chronic pain. Denies any recent cough, cold, infection, fever, any significant changes in her medical history, medications or recent hospitalizations. [facility] notes, DK Rodriguez 12/05/23: The patient's case was reviewed with Dr. Hogan she is going to be sent for a CT scan of lumbar spine and that will be scheduled to see Dr. Hogan again after this. The CT scan will be to evaluate for L2-3 fusion. If she is fused at this level at allow for scoliosis correction under this segment. PRIOR: Patient is a pleasant 78 years old female with prior history of lumbar spondylosis with myelopathy and lumbar spinal stenosis, presents today for initial evaluation of chronic low back pain with left sided radiculopathy. Reports frequent tripping over her pets or while walking and has been frequently loosing her balance. She uses cane with ambulation and awaits for walker with seat. Denies any past or recent trauma or injury. Back pain is axial and also radiates into her left lateral and anterior thigh with intermittent numbness and tingling in her left davies. Reports chronic cramping and tingling in her ankles and toes. Patient reports recent corticosteroid injection to her right trochanteric bursa with good result. She also takes tramadol 100 mg BID and tincture of THC at nighttime for sleep and pain. Pain affects her daily activities, functioning, sleep, social interactions and quality of life. Denies any fever, abdominal or groin pain, bladder or bowel dysfunction or saddle anesthesia. Previous lumbar spine MRI showed advanced multilevel lumbar spondylosis is accentuated by the patient's rotatory dextroscoliosis and is worst at L3-L4, where degenerative changes lead to moderate to severe canal stenosis and significant apparent mass effect on the traversing left L4 nerve root. Patient denies previous spine surgery or injections. Reports she was told she was non-surgical candidate by her previous provider. Patient is interested in interventional treatments to address her axial and radicular pain symptoms. Location Lower back pain radiating to her lower extremities Duration Chronic pain for >7 years, fell on ice 2 vertebrae went into my tailbone Characteristics of symptom or complaint Aching, radiating, numbness, tingling, sharp, stabbing, burning Aggravating or associated factors Walking, prolonged standing, movements, cold weather Relieving factors Sitting, heat therapy, tramadol, THC tincture (sleep/pain), Tylenol, NSAIDs Treatment Right GTB cortisone injection 09/2023, PT in past [facility] Medical History Trochanteric bursitis, right hip Chronic insomnia Hx of myocardial infarction Myocardial infarct Major depression in full remission Type 2 diabetes mellitus without complication, without long-term current use of insulin Essential hypertension Acquired hypothyroidism CAD (coronary artery disease) COPD (chronic obstructive pulmonary disease) Surgical History Hx of colonoscopy History of heart artery stent History of total hysterectomy Family History Father Parkinson disease Scoliosis Cancer Mother Colon cancer Maternal Grandmother No problems noted. Maternal Grandfather No problems noted. Paternal Grandmother Lung cancer Paternal Grandfather Alcoholism Diabetes mellitus Social History (Updated 01/01/24 @ 10:15 by LYDIA Nolan) Housing: House Alcohol intake: current Alcohol intake frequency: a few times a week Patient Tobacco Use Status: Former Tobacco user Tobacco use type: Smokeless Tobacco Years Smoked: 14 e-Cigarette/Vaping Use: Currently Using service: No Current occupational status: retired Cognitive needs: No Hearing needs: No Vision needs: Yes Review of Systems Const All systems reviewed & are unremarkable except as noted in HPI and below Physical Exam Vital Signs: Last Vital Signs Pulse 77 02/28/24 11:10 BP 172/73 H 02/28/24 11:10 Pulse Ox 98 02/28/24 11:10 Oxygen Delivery Method Room Air 02/28/24 11:10 BMI result Body Mass Index 27.5 General: awake, alert, oriented. Answers questions appropriately. Fully engaged in examination. Skin: warm, dry, intact HEENT: Normocephalic. Hearing intact. Cardiac: External chest normal in appearance. Respiratory: No cough, audible wheezing or stridor. Abdomen: without gross distension. MS: Scoliosis Able to transition from sit to stand unassisted. Ambulates with bilaterally normal heel strike and toe off SLR neg bilaterally Flexion to 70 degrees, extension to 10 degrees without pain increase non tender bilateral PSIS non tender midline lumbar vertebrae or paraspinal muscles facet loading neg valsalva negative Neurological: Oriented to person, place, time and situation. Thought process intact. Psychiatric: Appropriate mood and affect. Good judgment and insight. Results Reviewed Results Reviewed: 01/18/2024 CT/CT lumbar spine wo IV con FINDINGS: As seen on the MRI study, there is a significant rightward convex curvature of the lumbar spine with the apex of curvature centered at the L2 level. Bulky multilevel endplate osteophyte formation noted, more so laterally on the left side at the L1, L2, and L3 levels. There is a lateral subluxation of L3 relative to L4 as well. Bulky right lateral endplate spurring evident from the L4 to the sacral levels with vacuum disc phenomenon. No compression fractures are seen. L1-L2: Slight posterior subluxation and disc bulge with mild facet arthropathy. No central canal stenosis or significant foraminal narrowing. L2-L3: Asymmetric significant left-sided disc space narrowing with endplate spurring. Diffuse disc bulge present with mild encroachment upon the left subarticular zone. Mild facet arthropathy. No significant central canal stenosis or foraminal narrowing. L3-L4: Diffuse disc bulge and moderate facet arthropathy with thickening of the ligamentum flavum resulting in severe central canal stenosis and thecal sac compression, as on MR imaging, with severe left foraminal narrowing from ossific spurring. Mild right foraminal narrowing. Lateral subluxation of L3 relative to L4 as well. L4-L5: Significant bulky right lateral endplate spurring and disc bulge with facet arthropathy. Mild central canal stenosis and [id number] right foraminal narrowing. L5-S1: Anterolisthesis and advanced facet arthropathy with moderate central canal stenosis. Unroofed mild disc bulge. Facet spurring encroaches upon the right lateral recess contacting the right S1 nerve root. Severe right foraminal narrowing and distortion of the exiting right L5 nerve root. The paraspinal soft tissues appear normal. There are moderate atherosclerotic wall calcifications in the infrarenal abdominal aorta and iliac vessels. [id number] degenerative changes and vacuum phenomenon affect the sacroiliac joints bilaterally. A few scattered sigmoid colonic diverticula are incidentally visualized. The imaged portions of the lungs are relatively clear. IMPRESSION: Stable extensive multilevel lumbar spondylosis with severe central canal stenosis at the L3-L4 level. Significant left foraminal narrowing as well, with a lateral subluxation at this level. Severe rightward lumbar spinal curvature. No compression fractures. Anterolisthesis and advanced facet degeneration at L5 on S1 with moderate central canal stenosis. Bony spurring encroaching upon the right lateral recess and mildly impressing upon the right S1 nerve root. Severe right foraminal narrowing and distortion of the right L5 nerve root. XR LUMBOSACRAL SPINE WITH OBLIQUES 11/30/23 CLINICAL INFORMATION: Back pain. Spinal stenosis without neurogenic claudication. COMPARISON: MRI lumbar spine of 11/20/2023. TECHNIQUE: AP, lateral neutral, flexion and extension views of the lumbar spine. FINDINGS: Bones are diffusely demineralized. Atherosclerotic aortic calcifications. Severe rightward curvature of the lumbar spine with notable grade 1 lateral listhesis of L3 on L4. Degenerative changes with loss of disc space height and hypertrophic change at L1-L2 and L2-L3. The L4-L5 and L5-S1 disc spaces are not well visualized, suggesting possible fusion, and correlation with surgical history recommended. Advanced facet arthritis in the mid to lower lumbar spine IMPRESSION: 1. Severe degenerative disc disease at L1-L2 and L2-L3. 2. L4-L5 and L5-S1 disc spaces are not well visualized, suggesting possible fusion, and correlation with surgical history recommended. MR LUMBAR SPINE WITHOUT CONTRAST 11/20/23 FINDINGS: There are 5 nonrib-bearing lumbar-type vertebral bodies. Severe rightward convex scoliotic curvature of the lumbar spine associated with grade 1 right lateral listhesis of L3 on L4, progressed when compared to the previous study. Grade 1 degenerative anterolisthesis of L5 on S1. Moderate to severe disc volume loss at the L2-L3, L3-L4, L4-L5, and L5-S1 levels, all progressed. Modic type I endplate signal changes at L2-L3 and L3-L4. No additional bone marrow edema. No acute fractures. Chronic endplate Schmorl's nodes at all lumbar levels. Multilevel endplate osteophytes. Conus terminates at the T12-L1 level. Bilateral parapelvic cysts. Right foraminal perineural cyst at T10-T11. L1-L2: Left lateral disc osteophyte results in mild left-sided foraminal encroachment. No central canal and no right foraminal stenosis. L2-L3: Left paracentral/left lateral disc osteophyte protrusion results in similar left subarticular zone stenosis with mass effect on the traversing left L3 nerve root and similar mild left-sided foraminal encroachment without exiting nerve root compression. Mild left-sided central canal stenosis unchanged. L3-L4: Diffuse disc osteophyte complex and severe left greater then right facet arthropathy and ligamentum flavum thickening. Findings in concert result in similar appearing moderate to severe central canal stenosis, right greater than left subarticular zone stenosis with mass effect on the traversing right L4 nerve root, and moderate left-sided foraminal stenosis with mass effect on the exiting left L3 nerve root. L4-L5: Right paracentral/right lateral disc osteophyte protrusion results in similar compression of the extraforaminal right L4 nerve root and similar right subarticular zone stenosis with mild mass effect on the traversing right L5 nerve root within the right subarticular zone. No central canal and no left foraminal stenosis.. L5-S1: Grade 1 degenerative anterolisthesis. Diffuse disc osteophyte and severe bilateral facet arthropathy and ligamentum flavum thickening. Findings in concert result in similar moderate to severe central canal stenosis, severe right subarticular zone stenosis with compression of the traversing right S1 nerve root, and moderate to severe right foraminal stenosis with compression of the exiting right L5 nerve root. IMPRESSION: * Progressive severe rightward convex scoliotic curvature of the lumbar spine superimposed on advanced multilevel degenerative disc disease and hypertrophic facet arthropathy: * At L5-S1, grade 1 degenerative anterolisthesis and advanced multifactorial degenerative changes result in similar moderate to severe central canal stenosis, severe right subarticular zone stenosis with compression of the traversing right S1 nerve root, and moderate to severe right foraminal stenosis with compression of the exiting right L5 nerve root. * At L4-L5, a right paracentral/right lateral disc osteophyte protrusion results in similar compression of the extraforaminal right L4 nerve root and similar right subarticular zone stenosis with mild mass effect on the traversing right L5 nerve root within the right subarticular zone. * At L3-L4, advanced multifactorial degenerative changes result in similar appearing moderate to severe central canal stenosis, right greater than left subarticular zone stenosis with mass effect on the traversing right L4 nerve root, and moderate left-sided foraminal stenosis with mass effect on the exiting left L3 nerve root. * At L2-L3, a left paracentral/left lateral disc osteophyte protrusion results in similar left subarticular zone stenosis with mass effect on the traversing left L3 nerve root and similar mild left-sided foraminal encroachment without exiting nerve root compression. Mild left-sided central canal stenosis unchanged. Assessment & Plan Assessment & Plan (1) Lumbar spondylosis: Code(s): M47.816 - Spondylosis without myelopathy or radiculopathy, lumbar region Category: Medical (2) Lumbar degenerative disc disease: Code(s): M51.36 - Other intervertebral disc degeneration, lumbar region Category: Medical (3) Degenerative scoliosis: Code(s): M41.50 - Other secondary scoliosis, site unspecified Category: Medical (4) Lumbosacral spondylosis with radiculopathy: Code(s): M47.27 - Other spondylosis with radiculopathy, lumbosacral region Category: Medical (5) Spinal stenosis, lumbar region with neurogenic claudication: Code(s): M48.062 - Spinal stenosis, lumbar region with neurogenic claudication Category: Medical Plan Estrella is a very pleasant 78-year-old female who presented to the office today for follow-up, interventional management procedure discussion Recent MRI, CT scan and multiple provider visit notes were reviewed and discussed with patient during the visit today Discussed at length diagnosis and options for treatment with the patient including diagnostic testing, epidural steroid injections, minimally invasive lumbar decompression surgery and more permanent neuromodulation with spinal cord stimulation. Patient has exhausted conservative therapy including greater than 6 months of physical therapy, NSAIDs, heat, ice, topical medications, prescription medications and medicinal patches all without improvement of her pain. Will schedule patient for fluoroscopy guided caudal KAYLIE with catheter with local anesthetic. All questions and concerns were answered, patient agrees with the plan. Follow up after procedure, sooner if needed Patient was advised on red flag symptoms and when to seek treatment in the emergency room Coding Level of Care Code Est Pt Level 3 (44171) Diagnoses Lumbar spondylosis M47.816 Lumbar degenerative disc disease M51.36 Degenerative scoliosis M41.50 Lumbosacral spondylosis with radiculopathy M47.27 Spinal stenosis, lumbar region with neurogenic claudication M48.062
== END 2024-02-28 11:44 | disposition home or self-care (01) ==
PROVIDERS: PCP Internal Medicine; Referring Provider Internal Medicine; Visit Provider Registered Nurse Emergency
DX: M47.816 Spondylosis without myelopathy or radiculopathy, lumbar region (principal); M51.36 Other intervertebral disc degeneration, lumbar region; M41.50 Other secondary scoliosis, site unspecified; M47.27 Other spondylosis with radiculopathy, lumbosacral region; M48.062 Spinal stenosis, lumbar region with neurogenic claudication
CPT/HCPCS: 99213

== ENCOUNTER → 2024-02-28 11:03 | Outpatient (BNVA) | payer OTHER, SELFPAY | PROVIDERS: PCP Internal Medicine; Visit Provider Registered Nurse Emergency | DX: M47.816 Spondylosis without myelopathy or radiculopathy, lumbar region (principal); M51.36 Other intervertebral disc degeneration, lumbar region; M41.50 Other secondary scoliosis, site unspecified; M47.27 Other spondylosis with radiculopathy, lumbosacral region; M48.062 Spinal stenosis, lumbar region with neurogenic claudication | CPT/HCPCS: 99212 ==

== ENCOUNTER 2024-04-15 07:10 | Outpatient (REF) | payer OTHER, SELFPAY ==
--- NOTE | ~2024-04-15 | FL_ITS ---
EXAMINATION: XR FLUOROSCOPY WITH IMAGES CLINICAL INFORMATION: Spinal stenosis lumbar region with neurogenic claudication. COMPARISON: MR lumbar 11/20/2023. CT lumbar 01/18/2024. TECHNIQUE: Fluoroscopy provided to: Dr. Rivers Fluoroscopy time: 0.3 minutes DAP: [id number] mGycm2 Images: 2 FINDINGS: PA and lateral spot views of the sacrum show needle placement within the sacral foramen and epidural injection of contrast into the sacrum, outlining sacral nerve roots. FL/FL guidance in treatment room IMPRESSION: Fluoroscopic guidance. Please refer to the full operative report for details. Electronically signed by: Puma Isaac MD 06/12/2024 08:37 AM EDT
== END 2024-04-15 07:11 | disposition home or self-care (01) ==
LOC: CF 07:10
PROVIDERS: Visit Provider Anesthesiology
DX: M48.062 Spinal stenosis, lumbar region with neurogenic claudication (principal); M47.816 Spondylosis without myelopathy or radiculopathy, lumbar region; M51.36 Other intervertebral disc degeneration, lumbar region; M41.50 Other secondary scoliosis, site unspecified; M47.27 Other spondylosis with radiculopathy, lumbosacral region
CPT/HCPCS: 62321; J3301; Q9967

== ENCOUNTER 2024-04-15 09:56 | Outpatient (AMB) | payer OTHER, SELFPAY ==
[2024-04-15 10:03] VITALS: BP 141/73; PULSE 68; RESP 16; O2SAT 95
--- NOTE | 2024-04-15 10:03 | A.OFFVIS_ITS ---
Vital Signs 04/15/24 10:03 04/15/24 11:10 BP 141/73 H 177/63 H Blood Pressure Location Lt brachial Lt brachial Position Sitting Sitting Respiration 16 17 Pulse 68 67 Pulse Source Pulse Oximeter Pulse Oximeter Pulse Oximetry (%) 95 96 Oxygen Delivery Method Room Air Room Air Comment Pre-op Post-op Intake Visit Reasons: Caudal KAYLIE with Catheter Allergies amoxicillin [Augmentin] Adverse Reaction (Unknown, Verified 02/28/24 11:10) N/V high dose influenza Adverse Reaction (Uncoded 01/01/24 10:09) Hives [facility] Medical History Trochanteric bursitis, right hip Chronic insomnia Hx of myocardial infarction Myocardial infarct Major depression in full remission Type 2 diabetes mellitus without complication, without long-term current use of insulin Essential hypertension Acquired hypothyroidism CAD (coronary artery disease) COPD (chronic obstructive pulmonary disease) Surgical History Hx of colonoscopy History of heart artery stent History of total hysterectomy Family History Father Parkinson disease Scoliosis Cancer Mother Colon cancer Maternal Grandmother No problems noted. Maternal Grandfather No problems noted. Paternal Grandmother Lung cancer Paternal Grandfather Alcoholism Diabetes mellitus Social History (Updated 01/01/24 @ 10:15 by LYDIA Nolan) Housing: House Alcohol intake: current Alcohol intake frequency: a few times a week Patient Tobacco Use Status: Former Tobacco user Tobacco use type: Smokeless Tobacco Years Smoked: 14 e-Cigarette/Vaping Use: Currently Using service: No Current occupational status: retired Cognitive needs: No Hearing needs: No Vision needs: Yes Physical Exam Vital Signs: Last Vital Signs Pulse 67 04/15/24 11:10 Resp 17 04/15/24 11:10 BP 177/63 H 04/15/24 11:10 Pulse Ox 96 04/15/24 11:10 Oxygen Delivery Method Room Air 04/15/24 11:10 Assessment & Plan Assessment & Plan (1) Lumbar spondylosis: Code(s): M47.816 - Spondylosis without myelopathy or radiculopathy, lumbar region Category: Medical (2) Lumbar degenerative disc disease: Code(s): M51.36 - Other intervertebral disc degeneration, lumbar region Category: Medical (3) Degenerative scoliosis: Code(s): M41.50 - Other secondary scoliosis, site unspecified Category: Medical (4) Lumbosacral spondylosis with radiculopathy: Code(s): M47.27 - Other spondylosis with radiculopathy, lumbosacral region Category: Medical Plan: Caudal KAYLIE with catheter. Informed consent was explained to the patient. All questions were explained and answered. The patient was taken inside of the operating room where she was positioned prone on the operating table. Time-out was performed delineating patient's name and date of , correct site, side, the nature of the procedure, patient's allergy, All operating room staff and the patient were participating in OR time-out procedure. the patient's lower back buttock and intragluteal crease were prepped with ChloraPrep and draped with sterile utility draped. C-arm was brought over the operating field and sq picture of sacral bone was delineated on the screen. the target of needle insertion was chosen as a caudal hiatus. The projection of the caudal hiatus to the skin was chosen as point of local anesthetic injection. 2% lidocaine 3 mls were injected into the skin. After that 18 G Tuohy needle was inserted through the skin and under intermittent AP and lateral guide was advanced into the sacral hiatus and into the caudal canal . injection of the contrast demonstrated epidural spread of the contrast. After that 22 g epidual catheter was advanced into the epidural space until the resistance was met and the injection of the contrast was performed again. The injection of the contrast was delineating epidural space at the L5-S1 and S1 proper intervale. After that injection of 25 mls of normal saline was performed into the catheter. Following this injection of the lidocaine 1% PF 5 mL mixed with kenalog 40 mg was performed with the catheter. The needle and the catheter were removed en mass, the tip of the catheter was intact. Sterile bandaid was applied.The patient tolerated the procedure very well. (5) Spinal stenosis, lumbar region with neurogenic claudication: Code(s): M48.062 - Spinal stenosis, lumbar region with neurogenic claudication Category: Medical Plan Estrella is a very pleasant 78-year-old female who presented to the office today for follow-up, interventional management procedure discussion Recent MRI, CT scan and multiple provider visit notes were reviewed and discussed with patient during the visit today Discussed at length diagnosis and options for treatment with the patient including diagnostic testing, epidural steroid injections, minimally invasive lumbar decompression surgery and more permanent neuromodulation with spinal cord stimulation. Patient has exhausted conservative therapy including greater than 6 months of physical therapy, NSAIDs, heat, ice, topical medications, prescription medications and medicinal patches all without improvement of her pain. Will schedule patient for fluoroscopy guided caudal KAYLIE with catheter with local anesthetic. All questions and concerns were answered, patient agrees with the plan. Follow up after procedure, sooner if needed Patient was advised on red flag symptoms and when to seek treatment in the emergency room Orders: Orders FL guidance in treatment room Today M48.062 - Spinal stenosis, lumbar region with neurogenic claudication Coding Level of Care Code Procedure Only Diagnoses Lumbar spondylosis M47.816 Lumbar degenerative disc disease M51.36 Degenerative scoliosis M41.50 Lumbosacral spondylosis with radiculopathy M47.27 Spinal stenosis, lumbar region with neurogenic claudication M48.062
[2024-04-15 11:10] VITALS: BP 177/63; PULSE 67; RESP 17; O2SAT 96
== END 2024-04-15 11:28 | disposition home or self-care (01) ==
LOC: HO.PMCPRC 09:56
PROVIDERS: PCP Internal Medicine; Visit Provider Anesthesiology
DX: M47.816 Spondylosis without myelopathy or radiculopathy, lumbar region (principal); M51.36 Other intervertebral disc degeneration, lumbar region; M41.50 Other secondary scoliosis, site unspecified; M47.27 Other spondylosis with radiculopathy, lumbosacral region; M48.062 Spinal stenosis, lumbar region with neurogenic claudication
CPT/HCPCS: 62321

== ENCOUNTER 2024-05-12 10:54 | Outpatient (AMB) | payer OTHER, SELFPAY ==
--- NOTE | 2024-05-12 11:01 | MHC.OFFVIS ---
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 Rivers. Patient reports 60% pain relief since procedure with partial improvement in her daily functioning but not significant change in her walking capacity. She reports increased low back pain with intermittent radiation into her bilateral lower extremities, worse on the left. Patient also reports bilateral hip bursitis, right>left and has upcoming follow up with Rheumatology services. Patient reports increased low back pain within less than 5 minutes or walking or 2 minutes of standing. She will monitor the longevity effects of recent injection and follow up with Dr. Hogan for any symptoms of neurogenic claudication which we reviewed today. Denies any recent cough, cold, infection, fever, any significant changes in her medical history, medications or recent hospitalizations. Past Procedures: 04/15/24: Caudal KAYLIE with catheter-60% ongoing pain relief PRIOR Silvia H. GOOD HUMOR VENDOR: Estrella presents back to the office today for follow up to discuss interventional treatment options for her back pain recent MRI, CT, pain mgmt notes and neurospine notes reviewed. imaging as per below. Continues to endorse midline lower back pain worse with walking. Pain improves with rest. Denies radiation of the pain down either lower extremity Denies red flag symptoms including new loss of bowel, bladder or saddle anesthesia Previous right leg pain has resolved after trochanteric bursa injection Denies current use of anticoagulation medications Patient is not diabetic Prior visit with Emilia LIFT MECHANIC: Patient presents today for follow up to discuss recent lumbar spine MRI results. Patient continues to endorse significant low back pain with right sided radiculopathy with neurogenic claudication due to severe spinal stenosis and degenerative scoliosis. She was also sent for Neurosurgical evaluation and was seen by [facility] team on 11/30/23 and 12/05/23 with discussion for possibility of a scoliosis correction surgery and the possibility of lumbar decompression at multiple levels after re-evaluation with CT scan. Patient reports that CT scan was not scheduled yet and is concerned for this. Patient reports she her back pain increases to 8/10 after walking for <5-7 min or standing <5 min. She recently received walker with seat and has been taking frequent breaks during her walking or standing. Patient denies any increase in back pain during sitting but can only tolerate sitting for about 20 min. She continues to utilize tramadol, Tylenol, NSAIDs, heat therapy and THC tincture for her chronic pain. Denies any recent cough, cold, infection, fever, any significant changes in her medical history, medications or recent hospitalizations. [facility] notes, DK Rodriguez 12/05/23: The patient's case was reviewed with Dr. Hogan she is going to be sent for a CT scan of lumbar spine and that will be scheduled to see Dr. Hogan again after this. The CT scan will be to evaluate for L2-3 fusion. If she is fused at this level at allow for scoliosis correction under this segment. PRIOR: Patient is a pleasant 78 years old female with prior history of lumbar spondylosis with myelopathy and lumbar spinal stenosis, presents today for initial evaluation of chronic low back pain with left sided radiculopathy. Reports frequent tripping over her pets or while walking and has been frequently loosing her balance. She uses cane with ambulation and awaits for walker with seat. Denies any past or recent trauma or injury. Back pain is axial and also radiates into her left lateral and anterior thigh with intermittent numbness and tingling in her left davies. Reports chronic cramping and tingling in her ankles and toes. Patient reports recent corticosteroid injection to her right trochanteric bursa with good result. She also takes tramadol 100 mg BID and tincture of THC at nighttime for sleep and pain. Pain affects her daily activities, functioning, sleep, social interactions and quality of life. Denies any fever, abdominal or groin pain, bladder or bowel dysfunction or saddle anesthesia. Previous lumbar spine MRI showed advanced multilevel lumbar spondylosis is accentuated by the patient's rotatory dextroscoliosis and is worst at L3-L4, where degenerative changes lead to moderate to severe canal stenosis and significant apparent mass effect on the traversing left L4 nerve root. Patient denies previous spine surgery or injections. Reports she was told she was non-surgical candidate by her previous provider. Patient is interested in interventional treatments to address her axial and radicular pain symptoms. Location Lower back pain radiating to her lower extremities Duration Chronic pain for >7 years, fell on ice 2 vertebrae went into my tailbone Characteristics of symptom or complaint Aching, radiating, numbness, tingling, sharp, stabbing, burning Aggravating or associated factors Walking, prolonged standing, movements, cold weather Relieving factors Sitting, heat therapy, tramadol, THC tincture (sleep/pain), Tylenol, NSAIDs Treatment Right GTB cortisone injection 09/2023, PT in past PFSH Medical History Trochanteric bursitis, right hip Chronic insomnia Hx of myocardial infarction Myocardial infarct Major depression in full remission Type 2 diabetes mellitus without complication, without long-term current use of insulin Essential hypertension Acquired hypothyroidism CAD (coronary artery disease) COPD (chronic obstructive pulmonary disease) Surgical History Hx of colonoscopy History of heart artery stent History of total hysterectomy Family History Father Parkinson disease Scoliosis Cancer Mother Colon cancer Maternal Grandmother No problems noted. Maternal Grandfather No problems noted. Paternal Grandmother Lung cancer Paternal Grandfather Alcoholism Diabetes mellitus Social History Housing: House Alcohol intake: current Alcohol intake frequency: a few times a week Patient Tobacco Use Status: Former Tobacco user Tobacco use type: Smokeless Tobacco Years Smoked: 14 e-Cigarette/Vaping Use: Currently Using service: No Current occupational status: retired Cognitive needs: No Hearing needs: No Vision needs: Yes Review of Systems Const All systems reviewed & are unremarkable except as noted in HPI and below Physical Exam Vital Signs: Last Vital Signs Pulse 72 05/12/24 11:09 BP 147/67 H 05/12/24 11:09 Pulse Ox 98 05/12/24 11:09 Oxygen Delivery Method Room Air 08/26/24 11:09 BMI result Body Mass Index 28.3 General: Appears afebrile. Alert and oriented. Mood and affect appropriate. Follows and participates in conversation appropriately. Respiratory effort is unlabored. No cough. Able to transition from sit to stand unassisted but this exacerbates her back pain. Ambulates with bilaterally normal heel strike and toe off, reports increase pain with standing on toes. Walking today without assisting devices, in hunched over position, antalgic gait with mild limping on the right. Back/Spine/Pelvis Cervical Spine: loss of normal cervical lordosis and No Cervical spine tenderness Thoracic/Lumbar Spine: thoracic and lumbar spine normal to inspection, No Thoracic/lumbar spine scar(s), Lasegue's sign positive bilateral, pain with thoraco-lumbar ROM, paraspinal muscle tenderness, thoraco-lumbar ROM limited, Thoracic/lumbar scoliosis, No thoracic spinal tenderness, lumbar spinal tenderness (L4-S1) and straight leg raise positive Pelvis: no buttock tenderness Sacroiliac joints: on the right tender to palpation and on the left nontender Extrem General: Yes capillary refill normal, Yes no clubbing, cyanosis or edema and Yes no calf tenderness Results Reviewed Results Reviewed: 01/18/2024 CT/CT lumbar spine wo IV con FINDINGS: As seen on the MRI study, there is a significant rightward convex curvature of the lumbar spine with the apex of curvature centered at the L2 level. Bulky multilevel endplate osteophyte formation noted, more so laterally on the left side at the L1, L2, and L3 levels. There is a lateral subluxation of L3 relative to L4 as well. Bulky right lateral endplate spurring evident from the L4 to the sacral levels with vacuum disc phenomenon. No compression fractures are seen. L1-L2: Slight posterior subluxation and disc bulge with mild facet arthropathy. No central canal stenosis or significant foraminal narrowing. L2-L3: Asymmetric significant left-sided disc space narrowing with endplate spurring. Diffuse disc bulge present with mild encroachment upon the left subarticular zone. Mild facet arthropathy. No significant central canal stenosis or foraminal narrowing. L3-L4: Diffuse disc bulge and moderate facet arthropathy with thickening of the ligamentum flavum resulting in severe central canal stenosis and thecal sac compression, as on MR imaging, with severe left foraminal narrowing from ossific spurring. Mild right foraminal narrowing. Lateral subluxation of L3 relative to L4 as well. L4-L5: Significant bulky right lateral endplate spurring and disc bulge with facet arthropathy. Mild central canal stenosis and [id number] right foraminal narrowing. L5-S1: Anterolisthesis and advanced facet arthropathy with moderate central canal stenosis. Unroofed mild disc bulge. Facet spurring encroaches upon the right lateral recess contacting the right S1 nerve root. Severe right foraminal narrowing and distortion of the exiting right L5 nerve root. The paraspinal soft tissues appear normal. There are moderate atherosclerotic wall calcifications in the infrarenal abdominal aorta and iliac vessels. [id number] degenerative changes and vacuum phenomenon affect the sacroiliac joints bilaterally. A few scattered sigmoid colonic diverticula are incidentally visualized. The imaged portions of the lungs are relatively clear. IMPRESSION: Stable extensive multilevel lumbar spondylosis with severe central canal stenosis at the L3-L4 level. Significant left foraminal narrowing as well, with a lateral subluxation at this level. Severe rightward lumbar spinal curvature. No compression fractures. Anterolisthesis and advanced facet degeneration at L5 on S1 with moderate central canal stenosis. Bony spurring encroaching upon the right lateral recess and mildly impressing upon the right S1 nerve root. Severe right foraminal narrowing and distortion of the right L5 nerve root. XR LUMBOSACRAL SPINE WITH OBLIQUES 11/30/23 CLINICAL INFORMATION: Back pain. Spinal stenosis without neurogenic claudication. COMPARISON: MRI lumbar spine of 11/20/2023. TECHNIQUE: AP, lateral neutral, flexion and extension views of the lumbar spine. FINDINGS: Bones are diffusely demineralized. Atherosclerotic aortic calcifications. Severe rightward curvature of the lumbar spine with notable grade 1 lateral listhesis of L3 on L4. Degenerative changes with loss of disc space height and hypertrophic change at L1-L2 and L2-L3. The L4-L5 and L5-S1 disc spaces are not well visualized, suggesting possible fusion, and correlation with surgical history recommended. Advanced facet arthritis in the mid to lower lumbar spine IMPRESSION: 1. Severe degenerative disc disease at L1-L2 and L2-L3. 2. L4-L5 and L5-S1 disc spaces are not well visualized, suggesting possible fusion, and correlation with surgical history recommended. MR LUMBAR SPINE WITHOUT CONTRAST 11/20/23 FINDINGS: There are 5 nonrib-bearing lumbar-type vertebral bodies. Severe rightward convex scoliotic curvature of the lumbar spine associated with grade 1 right lateral listhesis of L3 on L4, progressed when compared to the previous study. Grade 1 degenerative anterolisthesis of L5 on S1. Moderate to severe disc volume loss at the L2-L3, L3-L4, L4-L5, and L5-S1 levels, all progressed. Modic type I endplate signal changes at L2-L3 and L3-L4. No additional bone marrow edema. No acute fractures. Chronic endplate Schmorl's nodes at all lumbar levels. Multilevel endplate osteophytes. Conus terminates at the T12-L1 level. Bilateral parapelvic cysts. Right foraminal perineural cyst at T10-T11. L1-L2: Left lateral disc osteophyte results in mild left-sided foraminal encroachment. No central canal and no right foraminal stenosis. L2-L3: Left paracentral/left lateral disc osteophyte protrusion results in similar left subarticular zone stenosis with mass effect on the traversing left L3 nerve root and similar mild left-sided foraminal encroachment without exiting nerve root compression. Mild left-sided central canal stenosis unchanged. L3-L4: Diffuse disc osteophyte complex and severe left greater then right facet arthropathy and ligamentum flavum thickening. Findings in concert result in similar appearing moderate to severe central canal stenosis, right greater than left subarticular zone stenosis with mass effect on the traversing right L4 nerve root, and moderate left-sided foraminal stenosis with mass effect on the exiting left L3 nerve root. L4-L5: Right paracentral/right lateral disc osteophyte protrusion results in similar compression of the extraforaminal right L4 nerve root and similar right subarticular zone stenosis with mild mass effect on the traversing right L5 nerve root within the right subarticular zone. No central canal and no left foraminal stenosis.. L5-S1: Grade 1 degenerative anterolisthesis. Diffuse disc osteophyte and severe bilateral facet arthropathy and ligamentum flavum thickening. Findings in concert result in similar moderate to severe central canal stenosis, severe right subarticular zone stenosis with compression of the traversing right S1 nerve root, and moderate to severe right foraminal stenosis with compression of the exiting right L5 nerve root. IMPRESSION: * Progressive severe rightward convex scoliotic curvature of the lumbar spine superimposed on advanced multilevel degenerative disc disease and hypertrophic facet arthropathy: * At L5-S1, grade 1 degenerative anterolisthesis and advanced multifactorial degenerative changes result in similar moderate to severe central canal stenosis, severe right subarticular zone stenosis with compression of the traversing right S1 nerve root, and moderate to severe right foraminal stenosis with compression of the exiting right L5 nerve root. * At L4-L5, a right paracentral/right lateral disc osteophyte protrusion results in similar compression of the extraforaminal right L4 nerve root and similar right subarticular zone stenosis with mild mass effect on the traversing right L5 nerve root within the right subarticular zone. * At L3-L4, advanced multifactorial degenerative changes result in similar appearing moderate to severe central canal stenosis, right greater than left subarticular zone stenosis with mass effect on the traversing right L4 nerve root, and moderate left-sided foraminal stenosis with mass effect on the exiting left L3 nerve root. * At L2-L3, a left paracentral/left lateral disc osteophyte protrusion results in similar left subarticular zone stenosis with mass effect on the traversing left L3 nerve root and similar mild left-sided foraminal encroachment without exiting nerve root compression. Mild left-sided central canal stenosis unchanged. Assessment & Plan Assessment & Plan (1) Lumbar spondylosis: Code(s): M47.816 - Spondylosis without myelopathy or radiculopathy, lumbar region Category: Medical (2) Lumbar degenerative disc disease: Code(s): M51.36 - Other intervertebral disc degeneration, lumbar region Category: Medical (3) Degenerative scoliosis: Code(s): M41.50 - Other secondary scoliosis, site unspecified Category: Medical (4) Lumbosacral spondylosis with radiculopathy: Code(s): M47.27 - Other spondylosis with radiculopathy, lumbosacral region Category: Medical (5) Spinal stenosis, lumbar region with neurogenic claudication: Code(s): M48.062 - Spinal stenosis, lumbar region with neurogenic claudication Category: Medical Plan Patient is month status post Caudal KAYLIE with catheter injection providing her 60% pain relief in lower back. She has intermittent radiation to her BLE with significantly restricted walking capacity due to exacerbation of lower back pain with walking or standing. Patient will continue to monitor effects of recent injection and notify our office when her symptoms return to baseline. Patient is aware to follow up with [facility] for worsening symptoms of neurogenic claudication. Patient has exhausted conservative therapy including greater than 6 months of physical therapy, NSAIDs, heat, ice, topical medications, prescription medications and medicinal patches all without improvement of her pain. Patient was advised on red flag symptoms and when to seek treatment in the emergency room. All questions and concerns were answered, patient agrees with the plan. Follow up as needed. Coding Level of Care Code Est Pt Level 3 (75447) Diagnoses Lumbar spondylosis M47.816 Lumbar degenerative disc disease M51.36 Degenerative scoliosis M41.50 Lumbosacral spondylosis with radiculopathy M47.27 Spinal stenosis, lumbar region with neurogenic claudication M48.062
[2024-05-12 11:09] VITALS: BP 147/67; PULSE 72; O2SAT 98; BMI 28.3
== END 2024-05-12 11:31 | disposition home or self-care (01) ==
PROVIDERS: PCP Internal Medicine; Visit Provider Nurse Practitioner Family
DX: M47.816 Spondylosis without myelopathy or radiculopathy, lumbar region (principal); M51.36 Other intervertebral disc degeneration, lumbar region; M41.50 Other secondary scoliosis, site unspecified; M47.27 Other spondylosis with radiculopathy, lumbosacral region; M48.062 Spinal stenosis, lumbar region with neurogenic claudication
CPT/HCPCS: 99213

== ENCOUNTER → 2024-05-12 10:54 | Outpatient (BNVA) | payer OTHER, SELFPAY | PROVIDERS: PCP Internal Medicine; Visit Provider Nurse Practitioner Family | DX: M47.816 Spondylosis without myelopathy or radiculopathy, lumbar region (principal); M51.36 Other intervertebral disc degeneration, lumbar region; M41.50 Other secondary scoliosis, site unspecified; M47.27 Other spondylosis with radiculopathy, lumbosacral region; M48.062 Spinal stenosis, lumbar region with neurogenic claudication | CPT/HCPCS: 99212 ==

== ENCOUNTER 2024-06-12 11:01 | Outpatient (REF) | payer OTHER, SELFPAY ==
--- NOTE | ~2024-06-12 | MM_ITS ---
EXAMINATION: MM SCREENING DIGITAL BREAST TOMOSYNTHESIS, BILATERAL CLINICAL INFORMATION: Screening. Asymptomatic. COMPARISON: Mammography: Comparison is made with available priors TECHNIQUE: Digital breast mammography with tomosynthesis is performed in both the craniocaudal and mediolateral oblique views along with computer-aided detection (CAD). FINDINGS: There are scattered areas of fibroglandular density (ACR BI-RADS breast composition Category b). There are no significant masses, abnormal calcifications, or other abnormalities. MM/MM tomosynthesis screening BI IMPRESSION: No mammographic evidence of malignancy. ASSESSMENT: BI-RADS BI-RADS 1 - Negative RECOMMENDATION: Routine annual mammography screening. 1 year F/U This examination should not preclude the clinical evaluation of a suspicious palpable abnormality. This patient's information was entered into a reminder system with a target due date for their next mammogram. Electronically signed by: Vaishali Banks DO 06/23/2024 05:34 PM EDT
== END 2024-06-12 11:02 | disposition home or self-care (01) ==
LOC: HO.MAMMO 11:01
PROVIDERS: PCP Internal Medicine; Visit Provider Internal Medicine
DX: Z12.31 Encounter for screening mammogram for malignant neoplasm of breast (principal)
CPT/HCPCS: 77063; 77067

== ENCOUNTER → 2024-06-12 11:15 | Outpatient (BNV) | payer OTHER, SELFPAY | PROVIDERS: PCP Internal Medicine; Visit Provider Internal Medicine | DX: Z12.31 Encounter for screening mammogram for malignant neoplasm of breast (principal) | CPT/HCPCS: 77063; 77067 ==

== ENCOUNTER 2024-06-18 14:34 | Outpatient (AMB) | payer OTHER, SELFPAY ==
--- NOTE | 2024-06-18 14:45 | A.OFFVIS_ITS ---
Vital Signs 06/18/24 14:49 Height 5 ft 5 in Weight 167 lb 8.821 oz BMI 27.9 BP 142/64 H Blood Pressure Location Lt brachial Position Sitting Pulse 75 Pulse Source Pulse Oximeter Pulse Oximetry (%) 95 Oxygen Delivery Method Room Air Intake Visit Reasons: OA/Hip Bursitis Intake Note: Patient presents for OA/Hip Bursitis. Allergies amoxicillin [Augmentin] Adverse Reaction (Unknown, Verified 06/18/24 14:48) N/V high dose influenza Adverse Reaction (Uncoded 01/01/24 10:09) Hives Medication List - Last Reconciled 06/18/24 by Brandy Key MD albuterol sulfate 2.5 mg (3 mL) inhalation Q4-6H PRN albuterol sulfate 90 mcg/actuation (ProAir HFA) 2 inhalations inhalation Q6H PRN aspirin 81 mg PO DAILY atorvastatin 10 mg PO DAILY [id number]-[id number]-V4-[id number]-BA 485-1-55-5-1.5 mg tabs PO cholecalciferol (vitamin D3) 25 mcg PO DAILY citalopram 40 mg PO DAILY docusate sodium 100 mg PO DAILY hydrochlorothiazide 25 mg PO DAILY levothyroxine 137 mcg PO DAILY lisinopril-hydrochlorothiazide 20-25 mg 1 tab PO DAILY multivitamin 1 tab PO DAILY omeprazole 20 mg PO DAILY tramadol 100 mg (2 x 50 mg) PO TID PRN trazodone 100 mg PO BEDTIME PRN HPI Comments Details: This is a 78-year-old female with known degenerative disc disease of her spine who presents for follow-up. Stated that trochanteric bursitis done last visit did not provide any relief, this is different compared to the 1st injection which was quite helpful. She had another procedure by Pain Management towards the end of April. She did not feel it was helpful. She is not interested in going back to pain management. She states that her back pain keeps getting worse. She is on tramadol 100 mg Twice daily and feels it is not enough. She would like to increase it or change it to something else if possible [facility] Medical History Trochanteric bursitis, right hip Chronic insomnia Hx of myocardial infarction Myocardial infarct Major depression in full remission Type 2 diabetes mellitus without complication, without long-term current use of insulin Essential hypertension Acquired hypothyroidism CAD (coronary artery disease) COPD (chronic obstructive pulmonary disease) Surgical History Hx of colonoscopy History of heart artery stent History of total hysterectomy Family History Father Parkinson disease Scoliosis Cancer Mother Colon cancer Maternal Grandmother No problems noted. Maternal Grandfather No problems noted. Paternal Grandmother Lung cancer Paternal Grandfather Alcoholism Diabetes mellitus Social History Housing: House Alcohol intake: current Alcohol intake frequency: a few times a week Patient Tobacco Use Status: Former Tobacco user Tobacco use type: Smokeless Tobacco Years Smoked: 14 e-Cigarette/Vaping Use: Currently Using [employer] service: No Current occupational status: retired Cognitive needs: No Hearing needs: No Vision needs: Yes Female Reproductive History Menstrual control method: none Menopause type: surgical Age of menopause: 31 Total pregnancies: 1 Full term: 1 Number of Living Children: 1 Date of last pap smear: 03/17/13 (neg pap) History of abnormal pap smear: Yes History of STI: No History of abnormal mammogram: No Review of Systems Musc Reports back pain and Reports arthralgias Physical Exam Vital Signs: Last Vital Signs Pulse 75 06/18/24 14:49 BP 142/64 H 06/18/24 14:49 Pulse Ox 95 06/18/24 14:49 Oxygen Delivery Method Room Air 06/18/24 14:49 BMI result Body Mass Index 27.9 Const General: cooperative, healthy appearing and comfortable Nutritional Appearance: overweight Limitations: no limitations HEENT Head: Yes normocephalic and Yes atraumatic Mouth: moist mucous membranes Resp Effort & Inspection: normal respiratory effort and able to speak in complete sentences Cardio Rate: regular rate Extrem Other: Osteoarthritic changes of both hands with no active synovitis Normal range of motion of hands, wrists, elbows and shoulders without pain Multiple tender paraspinal muscles especially lower lumbar paraspinal muscles Bilateral trochanteric bursa area tenderness Assessment & Plan Assessment & Plan (1) Spinal stenosis, lumbar region with neurogenic claudication: Code(s): M48.062 - Spinal stenosis, lumbar region with neurogenic claudication Category: Medical Plan: This is a 78-year-old female with known lumbar degenerative disc disease who presents for follow-up. Patient has had multiple procedures by Pain Management without much relief. She was evaluated by a spine surgeon and no surgery was suggested. Her pain is not well controlled. She tramadol 200 mg Twice daily. Patient would like to increase her tramadol I think it is not unreasonable slow increase her tramadol to 300 mg daily in divided doses. Advised patient to watch out for any side effects such as dizziness/lightheadedness/lethargy Follow-up in 4-5 months Plan I spent 30 minutes reviewing patient's chart, evaluating patient, completing RMV paperwork, counseling patient and documenting in the chart Medications: Changed From tramadol 50 mg PO Q6H PRN 120 tabs 3RF pain M47.27 - Other spondylosis with radiculopathy, lumbosacral region To tramadol 100 mg (2 x 50 mg) PO TID PRN 180 tabs 2RF pain M47.27 - Other spondylosis with radiculopathy, lumbosacral region Coding Level of Care Code Est Pt Level 4 (94161) Diagnoses Spinal stenosis, lumbar region with neurogenic claudication M48.062
[2024-06-18 14:49] VITALS: BP 142/64; PULSE 75; O2SAT 95; BMI 27.9
== END 2024-06-18 15:38 | disposition home or self-care (01) ==
PROVIDERS: PCP Internal Medicine; Visit Provider Student in an Organized Health Care Education/Training Program
DX: M48.062 Spinal stenosis, lumbar region with neurogenic claudication (principal)
CPT/HCPCS: 99214

== ENCOUNTER → 2024-06-18 14:34 | Outpatient (BNVA) | payer OTHER, SELFPAY | PROVIDERS: PCP Internal Medicine; Visit Provider Student in an Organized Health Care Education/Training Program | DX: M48.062 Spinal stenosis, lumbar region with neurogenic claudication (principal) | CPT/HCPCS: 99212 ==

== ENCOUNTER 2024-06-27 10:10 | Outpatient (AMB) | payer OTHER, SELFPAY ==
--- NOTE | 2024-06-27 10:11 | MHC.OFFVIS ---
Vital Signs 06/27/24 10:13 Height 5 ft 5 in Weight 167 lb 5.294 oz BMI 27.8 BP 140/66 H Blood Pressure Location Rt brachial Position Sitting Respiration 14 Pulse 58 Pulse Source Pulse Oximeter Pulse Oximetry (%) 95 Oxygen Delivery Method Room Air Intake Visit Reasons: Rt Hip pain/inj Intake Note: Patient presents for eight hip pain. Allergies amoxicillin [Augmentin] Adverse Reaction (Unknown, Verified 06/27/24 10:16) N/V high dose influenza Adverse Reaction (Uncoded 01/01/24 10:09) Hives Medication List - Last Reconciled 06/27/24 by Brandy Key MD albuterol sulfate 2.5 mg (3 mL) inhalation Q4-6H PRN albuterol sulfate 90 mcg/actuation (ProAir HFA) 2 inhalations inhalation Q6H PRN aspirin 81 mg PO DAILY atorvastatin 10 mg PO DAILY [id number]-[id number] 001-6-35-5-1.5 mg tabs PO cholecalciferol (vitamin D3) 25 mcg PO DAILY citalopram 40 mg PO DAILY docusate sodium 100 mg PO DAILY hydrochlorothiazide 25 mg PO DAILY levothyroxine 137 mcg PO DAILY lisinopril-hydrochlorothiazide 20-25 mg 1 tab PO DAILY multivitamin 1 tab PO DAILY omeprazole 20 mg PO DAILY tramadol 100 mg (2 x 50 mg) PO TID PRN trazodone 100 mg PO BEDTIME PRN HPI Comments Details: Patient presents for right hip trochanteric bursitis injection [facility] Medical History Trochanteric bursitis, right hip Chronic insomnia Hx of myocardial infarction Myocardial infarct Major depression in full remission Type 2 diabetes mellitus without complication, without long-term current use of insulin Essential hypertension Acquired hypothyroidism CAD (coronary artery disease) COPD (chronic obstructive pulmonary disease) Surgical History Hx of colonoscopy History of heart artery stent History of total hysterectomy Family History Father Parkinson disease Scoliosis Cancer Mother Colon cancer Maternal Grandmother No problems noted. Maternal Grandfather No problems noted. Paternal Grandmother Lung cancer Paternal Grandfather Alcoholism Diabetes mellitus Social History Housing: House Alcohol intake: current Alcohol intake frequency: a few times a week Patient Tobacco Use Status: Former Tobacco user Tobacco use type: Smokeless Tobacco Years Smoked: 14 e-Cigarette/Vaping Use: Currently Using service: No Current occupational status: retired Cognitive needs: No Hearing needs: No Vision needs: Yes Review of Systems Musc Reports arthralgias Physical Exam Vital Signs: Last Vital Signs Pulse 58 06/27/24 10:13 Resp 14 06/27/24 10:13 BP 140/66 H 06/27/24 10:13 Pulse Ox 95 06/27/24 10:13 Oxygen Delivery Method Room Air 06/27/24 10:13 BMI result Body Mass Index 27.8 Const General: cooperative, healthy appearing and comfortable Nutritional Appearance: overweight Limitations: no limitations HEENT Head: Yes normocephalic and Yes atraumatic Mouth: moist mucous membranes Resp Effort & Inspection: normal respiratory effort and able to speak in complete sentences Extrem Other: Osteoarthritic changes of both hands with no active synovitis Normal range of motion of hands, wrists, elbows and shoulders without pain Multiple tender paraspinal muscles especially lower lumbar paraspinal muscles Bilateral trochanteric bursa area tenderness Office Procedures Joint Injection/Aspiration Joint Injection/Aspiration Details: Right trochanteric bursa Prep: site was prepped using sterile technique and ethochloride spray was applied Injected: 40 mg of, Kenalog, with 1 mL of and 1% plain lidocaine Procedure: The patient tolerated the procedure well Coding Details: With the patient's consent, the right lateral hip area was prepped with for Chloraprep and alcohol. Under a topical ethyl chloride spray the tender area over the trochanteric region was injected with 40 mg of Kenalog and 1 cc of 1% lidocaine. The patient tolerated the procedure with no adverse effects. 00725 - Glenohumeral/Tronchanteric Bursa/Intraarticular Procedure code (CPT) selection complete Assessment & Plan Assessment & Plan (1) Trochanteric bursitis, right hip: Code(s): M70.61 - Trochanteric bursitis, right hip Category: Medical Plan: With patient's consent can not right hip trochanteric bursa was injected with Kenalog today. Follow-up as scheduled in 4 months Orders: Orders AMB Joint Injection/Aspiration Today M70.61 - Trochanteric bursitis, right hip Coding Level of Care Code Procedure Only Diagnoses Trochanteric bursitis, right hip M70.61 CPT Codes Coding - Joint 7: 33071 - Glenohumeral/Tronchanteric Bursa/Intraarticular ([id number])
[2024-06-27 10:13] VITALS: BP 140/66; PULSE 58; RESP 14; O2SAT 95; BMI 27.8
== END 2024-06-27 10:33 | disposition home or self-care (01) ==
PROVIDERS: PCP Internal Medicine; Visit Provider Student in an Organized Health Care Education/Training Program
DX: M70.61 Trochanteric bursitis, right hip (principal)
CPT/HCPCS: 20610

== ENCOUNTER → 2024-06-27 10:10 | Outpatient (BNVA) | payer OTHER, SELFPAY | PROVIDERS: PCP Internal Medicine; Visit Provider Student in an Organized Health Care Education/Training Program | DX: M70.61 Trochanteric bursitis, right hip (principal) | CPT/HCPCS: 20610 ==

== ENCOUNTER 2024-07-16 16:51 | Emergency (ER) | payer OTHER, SELFPAY ==
--- NOTE | 2024-07-16 | ECG_ITS ---
Test Reason : DIZZINESS Blood Pressure : / mmHG Vent. Rate : 089 BPM Atrial Rate : 089 BPM P-R Int : 174 ms QRS Dur : 096 ms QT Int : 378 ms P-R-T Axes : 075 060 069 degrees QTc Int : 459 ms Normal sinus rhythm Normal ECG When compared with ECG of 24-JAN-2011 10:18, No significant change was found Referred By: Anna Desir Electronically Signed By:VERN HARKINS
[2024-07-16 16:56] VITALS: BP 124/80; BP 155/80; PULSE 80; PULSE 99; RESP 20; TEMP 36.3; O2SAT 100; O2SAT 98; BMI 28.6
[2024-07-16 17:10] VITALS: PULSE 88; RESP 19; O2SAT 98
--- NOTE | 2024-07-16 17:35 | ED.ARRPALP ---
HPI - Arrhythmia/Palpitations General Chief Complaint: Dyspnea Stated Complaint: Svt tachycardia Time Seen by Provider: 07/16/24 17:05 History of Present Illness HPI narrative: Patient is a 79-year-old female with a history of hypertension previous history of [place] history of diabetes presented today with having palpitation. Patient was noted to have a heart rate in the 150s range. Was given a dose of 6 mg adenosine. A 2nd dose of 12 mg adenosine was given by the paramedics. On arrival patient's heart rate is 75. Her symptoms seems to have relief. Denies any chest pain with this episode. No history of the same. Stated the symptoms started at approximately 13:00. No coughing or congestion or upper respiratory symptoms. No history recreational drug use currently symptom free. Related Data Home Medications ?Medication ?Instructions ?Recorded ?Confirmed aspirin 81 mg tablet,delayed 81 mg PO DAILY 07/30/20 12/18/23 release cholecalciferol (vitamin D3) 25 25 mcg PO DAILY 07/30/20 12/18/23 mcg (1,000 unit) capsule multivitamin 1 tab PO DAILY 09/07/20 12/18/23 docusate sodium 100 mg capsule 100 mg PO DAILY 10/05/20 12/18/23 omeprazole 20 mg capsule,delayed 20 mg PO DAILY 10/05/20 12/18/23 release B3-azelaic ihtr-gohb-K8-copper-FA tab PO 07/12/23 12/18/23 600 mg-5 mg-10 mg-5 mg-1.5 mg tablet hydrochlorothiazide 25 mg tablet 25 mg PO DAILY 02/28/24 Previous Rx's ?Medication ?Instructions ?Recorded albuterol sulfate 2.5 mg/3 mL 2.5 mg (3 mL) inhalation Q4-6H PRN 03/15/21 (0.083 %) solution for nebulization shortness of breath or wheezing #75 mL albuterol sulfate 90 mcg/actuation 2 inh inhalation Q6H PRN shortness 01/18/24 aerosol inhaler (ProAir HFA) of breath or wheezing #8.5 grams citalopram 40 mg tablet 40 mg PO DAILY #90 tabs 05/01/24 levothyroxine 137 mcg tablet 137 mcg PO DAILY #90 tabs 06/05/24 lisinopril 20 1 tab PO DAILY #90 tabs 06/05/24 mg-hydrochlorothiazide 25 mg tablet atorvastatin 10 mg tablet 10 mg PO DAILY #90 tabs 06/12/24 tramadol 50 mg tablet 100 mg (2 x 50 mg) PO TID PRN pain 06/18/24 #180 tabs trazodone 100 mg tablet 100 mg PO BEDTIME PRN insomnia #90 06/24/24 tabs metoprolol tartrate 25 mg tablet 25 mg PO BID #30 tabs 07/16/24 Allergies Allergy/AdvReac Type Severity Reaction Status Date / Time amoxicillin [Augmentin] AdvReac Unknown N/V Verified 07/16/24 17:00 high dose influenza AdvReac Hives Uncoded 07/16/24 17:00 Review of Systems Review of Systems: Positive palpitation Yes all other systems are reviewed and are negative PMFSH Past Medical History Attestation statement: The following information was validated with the patient. Medical History Trochanteric bursitis, right hip Chronic insomnia Hx of myocardial infarction Myocardial infarct Major depression in full remission Type 2 diabetes mellitus without complication, without long-term current use of insulin Essential hypertension Acquired hypothyroidism CAD (coronary artery disease) COPD (chronic obstructive pulmonary disease) Surgical History Hx of colonoscopy History of heart artery stent History of total hysterectomy Family History Family History Father Parkinson disease Scoliosis Cancer Mother Colon cancer Maternal Grandmother No problems noted. Maternal Grandfather No problems noted. Paternal Grandmother Lung cancer Paternal Grandfather Alcoholism Diabetes mellitus Social History Social History Housing: House Alcohol intake: current Alcohol intake frequency: a few times a week Patient Tobacco Use Status: Former Tobacco user Tobacco use type: Smokeless Tobacco Years Smoked: 14 Smoked in Last 30 Days: Yes e-Cigarette/Vaping Use: Currently Using Use of substances other than those prescribed or required for medical reasons: Yes Substance Use Type: Marijuana Advance Directives: No Advance Directives Information Provided: No Do you have a plan to hurt others: No Plan service: No Current occupational status: retired Cognitive needs: No Hearing needs: No Vision needs: Yes Physical Exam Vital Signs: Vital Signs: Last Vital Signs Temp 98.4 F 07/16/24 19:29 Pulse 74 07/16/24 19:29 Resp 20 07/16/24 19:29 BP 136/72 07/16/24 19:29 Pulse Ox 98 07/16/24 19:29 O2 Del Method Room Air 07/16/24 19:29 BMI result Body Mass Index 28.6 Appearance: Alert. Oriented X3. No acute distress. Eyes: Pupils equal, round and reactive to light. ENT: Pharynx normal. Neck: Normal inspection. Neck supple. No lymph nodes noted. No crepitus CVS: Normal heart rate and rhythm. Pulses normal. Normal S1 and S2 Respiratory: No respiratory distress. Breath sounds normal. No Wheezing. No rales Abdomen: Soft and nontender. No rigidity. No distention. good BS x4 Skin: Skin warm and dry. Normal skin color. Normal skin turgor. Extremities: No lower extremity edema. Neurovascular intact to all extremities. No Lacerations. No Rash Neuro: Oriented X 3. No motor deficit. No sensory deficit. Moving all extermities. No slurred speech Medical Decision Making Medical Decision Making [facility] Narrative: Patient well-appearing on arrival symptom has completely resolved. She was given 6 of adenosine followed by 12 adenosine. There is no chest pain is no diaphoresis. No fever no chills. Denies any changes in her medication. Patient's case consulted by the hardware designer. Dr. Anne. Will start patient on metoprolol 25 mg twice a day. Follow up with him on an outpatient basis. Patient in no distress. Symptoms completely relieved. Differential Diagnosis Differential Diagnoses: The differential diagnosis associated with the presentation includes SVT, AFib, arrhythmia Admission/Observation Consideration of admission/observation: Escalation of care including admission/observation considered Consult Healthcare Provider Management of the patient was discussed with: [place] (Cardiology) Lab Data [facility] Lab Attestation statement: I reviewed the patient's lab results. 07/16/24 17:32 07/16/24 17:32 Labs: Lab Results 07/16/24 Range/Units 17:32 WBC 11.9 H (4.8-10.8) X10*3/uL RBC 4.62 (4.20-5.50) X10*6/uL Hgb 13.9 (12.0-16.0) g/dl Hct 39.9 (37.0-47.0) % MCV 86.4 (80.0-98.0) fL MCH 30.1 (27.0-33.0) pg MCHC 34.8 (31.0-35.0) g/dl RDW 13.0 (11.0-16.0) % Plt Count 239 (160-400) X10*3/uL MPV 9.6 (9.4-12.3) fL Immature Gran % (Auto) 0.9 H (0.0-0.4) % Neut % (Auto) 64.9 (45-73) % Lymph % (Auto) 23.5 (20-40) % Price % (Auto) 8.7 (2-11) % Eos % (Auto) 1.3 (0-4) % Baso % (Auto) 0.7 (0-2) % Lymph # (Auto) 2.8 (1.2-4.9) X10*3/uL Price # (Auto) 1.0 (0.1-1.2) X10*3/uL Eos # (Auto) 0.2 (0.0-0.4) X10*3/uL Baso # (Auto) 0.1 (0.0-0.2) X10*3/uL Abs Immat Gran (auto) 0.11 H (0.00-0.03) X10*3/uL Absolute Neuts (auto) 7.7 (2.0-8.3) x10*3/uL Absolute Nucleated RBC 0.000 (0.0-0.012) X10*3/uL Nucleated RBC % (auto) 0.0 (0.0-0.2) /100WBC Sodium 140 (135-145) mmol/L Potassium 3.4 (3.3-5.1) mmol/L Chloride 107 (96-108) mmol/L Carbon Dioxide 24 (22-29) mmol/L Anion Gap 12 (12-20) BUN 20 H (9-16) mg/dL Creatinine 0.89 (0.5-1.4) mg/dL Estim Creat Clear Calc 51.9 Estimated GFR > 60 Random Glucose 129 H (60-115) mg/dL Calcium 8.8 D (8.4-10.2) mg/dL Troponin I High Sens 11.8 (<3.5-17.0) ng/L B-Natriuretic Peptide 54 (<100) pg/mL TSH 0.10 L (0.32-4.0) uIU/mL Free T4 1.57 (0.71-1.85) ng/dL Urine Color Yellow Urine Appearance Clear Urine pH 7.0 (5.0-9.0) Ur Specific [place] <= 1.005 (1.005-1.025) Urine Protein Negative (Neg-Trace) mg/dL Urine Glucose (UA) Negative (Negative) mg/dL Urine Ketones Negative (Negative) mg/dL Urine Blood Negative (Negative) Urine Nitrite Negative (Negative) Ur Leukocyte Esterase Moderate (2+) H (Negative) Urine RBC 0-2 (0-2) /HPF Urine WBC 6-10 H (0-5) /HPF Ur Squamous Epith Cells 0-2 (0-2) /HPF Urine Bacteria None Seen (None Seen) Hyaline Casts 0-2 (0-2) /LPF Influenza Type A (PCR) NEGATIVE (Negative) Influenza Type B (PCR) NEGATIVE (Negative) RSV RNA Qual (PCR) NEGATIVE (Negative) SARS-CoV-2 RNA (RT-PCR) NEGATIVE (Negative) Independent Interpretation I performed an independent interpretation of an: EKG (My interpretation patient's EKG showed a sinus rhythm heart rate is 70 AR QRS QTC normal no acute ST segment elevation noted.) Independent Historian Clinical information obtained from an independent historian. History obtained from or confirmed by: Other (Family) External Record Review External record reviewed: Inpatient record Chronic Conditions History of coronary artery disease Discharge Plan Discharge Clinical Impression: Nonsustained supraventricular tachycardia Patient Disposition: Home, Self-Care Instructions: Supraventricular Tachycardia (ED) Prescriptions: New metoprolol tartrate 25 mg tablet 25 mg PO BID Qty: 30 0RF No Action albuterol sulfate [ProAir HFA] 90 mcg/actuation HFA aerosol inhaler 2 inh inhalation Q6H PRN (Reason: shortness of breath or wheezing) Qty: 8.5 2RF citalopram 40 mg tablet 40 mg PO DAILY Qty: 90 1RF levothyroxine 137 mcg tablet 137 mcg PO DAILY Qty: 90 1RF lisinopril-hydrochlorothiazide 20-25 mg tablet 1 tab PO DAILY Qty: 90 1RF atorvastatin 10 mg tablet 10 mg PO DAILY Qty: 90 1RF trazodone 100 mg tablet 100 mg PO BEDTIME PRN (Reason: insomnia) Qty: 90 0RF multivitamin Tablet 1 tab PO DAILY omeprazole 20 mg capsule,delayed release(DR/EC) 20 mg PO DAILY docusate sodium 100 mg capsule 100 mg PO DAILY albuterol sulfate 2.5 mg /3 mL (0.083 %) solution for nebulization 2.5 mg inhalation Q4-6H PRN (Reason: shortness of breath or wheezing) Qty: 75 1RF N2-jxeypuu-tnax-T5-qlynol-GM 990-3-01-5-1.5 mg tablet PO cholecalciferol (vitamin D3) 25 mcg (1,000 unit) capsule 25 mcg PO DAILY aspirin 81 mg tablet,delayed release (DR/EC) 81 mg PO DAILY hydrochlorothiazide 25 mg tablet 25 mg PO DAILY tramadol 50 mg tablet 100 mg PO TID PRN (Reason: pain) Qty: 180 2RF Referrals: Josh Anne MD [Physician] - 07/18/24 Print Language: Dominican
--- NOTE | 2024-07-16 17:37 | PC.NURSE ---
Pt BIBA from home, called for EMS due to sudden onset dizziness and SOB. When EMS arrived, found pts HR to be in 70s NSR, as extricating, elevated to 170s, SVT. Pt administered 6mg then 12 mg of adenosine with conversion to NSR and pt feeling better. Pt is alert and oriented, breathing even and unlabored but does have some increases in RR. Skin warm and dry. NSR on bedside clinical research monitor. VSS. IV from EMS in right forearm, 20G. Denies pain, CP, recent illnesses.
[2024-07-16 17:42] LABS: MANUAL DIFF FLAG NO
[2024-07-16 17:58] LABS: Appearance Urine Clear; Color Urine Yellow; Glucose Urine UA Negative (Negative); Leukocyte Esterase Urine Moderate (2+) (Negative); Nitrite Urine Negative (Negative); Specific Gravity - Urine <= 1.005 (1.005-1.025); UMIC TRIGGER UACC YES; Urine Blood Negative (Negative); Urine Ketones Negative (Negative); Urine Protein Negative (Neg-Trace)
[2024-07-16 18:02] LABS: Anion Gap 12 (12-20); Blood Urea Nitrogen 20 mg/dL (9-16); Calcium 8.8 mg/dL (8.4-10.2); Carbon Dioxide 24 mmol/L (22-29); Chloride 107 mmol/L (96-108); Creatinine Clr Calc Pharmacy 51.9; Estimated Glomerular Filt Rate > 60; Glucose Random 129 mg/dL (60-115); Potassium 3.4 mmol/L (3.3-5.1); Sodium 140 mmol/L (135-145)
[2024-07-16 18:03] LABS: B Type Natriuretic Peptide 54 pg/mL (<100); Bacteria Urine None Seen (None Seen); Hyaline Casts Urine 0-2 /LPF (0-2); RBC Urine 0-2 /HPF (0-2); Squamous Epithelial Cell Urine 0-2 /HPF (0-2); UACC Culture Trigger YES
[2024-07-16 18:04] LABS: Troponin-I High Sensitivity 11.8 ng/L (<3.5-17.0)
[2024-07-16 18:13] LABS: Basophils Absolute Auto 0.1 X10*3/uL (0.0-0.2); Basophils Percent Auto 0.7 % (0-2); Eosinophils Absolute Auto 0.2 X10*3/uL (0.0-0.4); Eosinophils Percent Auto 1.3 % (0-4); Hematocrit 39.9 % (37.0-47.0); Hemoglobin 13.9 g/dl (12.0-16.0); Imm Gran Abs Auto 0.11 X10*3/uL (0.00-0.03); Imm Gran Pct Auto 0.9 % (0.0-0.4); Lymphocytes Absolute Auto 2.8 X10*3/uL (1.2-4.9); Lymphocytes Percent Auto 23.5 % (20-40); Mean Corpuscular HGB Conc 34.8 g/dl (31.0-35.0); Mean Corpuscular Hemoglobin 30.1 pg (27.0-33.0); Mean Corpuscular Volume 86.4 fL (80.0-98.0); Mean Platelet Volume 9.6 fL (9.4-12.3); Monocytes Percent Auto 8.7 % (2-11); Neutrophils Absolute Auto 7.7 x10*3/uL (2.0-8.3); Neutrophils Percent Auto 64.9 % (45-73); Platelet Count 239 X10*3/uL (160-400); Red Blood Count 4.62 X10*6/uL (4.20-5.50); White Blood Count 11.9 X10*3/uL (4.8-10.8)
[2024-07-16 18:22] LABS: Influenza A PCR NEGATIVE (Negative); Influenza B PCR NEGATIVE (Negative); Resp Syncy Virus RNA Qual PCR NEGATIVE (Negative); SARS COV2 PCR INHOUSE NEGATIVE (Negative)
[2024-07-16 19:13] LABS: Free T4 (Free Thyroxine) 1.57 ng/dL (0.71-1.85)
[2024-07-16 19:29] VITALS: BP 136/72; PULSE 74; RESP 20; TEMP 36.9; O2SAT 98
--- NOTE | 2024-07-16 20:17 | PC.NURSE ---
Pt sitting up in bed, no signs of distress. Pts family at bedside. Pts family requesting update. Provider notified and reports will be d/c pt. Pts family notified and aware of providers plan Plan of care ongoing.
--- NOTE | 2024-07-16 22:27 | PC.NURSE ---
This nurse only discharge pt, reviewed discharge instruction with pt, pt verbalized understanding, this nurse wheeled out pt to car, notified Damaris Louis
[2024-07-16 22:29] VITALS: BP 146/68; PULSE 72; RESP 16; TEMP 36.9; O2SAT 97
== END 2024-07-16 22:30 | disposition home or self-care (01) ==
PROVIDERS: Emergency Provider Emergency Medicine Emergency Medical Services; PCP Internal Medicine
DX: I47.20 Ventricular tachycardia, unspecified (principal); R42 Dizziness and giddiness; I10 Essential (primary) hypertension; I25.2 Old myocardial infarction; E11.9 Type 2 diabetes mellitus without complications; E03.9 Hypothyroidism, unspecified; J44.9 Chronic obstructive pulmonary disease, unspecified; I25.10 Atherosclerotic heart disease of native coronary artery without angina pectoris; Z79.899 Other long term (current) drug therapy; Z03.818 Encounter for observation for suspected exposure to other biological agents ruled out
CPT/HCPCS: 0241U; 36415; 80048; 81001; 83880; 84439; 84443; 84484; 85025; 87086; 93005; 99283; 99285

== ENCOUNTER → 2024-07-16 17:04 | Outpatient (BNV) | payer OTHER, SELFPAY | PROVIDERS: Emergency Provider Emergency Medicine Emergency Medical Services; PCP Internal Medicine; Visit Provider Internal Medicine | DX: R42 Dizziness and giddiness (principal) | CPT/HCPCS: 93010 ==

== ENCOUNTER 2024-07-28 10:02 | Outpatient (AMB) | payer OTHER, SELFPAY ==
[2024-07-28 10:08] VITALS: BP 140/62; PULSE 53; BMI 27.6
--- NOTE | 2024-07-28 10:08 | MHC.OFFVIS ---
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 Accompanied by: Self / Same As Patient Allergies amoxicillin [Augmentin] Adverse Reaction (Unknown, Verified 07/16/24 17:00) N/V high dose influenza Adverse Reaction (Uncoded 07/16/24 17:00) Hives Medication List - Last Reconciled 07/28/24 by Josh Anne MD albuterol sulfate 2.5 mg (3 mL) inhalation Q4-6H PRN albuterol sulfate 90 mcg/actuation (ProAir HFA) 2 inhalations inhalation Q6H PRN aspirin 81 mg PO DAILY atorvastatin 10 mg PO DAILY [id number] mg tabs PO cholecalciferol (vitamin D3) 25 mcg PO DAILY citalopram 40 mg PO DAILY docusate sodium 100 mg PO DAILY hydrochlorothiazide 25 mg PO DAILY levothyroxine 137 mcg PO DAILY lisinopril-hydrochlorothiazide 20-25 mg 1 tab PO DAILY metoprolol tartrate 25 mg PO BID multivitamin 1 tab PO DAILY omeprazole 20 mg PO DAILY tramadol 100 mg (2 x 50 mg) PO TID PRN trazodone 100 mg PO BEDTIME PRN HPI Comments Details: Estrella returns for follow-up. In the past, she was seen regarding coronary artery disease. History of heart attack about 25+ years ago with PCI but unknown details. She was seen about 2 years ago but at that time she stated that she would just see her own PCP. However, recently she had an episode of palpitations leading to ER visit and per description, thought to have had SVT episode. Then put on beta-blockers. She states that she gets some palpitations intermittently but nothing profound. No other complaints like angina. [facility] Medical History Trochanteric bursitis, right hip Chronic insomnia Hx of myocardial infarction Myocardial infarct Major depression in full remission Type 2 diabetes mellitus without complication, without long-term current use of insulin Essential hypertension Acquired hypothyroidism CAD (coronary artery disease) COPD (chronic obstructive pulmonary disease) Surgical History Hx of colonoscopy History of heart artery stent History of total hysterectomy Family History Father Parkinson disease Scoliosis Cancer Mother Colon cancer Maternal Grandmother No problems noted. Maternal Grandfather No problems noted. Paternal Grandmother Lung cancer Paternal Grandfather Alcoholism Diabetes mellitus Social History Housing: House Alcohol intake: current Alcohol intake frequency: a few times a week Patient Tobacco Use Status: Former Tobacco user Tobacco use type: Smokeless Tobacco Years Smoked: 14 e-Cigarette/Vaping Use: Currently Using Substance Use Type: Marijuana service: No Current occupational status: retired Cognitive needs: No Hearing needs: No Vision needs: Yes Review of Systems Const Denies chills, Denies fatigue, Denies fever(s), Denies weight gain and Denies weight loss ENT Denies dizziness Card Denies chest pain, Denies leg edema, Denies lightheadedness, Denies palpitations, Denies dyspnea on exertion, Denies orthopnea and Denies other Resp Denies cough and Denies dyspnea on exertion GI Denies hematochezia and Denies change in stool character Musc Denies abnormal gait, Denies muscle weakness, Denies numbness, Denies radiating pain into limb and Denies tingling Neuro Denies abnormal gait, Denies dizziness, Denies numbness and Denies tingling Endo Denies fatigue and Denies palpitations Physical Exam Vital Signs: Last Vital Signs Pulse 53 07/28/24 10:08 BP 140/62 H 07/28/24 10:08 BMI result Body Mass Index 27.6 Const General: comfortable and no acute distress Orientation/consciousness: patient oriented x3 HEENT Other: Unremarkable Head: Yes normal to inspection Neck Neck: Yes normal visual inspection Chest Chest palpation & inspection: normal inspection of the chest Resp Auscultation: clear to auscultation bilaterally Cardio Palpation: normal PMI Heart sounds: S1 normal heart sound present, S2 normal heart sound present, no gallops, no murmurs and no rubs GI Palpation (GI): Soft to palpation Back/Spine/Pelvis Other: unremarkable Skin General skin exam: no rashes or lesions noted Neuro General: patient oriented x3 Extrem General: Yes normal to inspection Psych Mental Status: mental status grossly normal Assessment & Plan Assessment & Plan (1) SVT (supraventricular tachycardia): Code(s): I47.10 - Supraventricular tachycardia, unspecified Category: Medical (2) CAD (coronary artery disease): Code(s): I25.10 - Atherosclerotic heart disease of [place] coronary artery without angina pectoris Category: Medical Qualifiers: Coronary Disease-Associated Artery/Lesion type: [place] artery [place] vs. transplanted heart: [place] heart Associated angina: without angina Qualified Code(s): I25.10 - Atherosclerotic heart disease of [place] coronary artery without angina pectoris Plan EMS records reviewed. Thought to have had NSVT episode with ventricular rate of 170/Min. Then received IV adenosine 6 mg followed by 12 mg. EKG available from the ER shows only sinus rhythm and hence we do not have the actual tracing from the SVT. Overall, may remain on beta-blockers for the time being. We will get an echocardiogram and Holter monitor for further evaluation. If recurrent episodes, may consider EP evaluation but we need to identify the rhythm 1st. With regard to the coronary disease itself, remote history from more than 25 years ago. She seems to be on reasonable regimen including aspirin, statins and does not have any angina. If necessary, we will consider ischemia evaluation. Previously, she did not want anything done. Follow-up in 3 months. Orders: Orders CA echo transthoracic complete Today I47.10 - Supraventricular tachycardia, unspecified ECG 14 day holter monitor Today I47.10 - Supraventricular tachycardia, unspecified, R00.2 - Palpitations Coding Level of Care Code Est Pt Level 4 (95751) Diagnoses SVT (supraventricular tachycardia) I47.10 Coronary artery disease involving [place] coronary artery of [place] heart without angina pectoris I25.10 Coronary Disease-Associated Artery/Lesion type: [place] artery [place] vs. transplanted heart: [place] heart Associated angina: without angina
== END 2024-07-28 10:28 | disposition home or self-care (01) ==
LOC: HO.HCS 10:02
PROVIDERS: PCP Internal Medicine; Visit Provider Internal Medicine
DX: I47.10 Supraventricular tachycardia, unspecified (principal); I25.10 Atherosclerotic heart disease of native coronary artery without angina pectoris
CPT/HCPCS: 99214

== ENCOUNTER → 2024-07-28 10:02 | Outpatient (BNVA) | payer OTHER, SELFPAY | PROVIDERS: PCP Internal Medicine; Visit Provider Internal Medicine | DX: I47.10 Supraventricular tachycardia, unspecified (principal); I25.10 Atherosclerotic heart disease of native coronary artery without angina pectoris; I10 Essential (primary) hypertension | CPT/HCPCS: 99212 ==

== ENCOUNTER 2024-07-29 12:31 | Outpatient (AMB) | payer OTHER, SELFPAY ==
[2024-07-29 12:35] VITALS: BP 126/70; PULSE 50; O2SAT 96; BMI 27.8
--- NOTE | 2024-07-29 12:35 | MHC.PC.OV ---
Vital Signs 07/29/24 12:35 Height 5 ft 4 in Weight 162 lb BMI 27.8 BP 126/70 Blood Pressure Location Lt brachial Position Sitting Pulse 50 Pulse Source Pulse Oximeter Pulse Oximetry (%) 96 Oxygen Delivery Method Room Air Intake Visit Reasons: Annual PE Intake Note: Pt is here today for her PE: Last mammogram 06/12/24, bone density scan 10/11/17, colonoscopy 12/11/18 Allergies amoxicillin [Augmentin] Adverse Reaction (Unknown, Verified 07/29/24 13:09) N/V high dose influenza Adverse Reaction (Uncoded 07/29/24 13:09) Hives Medication List - Last Reconciled 07/29/24 by Loretta Sanchez MD albuterol sulfate 2.5 mg (3 mL) inhalation Q4-6H PRN albuterol sulfate 90 mcg/actuation (ProAir HFA) 2 inhalations inhalation Q6H PRN aspirin 81 mg PO DAILY atorvastatin 10 mg PO DAILY [id number] 839-4-08-5-1.5 mg tabs PO cholecalciferol (vitamin D3) 25 mcg PO DAILY citalopram 40 mg PO DAILY docusate sodium 100 mg PO DAILY levothyroxine 137 mcg PO DAILY lisinopril-hydrochlorothiazide 20-25 mg 1 tab PO DAILY metoprolol tartrate 25 mg PO BID 90 days multivitamin 1 tab PO DAILY omeprazole 20 mg PO DAILY tramadol 100 mg (2 x 50 mg) PO TID PRN trazodone 100 mg PO BEDTIME PRN Tobacco use date assessed: 07/29/24 Fall risk assessment: No Falls in past year Last assessed Fall Risk: 07/29/24 Dental Screening Dental Screen Date: 07/29/24 Did you have a dental visit in the last 12 months?: No Did you have a dental problem in the last 6 months where you did not have access to dental care?: No Was dental information given to patient?: Patient has dentist HPI Annual PE HPI Details 79 -year-old lady with hyperlipidemia, type 2 diabetes mellitus controlled by diet, has acquired hypothyroidism, hypertension, COPD, and history of depression, here today for her physical exam. Patient states that she keeps forgetting her thyroid medication in the morning, has been doubling up on her dose when she remembers to take it. She is up-to-date with her screening mammogram which was last done 06/12/24, bone density scan done 10/11/17 which showed normal results, and up todate with her colonoscopy which was done 12/11/18 and was to be her last one, as no further screening necessary per [facility] Medical History Trochanteric bursitis, right hip Chronic insomnia Hx of myocardial infarction Myocardial infarct Major depression in full remission Type 2 diabetes mellitus without complication, without long-term current use of insulin Essential hypertension Acquired hypothyroidism CAD (coronary artery disease) COPD (chronic obstructive pulmonary disease) Surgical History Hx of colonoscopy History of heart artery stent History of total hysterectomy Family History Father Parkinson disease Scoliosis Cancer Mother Colon cancer Maternal Grandmother No problems noted. Maternal Grandfather No problems noted. Paternal Grandmother Lung cancer Paternal Grandfather Alcoholism Diabetes mellitus Social History Housing: House Alcohol intake: current Alcohol intake frequency: a few times a week Patient Tobacco Use Status: Former Tobacco user Tobacco use type: Smokeless Tobacco Years Smoked: 14 e-Cigarette/Vaping Use: Currently Using Substance Use Type: Marijuana service: No Current occupational status: retired Cognitive needs: No Hearing needs: No Vision needs: Yes Questionnaire Thrive Questionnaire Date Thrive assessed: 12/18/23 NADIA-7 AMB Questionnaire NADIA-7 Date NADIA - 7 assessed: 12/18/23 Source: Developed by Drs. Otf Mandujano, Soraya Caba, Sim Villa and colleagues, with an educational kenan from [employer]. Review of Systems Const Reports no additional complaints Eyes Details: Overdue for eye exam previously was being seen by Dr. Garcia ENT Details: Gets dental cleaning every year Denies dizziness Card Denies chest pain, Denies leg edema, Denies lightheadedness, Denies palpitations and Denies dyspnea on exertion Resp Denies cough and Denies dyspnea on exertion GI Denies hematochezia and Denies change in stool character Reports no additional complaints and Denies nipple discharge Musc Denies abnormal gait, Denies muscle weakness, Denies numbness, Denies radiating pain into limb and Denies tingling Skin/Breast Denies breast swelling, Denies breast pain, Denies breast mass and Denies nipple discharge Neuro Denies abnormal gait, Denies dizziness, Denies numbness and Denies tingling Endo Denies palpitations Hunter/Lymph Reports no additional complaints Aller/Immun Reports no additional complaints Physical exam (Primary Care) Vital Signs: Last Vital Signs Pulse 50 07/29/24 12:35 BP 126/70 07/29/24 12:35 Pulse Ox 96 07/29/24 12:35 Oxygen Delivery Method Room Air 07/29/24 12:35 BMI result Body Mass Index 27.8 Tobacco/Smoking Status: Tobacco use Status Tobacco use date assessed 07/29/24 07/29/24 12:37 Patient Tobacco Use Status Former Tobacco user 07/29/24 12:37 Tobacco use type Smokeless Tobacco 07/29/24 12:37 e-Cigarette/Vaping Use Currently Using 07/29/24 12:37 Thrive Assessment: Date of Thrive Assessment Date Thrive assessed 12/18/23 07/29/24 12:37 Const Other: Alert oriented x3 no acute distress noted ambulatory with normal gait Orientation/consciousness: patient oriented x3 HENWY Head: Yes normocephalic Ears: external ears normal, TM's normal bilaterally and EAC's normal General nose exam: Normal external nose present and No nasal discharge present Face and sinus: Yes face symmetric Mouth: Normal oral and palatal mucosa present, oropharynx normal and moist mucous membranes Teeth and gingiva: dentures Eyes General: appearance normal, both eyes and all related structures Neck Neck: Yes full ROM, Yes no lymphadenopathy and Yes supple Chest Breast/axilla palpation: normal palpation of the breasts Resp Auscultation: clear to auscultation bilaterally Cardio Other: S1-S2 present regular rate and rhythm GI Other: Normal bowel sounds, soft, nontender, with no mass palpated General: Yes no CVA tenderness Back/Spine/Pelvis Back: no CVA tenderness Skin General skin exam: no rashes or lesions noted Neuro General: patient oriented x3, gait normal, tone normal, moves all extremities, Normal light touch and pain sensation and no focal motor deficits Extrem General: Yes full ROM and Yes no joint enlargement Psych Appearance: grossly normal and well kempt Mental Status: mental status grossly normal Speech and movement: Normal speech and movement present Affect: normal affect Attitude: cooperative Thought process: Normal thought process present Office Procedures Flu Questionnaire Does the patient have a severe egg allergy?: No Does the patient have severe life threatening allergies?: No Does the patient have a fever or illness today?: No Has the patient ever had Guillain-[place] Syndrome?: No Has the patient ever had any past reaction to a flu shot?: No Immunizations Fluarix Triv [id number] (PF) 45 mcg (15 mcg x 3)/0.5 mL IM syringe Performing Provider: Loretta Sanchez MD Performing Location: [facility] Administered by: Marycarmen Yeboah CMA on 07/29/24 13:27 Dose Route Admin Location Dispensed Lot Number Expiration Date NDC Carbide Grinder 0.5 mL IM Left Deltoid 0.5 mL [id number] 03/16/25 [id number] expressor software VIS Given Date VIS Provided VIS Publication Date 07/29/24 Single Vaccine 21 Eligibility Eligibility Date Funding Source Not [facility] Eligible 07/29/24 Private Results Reviewed Results Reviewed: Name: Estrella De La Torre Age/Sex: 79/F : 1945 Unit#: [id number] Attend Dr: Anna Desir MD Re07/16/24 Status: DEP ER Location: .ED Disch: SPEC : [id number] YASH: 07/16/24 STATUS: COMP REQ : [id number] RECD: 07/16/[address]: Anna Desir MD COMP: 07/16/24 ENTERED: 07/16/[address]: Physician,Unknown ORDERED: CBC Auto Diff Test Result Flag Reference WBC 11.9 H 4.8-10.8 X10*3/uL RBC 4.62 4.20-5.50 X10*6/uL HGB 13.9 12.0-16.0 g/dl HCT 39.9 37.0-47.0 % MCV 86.4 80.0-98.0 fL MCH 30.1 27.0-33.0 pg MCHC 34.8 31.0-35.0 g/dl RDW 13.0 11.0-16.0 % PLT 239 160-400 X10*3/uL MPV 9.6 9.4-12.3 fL Neut Pct Auto 64.9 45-73 % ImGran Pct Auto 0.9 H 0.0-0.4 % Lymp Pct Auto 23.5 20-40 % Newton Pct Auto 8.7 2-11 % Eos Pct Auto 1.3 0-4 % Baso Pct Auto 0.7 0-2 % NRBC Pct Auto 0.0 0.0-0.2 /100WBC ANC Neut Abs # 7.7 2.0-8.3 x10*3/uL ImGran Abs Auto 0.11 H 0.00-0.03 X10*3/uL Lymph Abs Auto 2.8 1.2-4.9 X10*3/uL Newton Abs Auto 1.0 0.1-1.2 X10*3/uL Eos Abs Auto 0.2 0.0-0.4 X10*3/uL Baso Abs Auto 0.1 0.0-0.2 X10*3/uL NRBC Abs Auto 0.000 0.0-0.012 X10*3/uL Name: Estrella De La Torre Age/Sex: 79/F : 1945 Unit#: [id number] Attend Dr: Anna Desir MD Re07/16/24 Status: [facility]P [facility] Disch: SPEC : [id number] YASH: 07/16/24 STATUS: COMP REQ : [id number] RECD: 07/16/[address]: Anna Desir MD COMP: 07/16/24 ENTERED: 07/16/[address]: Physician,Unknown ORDERED: BMP, Free T4, TSH Rflx Test Result Flag Reference Sodium 140 135-145 mmol/L Potassium 3.4 3.3-5.1 mmol/L CL 107 96-108 mmol/L CO2 24 22-29 mmol/L Gap 12 12-20 BUN 20 H 9-16 mg/dL Creat 0.89 0.5-1.4 mg/dL Estimated CrCl 51.9 Provided height and weight: 162.56 cm, 75.7 kg. eGFR (calculated from the MDRD study equation) and eCrCl (calculated from the Cockcroft-Gault equation) are based on different parameters and may not yield comparable results. If eCrCl result is absurd, please check patient's height/weight. EGFR > 60 NOTE: For -[place] individuals, multiply the result by 1.210. Chronic Kidney Disease: Estimated GFR < 60 mL/min/1.73m2 Severe Kidney Disease: Estimated GFR < 15 mL/min/1.73m2 Glucose, Random 129 H 60-115 mg/dL CA 8.8 # 8.4-10.2 mg/dL Free T4 1.57 0.71-1.85 ng/dL TSH 0.10 L 0.32-4.0 uIU/mL Laboratory Tests 12/17/23 09:05 Hemoglobin A1c % 5.7 Name: Estrella De La Torre Age/Sex: 78/F : 1945 Unit#: [id number] Attend Dr: Loretta Sanchez MD Re12/17/23 Status: DEP REF Location: [facility] Disch: SPEC : [id number] YASH: 12/17/23 STATUS: COMP REQ : [id number] RECD: 12/17/23-[address]: Loretta Sanchez MD COMP: 12/17/23 ENTERED: 12/17/[address]: ORDERED: Met Prof Fast, AST, ALT, Lipid Panel, Vitamin D 25-OH, Free T4, TSH Test Result Flag Reference Sodium 140 135-145 mmol/L Potassium 3.5 3.3-5.1 mmol/L CL 105 96-108 mmol/L CO2 27 22-29 mmol/L Gap 12 12-20 BUN 16 9-16 mg/dL Creat 0.79 0.5-1.4 mg/dL EGFR > 60 NOTE: For -[place] individuals, multiply the result by 1.210. Chronic Kidney Disease: Estimated GFR < 60 mL/min/1.73m2 Severe Kidney Disease: Estimated GFR < 15 mL/min/1.73m2 FBS 124 H 60-99 mg/dL A fasting glucose from 100-125 mg/dl is considered impaired (pre-diabetes). CA 10.2 8.4-10.2 mg/dL AST (GOT) 19 5-31 U/L ALT (GPT) 18 0-31 U/L Triglyceride 116 <150 mg/dL Desirable Triglyceride: less than 150 mg/dL Borderline High Triglyceride 150-199 mg/dL High Triglyceride: 200-499 mg/dL Very High Triglyceride: greater than or equal to 5OO mg/dL Cholesterol 171 <200 mg/dL Desirable Cholesterol: less than 200 mg/dL Borderline High Cholesterol: 200-239 mg/dL High Cholesterol: greater than 239 mg/dL LDL Calculated 81 <100 mg/dL Desirable LDL: less than 100 mg/dL Near Optimal/Above Optimal LDL: 110-129 mg/dL Borderline High LDL: 130-159 mg/dL High LDL: 160-189 mg/dL Very High LDL: greater than or equal to 190 mg/dL HDL 67 >40 mg/dL Desirable HDL: greater than 40 mg/dL Note: This HDL assay may give artificially low results in patients with liver disease. Vit D 25-OH Tot 57.0 >30 ng/mL Health Based Reference Values* < 20 ng/mL Deficient 20-30 ng/mL Insufficient > 30 ng/mL Sufficient *Stacia PARKER. N Engl J Med. 2007;357:266-280 Care must be taken in interpreting Vitamin D results from different laboratories and methodologies. Published data demonstrated that results from patients undergoing hemodialysis may show a negative bias when tested with various automated 25-OH vitamin D assays when compared to LC-MS/MS. When testing samples from patients whose predominant form of Vitamin D is Vitamin D2, such as patients receiving Vitamin D2 supplementation, results that are subtherapeutic should be confirmed with another method such as LC-MS/MS. Free T4 1.29 0.71-1.85 ng/dL TSH 3rd Gen. 0.14 L 0.32-4.0 uIU/mL TSH 3rd Generation ([facility]) Coding Level of Care Code Est Pt Prev Care >65y(05568) Diagnoses Annual visit for general adult medical examination with abnormal findings Z00.01 Encounter for screening for osteoporosis Z13.820 COPD (chronic obstructive pulmonary disease) J44.9 Coronary artery disease involving [place] coronary artery of [place] heart without angina pectoris I25.10 Associated angina: without angina Coronary Disease-Associated Artery/Lesion type: [place] artery [place] vs. transplanted heart: [place] heart Acquired hypothyroidism E03.9 Essential hypertension I10 Type 2 diabetes mellitus without complication, without long-term current use of insulin E11.9 Recurrent major depressive disorder, in full remission F33.42 Major depression recurrence: recurrent Other and unspecified hyperlipidemia E78.5 Lumbosacral spondylosis with radiculopathy M47.27 Assessment & Plan Assessment & Plan (1) Annual visit for general adult medical examination with abnormal findings: Code(s): Z00.01 - Encounter for general adult medical examination with abnormal findings Plan: Reviewed recent fasting lab results with patient. Take adequate calcium in diet and vitamin-D 3 at 2000 IU per cap once a day, in addition to weight-bearing exercises to help maintain good muscle tone and weight control. Instructed to do self-breast exam, and continue with yearly mammogram, ordered together with a bone density scan. Up-to-date with her vaccinations. No longer needs screening colonoscopies per GI. Flu vaccine given today (2) Encounter for screening for osteoporosis: Code(s): Z13.820 - Encounter for screening for osteoporosis Plan: Ordered a repeat bone density scan (3) COPD (chronic obstructive pulmonary disease): Code(s): J44.9 - Chronic obstructive pulmonary disease, unspecified Category: Medical Plan: Has ProAir inhaler which she takes as needed for episodes of bronchospasm and wheezing (4) CAD (coronary artery disease): Code(s): I25.10 - Atherosclerotic heart disease of [place] coronary artery without angina pectoris Category: Medical Qualifiers: Associated angina: without angina Coronary Disease-Associated Artery/Lesion type: [place] artery [place] vs. transplanted heart: [place] heart Qualified Code(s): I25.10 - Atherosclerotic heart disease of [place] coronary artery without angina pectoris Plan: Continue aspirin 81 mg daily (5) Acquired hypothyroidism: Code(s): E03.9 - Hypothyroidism, unspecified Category: Medical Plan: Continue with levothyroxine 137 mcg daily (6) Essential hypertension: Code(s): I10 - Essential (primary) hypertension Category: Medical Plan: Blood pressure at goal of less than 130/80. Continue lisinopril-HCTZ 20-25 mg daily and metoprolol tartrate 20 mg 1 tab twice a day. Reinforced importance of following a low sodium diet, getting regular exercise, and lowering stress levels. (7) Type 2 diabetes mellitus without complication, without long-term current use of insulin: Code(s): E11.9 - Type 2 diabetes mellitus without complications Category: Medical Plan: Diabetes mellitus controlled, currently not on any medications at present time controlled through diet and exercise (8) Major depression in full remission: Code(s): F32.5 - Major depressive disorder, single episode, in full remission Category: Medical Qualifiers: Major depression recurrence: recurrent Qualified Code(s): F33.42 - Major depressive disorder, recurrent, in full remission Plan: Continue citalopram 40 mg daily (9) Other and unspecified hyperlipidemia: Code(s): E78.5 - Hyperlipidemia, unspecified Category: Medical Plan: Reviewed recent fasting lipid profile with patient with levels within normal limit . Continue atorvastatin 10 mg daily , in addition to adherence to low-cholesterol diet and regular exercise, at least 30 minutes 3 to 4 times a week. Advised patient to make healthy food choices, eat more fruits, vegetables, whole grains, wild caught fish and low-fat dairy. Limit amount of meat and fried or fatty food products, as well as processed foods and fast foods. (10) Lumbosacral spondylosis with radiculopathy: Code(s): M47.27 - Other spondylosis with radiculopathy, lumbosacral region Category: Medical Plan: Takes tramadol as needed, followed by Rheumatology Orders: Orders XR DEXA axial skeleton 06/17/25 Z12.31 - Encounter for screening mammogram for malignant neoplasm of breast, Z13.820 - Encounter for screening for osteoporosis, Z78.0 - Asymptomatic menopausal state MM tomosynthesis screening BI 06/17/25 Z12.31 - Encounter for screening mammogram for malignant neoplasm of breast, Z13.820 - Encounter for screening for osteoporosis, Z78.0 - Asymptomatic menopausal state Hemoglobin A1c 10/18/24 E03.9 - Hypothyroidism, unspecified, E11.9 - Type 2 diabetes mellitus without complications, E78.5 - Hyperlipidemia, unspecified, I10 - Essential (primary) hypertension, I25.10 - Atherosclerotic heart disease of [place] coronary artery without angina pectoris, J44.9 - Chronic obstructive pulmonary disease, unspecified, M47.27 - Other spondylosis with radiculopathy, lumbosacral region, Z00.01 - Encounter for general adult medical examination with abnormal findings, Z13.820 - Encounter for screening for osteoporosis, Z71.89 - Other specified counseling Thyroid Stimulating Hormone 10/18/24 E03.9 - Hypothyroidism, unspecified, E11.9 - Type 2 diabetes mellitus without complications, E78.5 - Hyperlipidemia, unspecified, I10 - Essential (primary) hypertension, I25.10 - Atherosclerotic heart disease of [place] coronary artery without angina pectoris, J44.9 - Chronic obstructive pulmonary disease, unspecified, M47.27 - Other spondylosis with radiculopathy, lumbosacral region, Z00.01 - Encounter for general adult medical examination with abnormal findings, Z13.820 - Encounter for screening for osteoporosis, Z71.89 - Other specified counseling Alanine Aminotransferase 10/18/24 E03.9 - Hypothyroidism, unspecified, E11.9 - Type 2 diabetes mellitus without complications, E78.5 - Hyperlipidemia, unspecified, I10 - Essential (primary) hypertension, I25.10 - Atherosclerotic heart disease of [place] coronary artery without angina pectoris, J44.9 - Chronic obstructive pulmonary disease, unspecified, M47.27 - Other spondylosis with radiculopathy, lumbosacral region, Z00.01 - Encounter for general adult medical examination with abnormal findings, Z13.820 - Encounter for screening for osteoporosis, Z71.89 - Other specified counseling Vitamin D 25-OH Total 10/18/24 E03.9 - Hypothyroidism, unspecified, E11.9 - Type 2 diabetes mellitus without complications, E78.5 - Hyperlipidemia, unspecified, I10 - Essential (primary) hypertension, I25.10 - Atherosclerotic heart disease of [place] coronary artery without angina pectoris, J44.9 - Chronic obstructive pulmonary disease, unspecified, M47.27 - Other spondylosis with radiculopathy, lumbosacral region, Z00.01 - Encounter for general adult medical examination with abnormal findings, Z13.820 - Encounter for screening for osteoporosis, Z71.89 - Other specified counseling Free T4 (Free Thyroxine) 10/18/24 E03.9 - Hypothyroidism, unspecified, E11.9 - Type 2 diabetes mellitus without complications, E78.5 - Hyperlipidemia, unspecified, I10 - Essential (primary) hypertension, I25.10 - Atherosclerotic heart disease of [place] coronary artery without angina pectoris, J44.9 - Chronic obstructive pulmonary disease, unspecified, M47.27 - Other spondylosis with radiculopathy, lumbosacral region, Z00.01 - Encounter for general adult medical examination with abnormal findings, Z13.820 - Encounter for screening for osteoporosis, Z71.89 - Other specified counseling Lipid Panel 10/18/24 E03.9 - Hypothyroidism, unspecified, E11.9 - Type 2 diabetes mellitus without complications, E78.5 - Hyperlipidemia, unspecified, I10 - Essential (primary) hypertension, I25.10 - Atherosclerotic heart disease of [place] coronary artery without angina pectoris, J44.9 - Chronic obstructive pulmonary disease, unspecified, M47.27 - Other spondylosis with radiculopathy, lumbosacral region, Z00.01 - Encounter for general adult medical examination with abnormal findings, Z13.820 - Encounter for screening for osteoporosis, Z71.89 - Other specified counseling Aspartate Amino Transferase 10/18/24 E03.9 - Hypothyroidism, unspecified, E11.9 - Type 2 diabetes mellitus without complications, E78.5 - Hyperlipidemia, unspecified, I10 - Essential (primary) hypertension, I25.10 - Atherosclerotic heart disease of [place] coronary artery without angina pectoris, J44.9 - Chronic obstructive pulmonary disease, unspecified, M47.27 - Other spondylosis with radiculopathy, lumbosacral region, Z00.01 - Encounter for general adult medical examination with abnormal findings, Z13.820 - Encounter for screening for osteoporosis, Z71.89 - Other specified counseling Basic Metabolic Panel Fasting 10/18/24 E03.9 - Hypothyroidism, unspecified, E11.9 - Type 2 diabetes mellitus without complications, E78.5 - Hyperlipidemia, unspecified, I10 - Essential (primary) hypertension, I25.10 - Atherosclerotic heart disease of [place] coronary artery without angina pectoris, J44.9 - Chronic obstructive pulmonary disease, unspecified, M47.27 - Other spondylosis with radiculopathy, lumbosacral region, Z00.01 - Encounter for general adult medical examination with abnormal findings, Z13.820 - Encounter for screening for osteoporosis, Z71.89 - Other specified counseling Influenza [id number] Immunization 07/29/24 Z23 - Encounter for immunization
== END 2024-07-29 13:30 | disposition home or self-care (01) ==
PROVIDERS: PCP Internal Medicine; Visit Provider Internal Medicine
DX: Z00.00 Encounter for general adult medical examination without abnormal findings (principal); J44.9 Chronic obstructive pulmonary disease, unspecified; E11.9 Type 2 diabetes mellitus without complications; F33.42 Major depressive disorder, recurrent, in full remission; Z13.820 Encounter for screening for osteoporosis; I25.10 Atherosclerotic heart disease of native coronary artery without angina pectoris; E03.9 Hypothyroidism, unspecified; I10 Essential (primary) hypertension; E78.5 Hyperlipidemia, unspecified; M47.27 Other spondylosis with radiculopathy, lumbosacral region

== ENCOUNTER → 2024-07-29 12:31 | Outpatient (BNVA) | payer OTHER, SELFPAY | PROVIDERS: PCP Internal Medicine; Visit Provider Internal Medicine | DX: Z00.01 Encounter for general adult medical examination with abnormal findings (principal); Z23 Encounter for immunization; J44.9 Chronic obstructive pulmonary disease, unspecified; I25.10 Atherosclerotic heart disease of native coronary artery without angina pectoris; E03.9 Hypothyroidism, unspecified; I10 Essential (primary) hypertension; E11.9 Type 2 diabetes mellitus without complications; F33.42 Major depressive disorder, recurrent, in full remission; E78.5 Hyperlipidemia, unspecified; M47.27 Other spondylosis with radiculopathy, lumbosacral region | CPT/HCPCS: 90471; 90656 ==

== ENCOUNTER → 2024-09-24 10:04 | Outpatient (REF) | payer OTHER, SELFPAY ==
--- NOTE | 2024-09-24 10:14 | CA_ITS ---
Transthoracic Echocardiogram Patient (Last, First, Middle): Estrella De La Torre, Gender: Female Date of : 1945 Age: 79 Procedure Date: 09/24/2024 Procedure Type: Transthoracic Echocardiogram Location: OP Height: 162.56 cm Weight: 73.48 kg BSA: 1.79 m2 Heart Rate: bpm BP: 126 / 70 mmHg Software Reliability Engineer: EUGENIA Referring MD: Josh Anne MD Symptoms: I47.10 - Supraventricular tachycardia, unspecified Study Quality: Technically Difficult/Contrast ECG Rhythm: Sinus Conclusions: - The left ventricular systolic function is normal. The visually estimated ejection fraction is between 60-65%. Findings Procedure Information Contrast agent, definity, is being given per protocol without apparent complications. Left Ventricle Normal left ventricular cavity size. There is normal left ventricular wall thickness. The left ventricular systolic function is normal. The visually estimated ejection fraction is between 60-65%. Diastolic function is normal for age. Right Ventricle The right ventricle was not well visualized. Atria Both atria are normal in size. Aortic Valve The aortic valve was not well visualized. Mitral Valve The mitral valve was not well visualized. There is no mitral valve stenosis. No obvious mitral regurgitation. Pulmonic Valve The pulmonic valve is likely normal. Tricuspid Valve There is trace tricuspid valve regurgitation. Tricuspid regurgitation envelope is inadequate for calculation of right ventricular systolic pressure. Great Vessels The aorta was not well visualized. Venous The inferior vena cava is normal in size and collapses greater than 50% with inspiration. Pericardium/Pleural There is no evidence of pericardial effusion. Prior Study Comparison No significant change compared to prior study dated: 01/24/2011. Measurements 2D Linear Measurements IVSd: 0.88 0.6-0.9/0.6-1.0 cm LVIDd: 4.09 3.9-5.3/4.2-5.9 cm LVIDd Index: 2.28 2.4-3.2/2.2-3.1 cm/m2 LVIDs: 2.91 2.0-3.6 cm LVPWd: 0.97 0.7-1.1 cm LA Diam: 2.70 2.7-3.8/3.0-4.0 cm LAIDs Index: 1.51 1.5-2.3 cm/m2 LV Mass: 147.14 67-162/88-224 g LV Mass Index: 82.20 43-95/49-115 g/m2 LVOT Diam: 1.90 3.0+(-)1.3 cm Mitral Valve MV Pk E: 0.84 MV PK A: 0.86 MV Decel Time: 284.00 E/A: 1.00 E'Lateral: 10.00 E'Medial: 8.38 E/E' Med: 10.10 E/E' Lat: 8.40 PHT: 83.00 MVA PHT: 2.65 Decel [place]: 2.97 LVOT LVOT Diam: 1.90 LVOT Area: 2.84 Diastolic Function MV Pk E: 0.84 MV Pk A: 0.86 E/A: 1.00 E'Medial: 8.38 E/E' Med: 10.10 E' Laterial: 10.00 E/E' Lat: 8.40 Tricuspid Valve RA Press: 3.00 Updated in Other Vendor System with Status of Final Josh Anne MD electronically signed on 09/26/2024 4:42:39 PM with status of Final
== END ==
LOC: HO.CARD 10:04
PROVIDERS: PCP Internal Medicine; Visit Provider Internal Medicine
DX: I47.10 Supraventricular tachycardia, unspecified (principal); R00.2 Palpitations
CPT/HCPCS: 93246; 93306; Q9957

== ENCOUNTER → 2024-09-24 10:14 | Outpatient (BNV) | payer OTHER, SELFPAY | PROVIDERS: PCP Internal Medicine; Visit Provider Internal Medicine | DX: I47.10 Supraventricular tachycardia, unspecified (principal) | CPT/HCPCS: 93306 ==

== ENCOUNTER 2024-11-04 11:00 | Outpatient (REF) | payer OTHER, SELFPAY ==
[2024-11-04 13:33] LABS: Alanine Aminotransferase 16 U/L (0-31); Anion Gap 17 (12-20); Aspartate Amino Transferase 23 U/L (5-31); Blood Urea Nitrogen 17 mg/dL (9-16); Carbon Dioxide 25 mmol/L (22-29); Chloride 102 mmol/L (96-108); Cholesterol 154 mg/dL (<200); Estimated Glomerular Filt Rate 56; Glucose Fasting 151 mg/dL (60-99); HDL Cholesterol 53 mg/dL (>40); LDL Cholesterol Calculated 70 mg/dL (<100); Potassium 3.7 mmol/L (3.3-5.1); Sodium 140 mmol/L (135-145); Triglycerides 159 mg/dL (<150)
[2024-11-04 13:34] LABS: Estimated Average Glucose 120 mg/dL; Hemoglobin A1C 141.4723 umol/L; Hemoglobin A1c % 5.8 % (<6.0); Total Hemoglobin (HGBA1C) 3576.9752 umol/L
[2024-11-04 13:51] LABS: Free T4 (Free Thyroxine) 2.16 ng/dL (0.71-1.85); Thyroid Stimulating Hormone 0.01 uIU/mL (0.32-4.0); Vitamin D 25-OH Total 116.3 ng/mL (>30)
== END 2024-11-04 11:01 | disposition home or self-care (01) ==
LOC: HO.HMGCLDS 11:00
PROVIDERS: PCP Internal Medicine; Visit Provider Internal Medicine
DX: Z00.01 Encounter for general adult medical examination with abnormal findings (principal); E11.9 Type 2 diabetes mellitus without complications; I10 Essential (primary) hypertension; E03.9 Hypothyroidism, unspecified; I25.10 Atherosclerotic heart disease of native coronary artery without angina pectoris; J44.9 Chronic obstructive pulmonary disease, unspecified; E78.5 Hyperlipidemia, unspecified; M47.27 Other spondylosis with radiculopathy, lumbosacral region; Z71.89 Other specified counseling; Z13.820 Encounter for screening for osteoporosis
CPT/HCPCS: 36415; 80048; 80061; 82306; 83036; 84439; 84443; 84450; 84460

== ENCOUNTER 2024-11-05 11:39 | Outpatient (AMB) | payer OTHER, SELFPAY ==
[2024-11-05 11:41] VITALS: BP 110/52; PULSE 61; RESP 17; TEMP 36.5; O2SAT 100; BMI 26.9
--- NOTE | 2024-11-05 11:41 | A.OFFPC_ITS ---
Vital Signs 11/05/24 11:41 Height 5 ft 4 in Weight 157 lb BMI 26.9 BP 110/52 L Blood Pressure Location Rt brachial Position Sitting Respiration 17 Pulse 61 Pulse Source Pulse Oximeter Temp 97.7 F Temp Source Oral Pulse Oximetry (%) 100 Oxygen Delivery Method Room Air Intake Visit Reasons: 3 months follow up Intake Note: Pt is here today for her 3mo. f/u Allergies amoxicillin [Augmentin] Adverse Reaction (Unknown, Verified 11/05/24 11:49) N/V high dose influenza Adverse Reaction (Uncoded 11/05/24 11:49) Hives Medication List - Last Reconciled 11/05/24 by Loretta Sanchez MD albuterol sulfate 2.5 mg (3 mL) inhalation Q4-6H PRN albuterol sulfate 90 mcg/actuation (ProAir HFA) 2 inhalations inhalation Q6H PRN aspirin 81 mg PO DAILY atorvastatin 10 mg PO DAILY [id number] mg tabs PO cholecalciferol (vitamin D3) 25 mcg PO DAILY citalopram 40 mg PO DAILY docusate sodium 100 mg PO DAILY levothyroxine 137 mcg PO DAILY lisinopril-hydrochlorothiazide 20-25 mg 1 tab PO DAILY metoprolol tartrate 25 mg PO BID 90 days multivitamin 1 tab PO DAILY omeprazole 20 mg PO DAILY tramadol 100 mg (2 x 50 mg) PO TID 30 days trazodone 100 mg PO BEDTIME PRN Tobacco use date assessed: 11/05/24 Fall risk assessment: No Falls in past year Last assessed Fall Risk: 11/05/24 Dental Screening Dental Screen Date: 11/05/24 Did you have a dental visit in the last 12 months?: No Did you have a dental problem in the last 6 months where you did not have access to dental care?: No Was dental information given to patient?: No HPI 3 months follow up HPI Details 79 -year-old lady with hyperlipidemia, t ype 2 diabetes mellitus controlled by diet, has acquired hypothyroidism, hypertension, COPD, and history of depression, here today for her follow-up. She has been compliant with taking her medications, tries to follow recommended diet. Admits to not getting any regular exercise Latest fasting labs showed fasting lipids are within normal limits but fasting blood sugars elevated, latest hemoglobin A1c is 5.8%, but TSH is less than 0.01 and free T4 is 2.16. . She however denies having had any palpitations, no increased due to redness, no normal weight loss, no diarrhea, no weakness but complains of constipation PFSH Medical History Trochanteric bursitis, right hip Chronic insomnia Hx of myocardial infarction Myocardial infarct Major depression in full remission Type 2 diabetes mellitus without complication, without long-term current use of insulin Essential hypertension Acquired hypothyroidism CAD (coronary artery disease) COPD (chronic obstructive pulmonary disease) Surgical History Hx of colonoscopy History of heart artery stent History of total hysterectomy Family History Father Parkinson disease Scoliosis Cancer Mother Colon cancer Maternal Grandmother No problems noted. Maternal Grandfather No problems noted. Paternal Grandmother Lung cancer Paternal Grandfather Alcoholism Diabetes mellitus Social History Housing: House Alcohol intake: current Alcohol intake frequency: a few times a week Patient Tobacco Use Status: Former Tobacco user Tobacco use type: Smokeless Tobacco Years Smoked: 14 e-Cigarette/Vaping Use: Currently Using Substance Use Type: Marijuana service: No Current occupational status: retired Cognitive needs: No Hearing needs: No Vision needs: Yes Questionnaire PHQ-9 Over the last 2 weeks, how often have you been bothered by any of the following problems? 1. Little interest or pleasure in doing things: not at all 2. Feeling down, depressed, or hopeless: not at all 3. Trouble falling or staying asleep, or sleeping too much: not at all 4. Feeling tired or having little energy: not at all 5. Poor appetite or overeating: not at all 6. Feeling bad about yourself - or that you are a failure or have let yourself or your family down: not at all 7. Trouble concentrating on things, such as reading the newspaper or watching television: not at all 8. Moving or speaking so slowly that other people could have noticed. Or the opposite - being so fidgety or restless that you have been moving around a lot more than usual: not at all 9. Thoughts that you would be better off or of hurting yourself in some way: not at all Total score: 0 Depression Screening Interpretation: Negative (Depression controlled with citalopram) Depression Screening Done: Yes Source: Developed by Drs. Otf Mandujano, Soraya Caba, Sim Villa and colleagues, with an educational kenan from [employer] Thrive Questionnaire Date Thrive assessed: 11/05/24 I am a: Patient What is your living situation today?: I have a steady place to live Within the past 12 months, did the food you bought not last and you didn't have the money to get more?: Never true Within the past 12 months, did you worry whether your food would run out before you got money to buy more?: Never true Do you have trouble paying for medicines?: No Do you have trouble getting transportation to medical appointments?: No Do you have trouble paying your heating and electricity bill?: No Do you have trouble taking care of your child, family member or friend?: No Do you have trouble with day-to-day activities such as bathing, preparing meals, shopping, managing finances, etc.?: No Are you currently unemployed and looking for a job?: No Are you interested in more education?: No THRIVE Score: 0 NADIA-7 AMB Questionnaire NADIA-7 Date NADIA - 7 assessed: 11/05/24 Feeling nervous, anxious, or on edge: 0 = Not at all Not being able to stop or control worryin = Not at all Worrying too much about different things: 0 = Not at all Trouble relaxin = Not at all Being so restless that it is hard to sit still: 0 = Not at all Becoming easily annoyed or irritable: 0 = Not at all Feeling afraid as if something awful might happen: 0 = Not at all Total NADIA-7 score (0-4 normal; 5-9 mild; 10-14 moderate; 15-21 severe): 0 Source: Developed by Drs. Otf Mandujano, Soraya Caba, Sim Villa and colleagues, with an educational kenan from [employer] NADIA-7 Assessment Billing NADIA-7 Assessment Tool: NADIA-7 Assessment 56258 Review of Systems Const Reports no additional complaints ENT Details: Gets dental cleaning every year Denies dizziness Card Denies chest pain, Denies leg edema, Denies lightheadedness, Denies palpitations and Denies dyspnea on exertion Resp Denies cough and Denies dyspnea on exertion GI Denies hematochezia and Denies change in stool character Reports no additional complaints Musc Denies abnormal gait, Denies muscle weakness, Denies numbness, Denies radiating pain into limb and Denies tingling Neuro Denies abnormal gait, Denies dizziness, Denies numbness and Denies tingling Endo Denies palpitations Hunter/Lymph Reports no additional complaints Aller/Immun Reports no additional complaints Physical exam (Primary Care) Vital Signs: Last Vital Signs Temp 97.7 F 11/05/24 11:41 Pulse 61 11/05/24 11:41 Resp 17 11/05/24 11:41 BP 110/52 L 11/05/24 11:41 Pulse Ox 100 11/05/24 11:41 Oxygen Delivery Method Room Air 11/05/24 11:41 BMI result Body Mass Index 26.9 Tobacco/Smoking Status: Tobacco use Status Tobacco use date assessed 11/05/24 11/05/24 11:44 Patient Tobacco Use Status Former Tobacco user 11/05/24 11:44 Tobacco use type Smokeless Tobacco 11/05/24 11:44 e-Cigarette/Vaping Use Currently Using 11/05/24 11:44 Depression Screening Interpretation: Negative (Depression controlled with citalopram) Thrive Assessment: Date of Thrive Assessment Date Thrive assessed 12/18/23 11/05/24 11:44 Const Other: Alert oriented x3 no acute distress noted ambulatory with normal gait Orientation/consciousness: patient oriented x3 HENMT Head: Yes normocephalic Ears: external ears normal, TM's normal bilaterally and EAC's normal General nose exam: Normal external nose present and No nasal discharge present Face and sinus: Yes face symmetric Mouth: Normal oral and palatal mucosa present, oropharynx normal and moist mucous membranes Teeth and gingiva: dentures Eyes General: appearance normal, both eyes and all related structures Neck Neck: Yes full ROM, Yes no lymphadenopathy and Yes supple Chest Breast/axilla palpation: normal palpation of the breasts Resp Auscultation: clear to auscultation bilaterally Cardio Other: S1-S2 present regular rate and rhythm GI Other: Normal bowel sounds, soft, nontender, with no mass palpated General: Yes no CVA tenderness Back/Spine/Pelvis Back: no CVA tenderness Skin General skin exam: no rashes or lesions noted Neuro General: patient oriented x3, gait normal, tone normal, moves all extremities, Normal light touch and pain sensation and no focal motor deficits Extrem General: Yes full ROM and Yes no joint enlargement Psych Appearance: grossly normal and well kempt Mental Status: mental status grossly normal Speech and movement: Normal speech and movement present Affect: normal affect Attitude: cooperative Thought process: Normal thought process present Results Reviewed Results Reviewed: Name: Estrella De La Torre Age/Sex: 79/F : 1945 Unit#: [id number] Attend Dr: Loretta Sanchez MD Re11/04/24 Status: DEP REF Location: [facility] Disch: SPEC : [id number] YASH: 11/04/24 STATUS: COMP REQ : [id number] RECD: 11/04/[address]: Loretta Sanchez MD COMP: 11/04/24 ENTERED: 11/04/[address]: ORDERED: Met Prof Fast, AST, ALT, Lipid Panel, Vitamin D 25-OH, Free T4, TSH Test Result Flag Reference Sodium 140 135-145 mmol/L Potassium 3.7 3.3-5.1 mmol/L CL 102 96-108 mmol/L CO2 25 22-29 mmol/L Gap 17 12-20 BUN 17 H 9-16 mg/dL Creat 0.96 0.5-1.4 mg/dL eGFR 56 Chronic Kidney Disease: Estimated GFR < 60 mL/min/1.73m2 Severe Kidney Disease: Estimated GFR < 15 mL/min/1.73m2 FBS 151 H 60-99 mg/dL A fasting glucose of 126 mg/dl or greater on more than one occasion is considered diagnostic of diabetes. CA 10.0 # 8.4-10.2 mg/dL AST (GOT) 23 5-31 U/L ALT (GPT) 16 0-31 U/L Triglyceride 159 H <150 mg/dL Desirable Triglyceride: less than 150 mg/dL Borderline High Triglyceride 150-199 mg/dL High Triglyceride: 200-499 mg/dL Very High Triglyceride: greater than or equal to 5OO mg/dL Cholesterol 154 <200 mg/dL Desirable Cholesterol: less than 200 mg/dL Borderline High Cholesterol: 200-239 mg/dL High Cholesterol: greater than 239 mg/dL LDL Calculated 70 <100 mg/dL Desirable LDL: less than 100 mg/dL Near Optimal/Above Optimal LDL: 110-129 mg/dL Borderline High LDL: 130-159 mg/dL High LDL: 160-189 mg/dL Very High LDL: greater than or equal to 190 mg/dL HDL 53 >40 mg/dL Desirable HDL: greater than 40 mg/dL Note: This HDL assay may give artificially low results in patients with liver disease. Vit D 25-OH Tot 116.3 >30 ng/mL Health Based Reference Values* < 20 ng/mL Deficient 20-30 ng/mL Insufficient > 30 ng/mL Sufficient *Stacia PARKER. N Engl J Med. 2007;357:266-280 Care must be taken in interpreting Vitamin D results from different laboratories and methodologies. Published data demonstrated that results from patients undergoing hemodialysis may show a negative bias when tested with various automated 25-OH vitamin D assays when compared to LC-MS/MS. When testing samples from patients whose predominant form of Vitamin D is Vitamin D2, such as patients receiving Vitamin D2 supplementation, results that are subtherapeutic should be confirmed with another method such as LC-MS/MS. Free T4 2.16 H 0.71-1.85 ng/dL TSH 3rd Gen. 0.01 L 0.32-4.0 uIU/mL TSH 3rd Generation ([facility]) Coding Level of Care Code Est Pt Level 4 (97109) Complex EM visit Add On G2211 Diagnoses Acquired hypothyroidism E03.9 Essential hypertension I10 Other and unspecified hyperlipidemia E78.5 Type 2 diabetes mellitus without complication, without long-term current use of insulin E11.9 Recurrent major depressive disorder, in full remission F33.42 Major depression recurrence: recurrent Additional Codes NADIA-7 Assessment Billing - NADIA-7 Assessment Tool: NADIA-7 Assessment 74137 ( [id number]) Assessment & Plan Assessment & Plan (1) Acquired hypothyroidism: Code(s): E03.9 - Hypothyroidism, unspecified Category: Medical Plan: Recent thyroid levels reviewed with patient. Will decrease levothyroxine dose to 125 mcg taken once a day in a.m., repeat TSH and free T4 in 01/2025 (2) Essential hypertension: Code(s): I10 - Essential (primary) hypertension Category: Medical Plan: Blood pressure at goal of less than 130/80. Continue lisinopril-HCTZ 20-25 mg taken once a day, metoprolol tartrate 25 mg 1 tablet twice a day Reinforced importance of following a low sodium diet, getting regular exercise, and lowering stress levels. (3) Other and unspecified hyperlipidemia: Code(s): E78.5 - Hyperlipidemia, unspecified Category: Medical Plan: Reviewed recent fasting lipid profile with patient with levels within normal limits . Continue atorvastatin 10 mg daily , in addition to adherence to low-cholesterol diet and regular exercise, at least 30 minutes 3 to 4 times a week. Advised patient to make healthy food choices, eat more fruits, vegetables, whole grains, wild caught fish and low-fat dairy. Limit amount of meat and fried or fatty food products, as well as processed foods and fast foods. Follow-up scheduled with repeat fasting lipid panel in 3 months. (4) Type 2 diabetes mellitus without complication, without long-term current use of insulin: Code(s): E11.9 - Type 2 diabetes mellitus without complications Category: Medical Plan: Hemoglobin A1c on latest labs done came back within normal limits at 5.8%. Currently not on any medications but advised to continue with adherence to healthy eating habits and getting regular exercise, will recheck levels again in 3 (5) Major depression in full remission: Code(s): F32.5 - Major depressive disorder, single episode, in full remission Category: Medical Qualifiers: Major depression recurrence: recurrent Qualified Code(s): F33.42 - Major depressive disorder, recurrent, in full remission Plan: Controlled on citalopram 40 mg taken once daily Orders: Orders Thyroid Stimulating Hormone 01/15/25 E03.9 - Hypothyroidism, unspecified, E78.5 - Hyperlipidemia, unspecified, I10 - Essential (primary) hypertension, Z78.0 - Asymptomatic menopausal state Lipid Panel 01/15/25 E03.9 - Hypothyroidism, unspecified, E78.5 - Hyperlipidemia, unspecified, I10 - Essential (primary) hypertension, Z78.0 - Asymptomatic menopausal state Aspartate Amino Transferase 01/15/25 E03.9 - Hypothyroidism, unspecified, E78.5 - Hyperlipidemia, unspecified, I10 - Essential (primary) hypertension, Z78.0 - Asymptomatic menopausal state Basic Metabolic Panel Fasting 01/15/25 E03.9 - Hypothyroidism, unspecified, E78.5 - Hyperlipidemia, unspecified, I10 - Essential (primary) hypertension, Z78.0 - Asymptomatic menopausal state Vitamin D 25-OH Total 01/15/25 E03.9 - Hypothyroidism, unspecified, E78.5 - H yperlipidemia, unspecified, I10 - Essential (primary) hypertension, Z78.0 - Asymptomatic menopausal state Hemoglobin A1c 01/15/25 E11.9 - Type 2 diabetes mellitus without complications Free T4 (Free Thyroxine) 01/15/25 E03.9 - Hypothyroidism, unspecified, E78.5 - Hyperlipidemia, unspecified, I10 - Essential (primary) hypertension, Z78.0 - Asymptomatic menopausal state Alanine Aminotransferase 01/15/25 E03.9 - Hypothyroidism, unspecified, E78.5 - Hyperlipidemia, unspecified, I10 - Essential (primary) hypertension, Z78.0 - Asymptomatic menopausal state Microalbumin, Random (w Creat) 01/15/25 E11.9 - Type 2 diabetes mellitus without complications Medications: Changed From levothyroxine 137 mcg PO DAILY 90 tabs 1RF E03.9 - Hypothyroidism, unspecified To levothyroxine 125 mcg PO DAILY 90 tabs 1RF E03.9 - Hypothyroidism, unspecified
== END 2024-11-05 12:11 | disposition home or self-care (01) ==
PROVIDERS: PCP Internal Medicine; Visit Provider Internal Medicine
DX: E03.9 Hypothyroidism, unspecified (principal); I10 Essential (primary) hypertension; E78.5 Hyperlipidemia, unspecified; E11.9 Type 2 diabetes mellitus without complications; F33.42 Major depressive disorder, recurrent, in full remission

== ENCOUNTER → 2024-11-05 11:39 | Outpatient (BNVA) | payer OTHER, SELFPAY | PROVIDERS: PCP Internal Medicine; Visit Provider Internal Medicine | DX: E03.9 Hypothyroidism, unspecified (principal); I10 Essential (primary) hypertension; E78.5 Hyperlipidemia, unspecified; E11.9 Type 2 diabetes mellitus without complications; F33.42 Major depressive disorder, recurrent, in full remission | CPT/HCPCS: 96127; 99212 ==

== ENCOUNTER 2025-02-04 08:41 | Outpatient (REF) | payer OTHER, SELFPAY ==
[2025-02-04 10:22] LABS: Estimated Average Glucose 117 mg/dL; Hemoglobin A1C 141.8496 umol/L; Hemoglobin A1c % 5.7 % (<6.0); Total Hemoglobin (HGBA1C) 3676.7812 umol/L
[2025-02-04 10:31] LABS: Alanine Aminotransferase 19 U/L (0-31); Anion Gap 13 (12-20); Aspartate Amino Transferase 23 U/L (5-31); Blood Urea Nitrogen 14 mg/dL (9-16); Calcium 9.9 mg/dL (8.4-10.2); Carbon Dioxide 29 mmol/L (22-29); Chloride 102 mmol/L (96-108); Cholesterol 164 mg/dL (<200); Estimated Glomerular Filt Rate 59; Glucose Fasting 120 mg/dL (60-99); HDL Cholesterol 48 mg/dL (>40); LDL Cholesterol Calculated 82 mg/dL (<100); Potassium 3.5 mmol/L (3.3-5.1); Sodium 140 mmol/L (135-145); Triglycerides 172 mg/dL (<150)
[2025-02-04 10:46] LABS: Free T4 (Free Thyroxine) 1.65 ng/dL (0.71-1.85); Thyroid Stimulating Hormone 0.01 uIU/mL (0.32-4.0); Vitamin D 25-OH Total 62.9 ng/mL (>30)
[2025-02-04 11:01] LABS: Creatinine Urine 56.48 mg/dL; Microalbum/Creatinine Ratio Ur 21.2 ug/mg cr (<30)
== END 2025-02-04 08:42 | disposition home or self-care (01) ==
LOC: HO.HMGCLDS 08:41
PROVIDERS: PCP Internal Medicine; Visit Provider Internal Medicine
DX: E03.9 Hypothyroidism, unspecified (principal); I10 Essential (primary) hypertension; E78.5 Hyperlipidemia, unspecified; E11.9 Type 2 diabetes mellitus without complications; Z78.0 Asymptomatic menopausal state
CPT/HCPCS: 36415; 80048; 80061; 82043; 82306; 82570; 83036; 84439; 84443; 84450; 84460

== ENCOUNTER 2025-02-05 10:56 | Outpatient (AMB) | payer OTHER, SELFPAY ==
--- NOTE | 2025-02-05 11:05 | MHC.PC.OV ---
Vital Signs 02/05/25 11:23 Height 5 ft 4 in Weight 146 lb BMI 25.1 BP 128/68 Blood Pressure Location Lt brachial Position Sitting Respiration 18 Pulse 54 Pulse Source Pulse Oximeter Temp 97.7 F Temp Source Oral Pulse Oximetry (%) 99 Oxygen Delivery Method Room Air Intake Visit Reasons: 3 months follow up Intake Note: Pt is here today for her3mo. f/u Allergies amoxicillin [Augmentin] Adverse Reaction (Unknown, Verified 02/15/25 17:11) N/V high dose influenza Adverse Reaction (Uncoded 02/15/25 17:11) Hives Medication List - Last Reconciled 02/15/25 by Loretta Sanchez MD albuterol sulfate 2.5 mg (3 mL) inhalation Q4-6H PRN albuterol sulfate 90 mcg/actuation 2 inhalations inhalation Q6H PRN aspirin 81 mg PO DAILY atorvastatin 10 mg PO DAILY [id number] 887-5-88-5-1.5 mg tabs PO cholecalciferol (vitamin D3) 25 mcg PO DAILY citalopram 40 mg PO DAILY docusate sodium 100 mg PO DAILY levothyroxine 125 mcg PO DAILY lisinopril-hydrochlorothiazide 20-25 mg 1 tab PO DAILY metoprolol tartrate 25 mg PO BID 90 days multivitamin 1 tab PO DAILY omeprazole 20 mg PO DAILY tramadol 100 mg (2 x 50 mg) PO TID 30 days trazodone 100 mg PO BEDTIME PRN Tobacco use date assessed: 02/05/25 Fall risk assessment: No Falls in past year Last assessed Fall Risk: 02/05/25 Dental Screening Dental Screen Date: 02/05/25 Did you have a dental visit in the last 12 months?: Yes Did you have a dental problem in the last 6 months where you did not have access to dental care?: No Was dental information given to patient?: Patient has dentist HPI 3 months follow up HPI Details 79-year-old lady here today for follow-up on her lipids hypertension, and diabetes mellitus currently diet controlled. She has been feeling well, with no complaints at present time. [facility] Medical History (Updated 02/15/25 @ 17:16 by Loretta Sanchez MD) Dyslipidemia Trochanteric bursitis, right hip Chronic insomnia Hx of myocardial infarction Myocardial infarct Major depression in full remission Type 2 diabetes mellitus without complication, without long-term current use of insulin Essential hypertension Acquired hypothyroidism CAD (coronary artery disease) COPD (chronic obstructive pulmonary disease) Surgical History Hx of colonoscopy History of heart artery stent History of total hysterectomy Family History Father Parkinson disease Scoliosis Cancer Mother Colon cancer Maternal Grandmother No problems noted. Maternal Grandfather No problems noted. Paternal Grandmother Lung cancer Paternal Grandfather Alcoholism Diabetes mellitus Social History Housing: House Alcohol intake: current Alcohol intake frequency: a few times a week Patient Tobacco Use Status: Former Tobacco user Tobacco use type: Smokeless Tobacco Years Smoked: 14 e-Cigarette/Vaping Use: Currently Using Substance Use Type: Marijuana service: No Current occupational status: retired Cognitive needs: No Hearing needs: No Vision needs: Yes Questionnaire PHQ-9 Over the last 2 weeks, how often have you been bothered by any of the following problems? Depression Screening Interpretation: Negative (Depression controlled with citalopram) Depression Screening Done: Yes Source: Developed by Drs. Otf Mandujano, Soraya Caba, Sim Villa and colleagues, with an educational kenan from [employer]. Thrive Questionnaire Date Thrive assessed: 11/05/24 NADIA-7 AMB Questionnaire NADIA-7 Date NADIA - 7 assessed: 11/05/24 Source: Developed by Drs. Otf Mandujano, Sim Jeff and colleagues, with an educational kenan from [employer]. Review of Systems Const Reports no additional complaints ENT Details: Gets dental cleaning every year Denies dizziness Card Denies chest pain, Denies leg edema, Denies lightheadedness, Denies palpitations and Denies dyspnea on exertion Resp Denies cough and Denies dyspnea on exertion GI Denies hematochezia and Denies change in stool character Reports no additional complaints Musc Denies abnormal gait, Denies muscle weakness, Denies numbness, Denies radiating pain into limb and Denies tingling Neuro Denies abnormal gait, Denies dizziness, Denies numbness and Denies tingling Endo Denies palpitations Hunter/Lymph Reports no additional complaints Aller/Immun Reports no additional complaints Physical exam (Primary Care) Vital Signs: Last Vital Signs Temp 97.7 F 02/05/25 11:23 Pulse 54 02/05/25 11:23 Resp 18 02/05/25 11:23 BP 128/68 02/05/25 11:23 Pulse Ox 99 02/05/25 11:23 Oxygen Delivery Method Room Air 02/05/25 11:23 BMI result Body Mass Index 25.1 Tobacco/Smoking Status: Tobacco use Status Tobacco use date assessed 02/05/25 02/05/25 11:06 Patient Tobacco Use Status Former Tobacco user 02/05/25 11:05 Tobacco use type Smokeless Tobacco 02/05/25 11:05 e-Cigarette/Vaping Use Currently Using 02/05/25 11:05 Depression Screening Interpretation: Negative (Depression controlled with citalopram) Thrive Assessment: Date of Thrive Assessment Date Thrive assessed 11/05/24 02/05/25 11:05 Const Other: Alert oriented x3 no acute distress noted ambulatory with normal gait Orientation/consciousness: patient oriented x3 HENMT Head: Yes normocephalic Ears: external ears normal General nose exam: Normal external nose present Face and sinus: Yes face symmetric Mouth: oropharynx normal and moist mucous membranes Teeth and gingiva: dentures Eyes General: appearance normal, both eyes and all related structures Neck Neck: Yes full ROM, Yes no lymphadenopathy and Yes supple Resp Auscultation: clear to auscultation bilaterally Cardio Other: S1-S2 present regular rate and rhythm GI Other: Normal bowel sounds, soft, nontender, with no mass palpated General: Yes no CVA tenderness Back/Spine/Pelvis Back: no CVA tenderness Skin General skin exam: no rashes or lesions noted Neuro General: patient oriented x3, gait normal, tone normal, moves all extremities, Normal light touch and pain sensation and no focal motor deficits Extrem General: Yes full ROM and Yes no joint enlargement Psych Appearance: grossly normal and well kempt Mental Status: mental status grossly normal Speech and movement: Normal speech and movement present Affect: normal affect Attitude: cooperative Thought process: Normal thought process present Results Reviewed Results Reviewed: Laboratory Tests 02/04/25 08:44 Estimat Average Glucose 117 Hemoglobin A1c % 5.7 Microalb/Creat Ratio 21.2 Name: Estrella De La Torre Age/Sex: 79/F : 1945 Unit#: [id number] Attend Dr: Loretta Sanchez MD Re02/04/25 Status: DEP REF Location: [facility] Disch: SPEC : [id number] YASH: 02/04/25 STATUS: COMP REQ : [id number] RECD: 02/04/25-[address]: Loretta Sanchez MD COMP: 02/04/25 ENTERED: 02/04/[address]: ORDERED: Met Prof Fast, AST, ALT, Lipid Panel, Vitamin D 25-OH, Free T4, TSH Test Result Flag Reference Sodium 140 135-145 mmol/L Potassium 3.5 3.3-5.1 mmol/L CL 102 96-108 mmol/L CO2 29 22-29 mmol/L Gap 13 12-20 BUN 14 9-16 mg/dL Creat 0.92 0.5-1.4 mg/dL eGFR 59 Chronic Kidney Disease: Estimated GFR < 60 mL/min/1.73m2 Severe Kidney Disease: Estimated GFR < 15 mL/min/1.73m2 FBS 120 H 60-99 mg/dL A fasting glucose from 100-125 mg/dl is considered impaired (pre-diabetes). CA 9.9 8.4-10.2 mg/dL AST (GOT) 23 5-31 U/L ALT (GPT) 19 0-31 U/L Triglyceride 172 H <150 mg/dL Desirable Triglyceride: less than 150 mg/dL Borderline High Triglyceride 150-199 mg/dL High Triglyceride: 200-499 mg/dL Very High Triglyceride: greater than or equal to 5OO mg/dL Cholesterol 164 <200 mg/dL Desirable Cholesterol: less than 200 mg/dL Borderline High Cholesterol: 200-239 mg/dL High Cholesterol: greater than 239 mg/dL LDL Calculated 82 <100 mg/dL Desirable LDL: less than 100 mg/dL Near Optimal/Above Optimal LDL: 110-129 mg/dL Borderline High LDL: 130-159 mg/dL High LDL: 160-189 mg/dL Very High LDL: greater than or equal to 190 mg/dL HDL 48 >40 mg/dL Desirable HDL: greater than 40 mg/dL Note: This HDL assay may give artificially low results in patients with liver disease. Vitamin D 25-OH 62.9 >30 ng/mL Health Based Reference Values* < 20 ng/mL Deficient 20-30 ng/mL Insufficient > 30 ng/mL Sufficient *Stacia PARKER. N Engl J Med. 2007;357:266-280 There is no well-established upper level of normal vitamin D levels. Some laboratories use 50 ng/mL as an upper limit of normal. However, toxicity is patient-dependent and may occur at any level. Careful correlation with the patient's presentation is necessary and, if there is concern for vitamin D toxicity, treatment should be considered irrespective of the serum level. Care must be taken in interpreting Vitamin D results from different laboratories and methodologies. Published data demonstrated that results from patients undergoing hemodialysis may show a negative bias when tested with various automated 25-OH vitamin D assays when compared to LC-MS/MS. When testing samples from patients whose predominant form of Vitamin D is Vitamin D2, such as patients receiving Vitamin D2 supplementation, results that are subtherapeutic should be confirmed with another method such as LC-MS/MS. Free T4 1.65 0.71-1.85 ng/dL TSH 3rd Gen. 0.01 L 0.32-4.0 uIU/mL Coding Level of Care Code Est Pt Level 4 (74122) Complex EM visit Add On G2211 Diagnoses Type 2 diabetes mellitus without complication, without long-term current use of insulin E11.9 Essential hypertension I10 Acquired hypothyroidism E03.9 Dyslipidemia E78.5 Assessment & Plan Assessment & Plan (1) Type 2 diabetes mellitus without complication, without long-term current use of insulin: Code(s): E11.9 - Type 2 diabetes mellitus without complications Category: Medical Plan: Diet controlled, with hemoglobin A1c at 5 sent (2) Essential hypertension: Code(s): I10 - Essential (primary) hypertension Category: Medical Plan: Blood pressure at goal of less than 130/80. Continue lisinopril-HCTZ and metoprolol tartrate same dose.. Reinforced importance of following a low sodium diet, getting regular exercise, and lowering stress levels. Home (3) Acquired hypothyroidism: Code(s): E03.9 - Hypothyroidism, unspecified Category: Medical Plan: Thyroid results within normal limits, continue with levothyroxine 125 mcg daily (4) Dyslipidemia: Code(s): E78.5 - Hyperlipidemia, unspecified Category: Medical Plan: Fasting lipids are within normal limits, continued on atorvastatin 10 mg daily Medications: Changed From albuterol sulfate 90 mcg/actuation 2 inhalations inhalation Q6H PRN 8.5 grams 2RF shortness of breath or wheezing To albuterol sulfate 90 mcg/actuation 2 inhalations inhalation Q6H PRN 8.5 grams 2RF shortness of breath or wheezing
[2025-02-05 11:23] VITALS: BP 128/68; PULSE 54; RESP 18; TEMP 36.5; O2SAT 99; BMI 25.1
== END 2025-02-05 11:55 | disposition home or self-care (01) ==
LOC: HO.HMCC 10:57
PROVIDERS: PCP Internal Medicine; Visit Provider Internal Medicine
DX: E11.9 Type 2 diabetes mellitus without complications (principal); I10 Essential (primary) hypertension; E03.9 Hypothyroidism, unspecified; E78.5 Hyperlipidemia, unspecified

== ENCOUNTER → 2025-02-05 10:56 | Outpatient (BNVA) | payer OTHER, SELFPAY | PROVIDERS: PCP Internal Medicine; Visit Provider Internal Medicine | DX: I10 Essential (primary) hypertension (principal); E03.9 Hypothyroidism, unspecified; E78.5 Hyperlipidemia, unspecified; E11.9 Type 2 diabetes mellitus without complications | CPT/HCPCS: 99212 ==

== ENCOUNTER 2025-02-17 12:29 | Outpatient (AMB) | payer OTHER, SELFPAY ==
--- NOTE | 2025-02-17 12:42 | MHC.OFFVIS ---
Vital Signs 02/17/25 12:43 Height 5 ft 4 in Weight 145 lb 8.081 oz BMI 25.0 BP 124/62 Blood Pressure Location Lt brachial Position Sitting Pulse 76 Pulse Source Pulse Oximeter Intake Visit Reasons: r/s 2/4-/-01/26 f/u s/p echo/holter Allergies amoxicillin [Augmentin] Adverse Reaction (Unknown, Verified 02/15/25 17:11) N/V high dose influenza Adverse Reaction (Uncoded 02/15/25 17:11) Hives Medication List - Last Reconciled 02/17/25 by Josh Anne MD albuterol sulfate 2.5 mg (3 mL) inhalation Q4-6H PRN albuterol sulfate 90 mcg/actuation 2 inhalations inhalation Q6H PRN aspirin 81 mg PO DAILY atorvastatin 10 mg PO DAILY [id number] 026-7-28-5-1.5 mg tabs PO cholecalciferol (vitamin D3) 25 mcg PO DAILY citalopram 40 mg PO DAILY docusate sodium 100 mg PO DAILY levothyroxine 125 mcg PO DAILY lisinopril-hydrochlorothiazide 20-25 mg 1 tab PO DAILY metoprolol tartrate 25 mg PO BID 90 days multivitamin 1 tab PO DAILY omeprazole 20 mg PO DAILY tramadol 100 mg (2 x 50 mg) PO TID 30 days trazodone 100 mg PO BEDTIME PRN HPI Comments Details: Estrella returns for follow-up. In the past, she was seen regarding coronary artery disease. History of heart attack about 25+ years ago with PCI but unknown details. In 2023, she had an episode of palpitations leading to ER visit and per description, thought to have had SVT episode. Then put on beta-blockers. Since last seen, she states she feels quite good. No further palpitations. She has completed an echocardiogram and Holter. [facility] Medical History (Updated 02/15/25 @ 17:16 by Loretta Sanchez MD) Dyslipidemia Trochanteric bursitis, right hip Chronic insomnia Hx of myocardial infarction Myocardial infarct Major depression in full remission Type 2 diabetes mellitus without complication, without long-term current use of insulin Essential hypertension Acquired hypothyroidism CAD (coronary artery disease) COPD (chronic obstructive pulmonary disease) Surgical History Hx of colonoscopy History of heart artery stent History of total hysterectomy Family History Father Parkinson disease Scoliosis Cancer Mother Colon cancer Maternal Grandmother No problems noted. Maternal Grandfather No problems noted. Paternal Grandmother Lung cancer Paternal Grandfather Alcoholism Diabetes mellitus Social History Housing: House Alcohol intake: current Alcohol intake frequency: a few times a week Patient Tobacco Use Status: Former Tobacco user Tobacco use type: Smokeless Tobacco Years Smoked: 14 e-Cigarette/Vaping Use: Currently Using Substance Use Type: Marijuana service: No Current occupational status: retired Cognitive needs: No Hearing needs: No Vision needs: Yes Review of Systems Const Denies weakness ENT Denies dizziness Card Denies chest pain, Denies chest pain with activity, Denies syncope, Denies rapid heart rate, Denies pedal edema, Denies edema, Denies leg edema, Denies lightheadedness, Denies palpitations, Denies dyspnea, Denies dyspnea on exertion and Denies orthopnea Resp Denies cough, Denies dyspnea and Denies dyspnea on exertion GI Denies hematochezia and Denies change in stool character Musc Denies abnormal gait, Denies muscle cramps, Denies muscle weakness, Denies numbness, Denies radiating pain into limb and Denies tingling Neuro Denies abnormal gait, Denies dizziness, Denies syncope, Denies numbness, Denies tingling and Denies weakness Endo Denies palpitations Physical Exam Vital Signs: Last Vital Signs Pulse 76 02/17/25 12:43 BP 124/62 02/17/25 12:43 BMI result Body Mass Index 25.0 Const General: comfortable and no acute distress Orientation/consciousness: patient oriented x3 HEENT Other: Unremarkable Head: Yes normal to inspection Neck Neck: Yes normal visual inspection Chest Chest palpation & inspection: normal inspection of the chest Resp Auscultation: clear to auscultation bilaterally Cardio Palpation: normal PMI Heart sounds: S1 normal heart sound present, S2 normal heart sound present, no gallops, Murmur heart sound present systolic I/ and at the right sternal border and no rubs GI Palpation (GI): Soft to palpation Back/Spine/Pelvis Other: unremarkable Skin General skin exam: no rashes or lesions noted Neuro General: patient oriented x3 Extrem General: Yes normal to inspection Psych Mental Status: mental status grossly normal Assessment & Plan Assessment & Plan (1) SVT (supraventricular tachycardia): Code(s): I47.10 - Supraventricular tachycardia, unspecified Category: Medical (2) CAD (coronary artery disease): Code(s): I25.10 - Atherosclerotic heart disease of [place] coronary artery without angina pectoris Category: Medical Qualifiers: Associated angina: without angina Coronary Disease-Associated Artery/Lesion type: [place] artery [place] vs. transplanted heart: [place] heart Qualified Code(s): I25.10 - Atherosclerotic heart disease of [place] coronary artery without angina pectoris Plan EMS records reviewed. Thought to have had SVT episode with ventricular rate of 170/Min. Then received IV adenosine 6 mg followed by 12 mg. EKG available from the ER shows only sinus rhythm and hence we do not have the actual tracing from the SVT. Echocardiogram with LVEF of 60-65%. Aortic valve not well visualized. Otherwise, no significant findings. Holter with underlying sinus rhythm/sinus bradycardia. Rare supraventricular/ventricular ectopy. Overall, isolated episode of presumed supraventricular tachycardia and now well controlled on beta-blockers. As she is otherwise feeling well, no further changes and continue the same. With regard to the coronary disease itself, remote history from more than 25 years ago. She seems to be on reasonable regimen including aspirin, statins and does not have any angina. No new recommendations at this time. She will call us with any ongoing concerns. Discussion Notes During the visit, I discussed that the patient's palpitations have resolved with metoprolol. I explained that there is no need for further imaging at this time, given previous satisfactory ultrasound results. I reviewed the possible symptoms of concern, including chest pain and shortness of breath, and advised her on when to seek further evaluation. Coordination of care and ongoing symptom monitoring were emphasized, with a strategy to contact me if she experiences any return of symptoms or new cardiovascular issues. Patient was informed and verbally consented to the use of an ambient scribe for clinic note documentation during this visit. Patient Instructions: - Keep taking metoprolol as prescribed. - Watch out for any return of symptoms like chest pain or trouble breathing. - Call the office if you have any problems. - You don't need more imaging tests right now. Coding Level of Care Code Est Pt Level 3 (87939) Diagnoses SVT (supraventricular tachycardia) I47.10 Coronary artery disease involving [place] coronary artery of [place] heart without angina pectoris I25.10 Associated angina: without angina Coronary Disease-Associated Artery/Lesion type: [place] artery [place] vs. transplanted heart: [place] heart
[2025-02-17 12:43] VITALS: BP 124/62; PULSE 76; BMI 25.0
== END 2025-02-17 13:09 | disposition home or self-care (01) ==
LOC: HO.HCS 12:29
PROVIDERS: PCP Internal Medicine; Visit Provider Internal Medicine
DX: I47.10 Supraventricular tachycardia, unspecified (principal); I25.10 Atherosclerotic heart disease of native coronary artery without angina pectoris
CPT/HCPCS: 99213

== ENCOUNTER → 2025-02-17 12:29 | Outpatient (BNVA) | payer OTHER, SELFPAY | PROVIDERS: PCP Internal Medicine; Visit Provider Internal Medicine | DX: I25.10 Atherosclerotic heart disease of native coronary artery without angina pectoris (principal); I47.10 Supraventricular tachycardia, unspecified; I25.2 Old myocardial infarction | CPT/HCPCS: 99212 ==

== ENCOUNTER 2025-02-26 15:29 | Outpatient (AMB) | payer OTHER, SELFPAY ==
[2025-02-26 15:31] VITALS: BP 122/62; PULSE 58; O2SAT 95; BMI 25.3
--- NOTE | 2025-02-26 15:31 | A.OFFVIS_ITS ---
Vital Signs 02/26/25 15:31 Height 5 ft 4 in Weight 147 lb 4.301 oz BMI 25.3 BP 122/62 Blood Pressure Location Lt brachial Position Sitting Pulse 58 Pulse Source Pulse Oximeter Pulse Oximetry (%) 95 Oxygen Delivery Method Room Air Intake Visit Reasons: Rt Hip pain/inj Intake Note: Patient complains of left shoulder bursitis today, also. Allergies amoxicillin [Augmentin] Adverse Reaction (Unknown, Verified 02/26/25 15:35) N/V high dose influenza Adverse Reaction (Uncoded 02/26/25 15:35) Hives Medication List - Last Reconciled 03/01/25 by Moni Ulloa MD albuterol sulfate 2.5 mg (3 mL) inhalation Q4-6H PRN albuterol sulfate 90 mcg/actuation 2 inhalations inhalation Q6H PRN aspirin 81 mg PO DAILY atorvastatin 10 mg PO DAILY [id number] [id number] mg tabs PO cholecalciferol (vitamin D3) 25 mcg PO DAILY citalopram 40 mg PO DAILY docusate sodium 100 mg PO DAILY levothyroxine 125 mcg PO DAILY lisinopril-hydrochlorothiazide 20-25 mg 1 tab PO DAILY metoprolol tartrate 25 mg PO BID 90 days multivitamin 1 tab PO DAILY omeprazole 20 mg PO DAILY tramadol 100 mg (2 x 50 mg) PO TID 30 days trazodone 100 mg PO BEDTIME PRN HPI Comments Details: Patient is a 79 y.o. female with asthma, HLD, depression, hypothyroidism, HTN, GERD, spinal degenerative disc disease and polyarticular OA is here today for follow up Interval History: Patient last seen 06/27/[address] Key. At that time she was following up for an urgent visit for bilateral greater trochanteric bursitis, which she received steroid injections for. Today, She is doing well Her bilateral greater trochanteric bursitis is improved She is complaining of bilateral shoulder pain L>R Rheumatologic History: Spine DDD OA Recurrent greater trochanteric bursitis Current Rheumatology Medication(s): Tramadol 50mg tid prn PFSH Medical History (Updated 02/15/25 @ 17:16 by Loretta Sanchez MD) Dyslipidemia Trochanteric bursitis, right hip Chronic insomnia Hx of myocardial infarction Myocardial infarct Major depression in full remission Type 2 diabetes mellitus without complication, without long-term current use of insulin Essential hypertension Acquired hypothyroidism CAD (coronary artery disease) COPD (chronic obstructive pulmonary disease) Surgical History Hx of colonoscopy History of heart artery stent History of total hysterectomy Family History Father Parkinson disease Scoliosis Cancer Mother Colon cancer Maternal Grandmother No problems noted. Maternal Grandfather No problems noted. Paternal Grandmother Lung cancer Paternal Grandfather Alcoholism Diabetes mellitus Social History Housing: House Alcohol intake: current Alcohol intake frequency: a few times a week Patient Tobacco Use Status: Former Tobacco user Tobacco use type: Smokeless Tobacco Years Smoked: 14 e-Cigarette/Vaping Use: Currently Using Substance Use Type: Marijuana service: No Current occupational status: retired Cognitive needs: No Hearing needs: No Vision needs: Yes Review of Systems Const Details: Review of Systems Constitutional: Denies fever, chills, weight loss ENT: Denies vision changes, eye pain or eye redness, dental caries, dry mouth GI: Denies nausea, vomiting, diarrhea, abdominal pain, change in BM Pulm: Denies SOB, LEVINE, hemoptysis, wheezing Cards: Denies chest pain, palpitations Skin: Denies Raynaud's, rash, nail changes, photosensitivity, [employer] SPECIALIST: Denies headaches, weakness, paresthesias, recurrent falls MSK: as per HPI All other systems reviewed and are unremarkable except noted above Physical Exam Vital Signs: Last Vital Signs Pulse 58 02/26/25 15:31 BP 122/62 02/26/25 15:31 Pulse Ox 95 02/26/25 15:31 Oxygen Delivery Method Room Air 02/26/25 15:31 BMI result Body Mass Index 25.3 Vital signs reviewed Physical Examination CONSTITUITIONAL Patient alert and cooperative. Well appearing and in no apparent painful distress HEENT Conjunctiva and sclera clear. No lymphadenopathy. CHEST/RESPIRATORY SYSTEM Normal respiratory effort and able to speak in complete sentences. Clear to auscultation bilaterally. No crackles, rales, rhonchi, wheezes heard. CARDIAC SYSTEM Regular rate and rhythm. S1 and S2 heard no murmurs. Radial pulses intact bilaterally MSK Hands * Right Hand: Able to make a fist. No swelling or tenderness to palpation of these joints. Herbeden's nodes * Left Hand: Able to make a fist. No swelling or tenderness to palpation of these joints. Herbeden's nodes Wrists * Right Wrist: Full ROM. 70 degrees of wrist flexion, 80 degrees of wrist extension. No swelling or TTP * Left Wrist: Full ROM. 70 degrees of wrist flexion, 80 degrees of wrist extension. No swelling or TTP Elbows * Right Elbow: Full ROM. No swelling or TTP. No TTP of the medial and lateral epicondyles * Left Elbow: Full ROM. No swelling or TTP. No TTP of the medial and lateral epicondyles Shoulders * Right shoulder: Decreased ROM. No swelling noted. TTP of the AC joint * Left shoulder: Decreased ROM. No swelling noted. TTP of the AC joint Hip bursa: Mild TTP bilaterally Knees * Right knee: No swelling noted. No TTP of the knee joint lie or pes anserine bursa * Left knee: No swelling noted. No TTP of the knee joint lie or pes anserine bursa. Ankles * Right ankle: Good ankle dorsiflexion and plantar flexion. No swelling. No TTP of the ankle joint * Left ankle: Good ankle dorsiflexion and plantar flexion. No swelling. No TTP of the ankle joint Feet * Right foot: Negative squeeze test * Left foot: Negative squeeze test Tender points? * No tenderness to palpation of the bilateral trapezius, supraspinatus, anterior costochondral junctions, bilateral suboccipital muscle insertions SKIN No rashes Office Procedures AMB Joint Injection/Aspiration Joint Injection/Aspiration Details: Procedure was explained to the patient Risks associated with steroid injection discussed including but not limited to bleeding, infection, drug reactions, reactions/nguyen from the topical anesthetic Understanding the risks and benefits of the procedure, patient provided verbal conser to proceed. The area of interest was identified and confirmed with patient. This was subsequently cleaned with chlorhexidine x 2. The area was then anesthetized using ethyl chloride spray. 40 mg Kenalog with 1 cc 1% lidocaine was injected without issue. Minimal to no bleeding. Patient tolerated procedure. Primary Site: left shoulder Prep: site was prepped using aseptic technique and ethochloride spray was applied Injected: 40 mg of, Kenalog, with 1 mL of and in the joint Approach Used: anterior Procedure: The patient tolerated the procedure well Coding 52639 - Acromioclavicular Procedure code (CPT) selection complete Office Meds lidocaine (PF) 10 mg/mL (1 %) injection solution Performing Provider: Moni Ulloa MD Performing Location: [facility] Rheumatology Administered by: Moni Ulloa MD on 03/01/25 15:37 Dose Route Admin Location Dispensed Lot Number Expiration Date [facility] [employer] 1 mL intra-articular left AC joint 2 mL [id number] 12/16/26 03650-886-60 [facility] Kenalog 40 mg/mL suspension for injection Performing Provider: Moni Ulloa MD Performing Location: [facility] Rheumatology Administered by: Moni Ulloa MD on 03/01/25 15:37 Dose Route Admin Location Dispensed Lot Number Expiration Date [facility] [employer] 40 mg intra-articular left AC joint 1 mL [id number] 01/15/26 [address]-3 [employer] Results Reviewed Results Reviewed: Laboratory Tests 02/04/25 08:44 Sodium 140 Potassium 3.5 Chloride 102 Carbon Dioxide 29 BUN 14 Creatinine 0.92 Calcium 9.9 AST 23 ALT 19 25-OH Vitamin D Total 62.9 Assessment & Plan Assessment & Plan (1) Polyarticular osteoarthritis: Code(s): M15.9 - Polyosteoarthritis, unspecified Plan: #Polyarticular OA Patient is a 79 y.o. female with polyarticular OA here today for follow up. Main complaint today was shoulder pain, received an injection in the left AC joint. Plan - s/p left AC injection today - Tramdol 50mg tid refilled - RTC prn (2) Greater trochanteric bursitis of both hips: Code(s): M70.61 - Trochanteric bursitis, right hip; M70.62 - Trochanteric bursitis, left hip Plan: #Bilateral greater trochanteric bursitis Stable today Plan I spent 20 minutes reviewing the patient's chart, taking a history, examining, answering patient's question and documenting. Orders: Orders AMB Joint Injection/Aspiration 02/26/25 M19.012 - Primary osteoarthritis, left shoulder Medications: New 2 Kenalog (triamcinolone acetonide) 40 mg intra-articular ONCE 1 mL 0RF NS M19.012 - Primary osteoarthritis, left shoulder lidocaine (PF) 1 mL intra-articular ONCE 2 mL 0RF M19.012 - Primary osteoarthritis, left shoulder Refilled tramadol 100 mg (2 x 50 mg) PO TID 30 days 180 tabs 5RF M47.27 - Other spondylosis with radiculopathy, lumbosacral region Coding Level of Care Code Est Pt Level 3 (94095) Diagnoses Polyarticular osteoarthritis M15.9 Greater trochanteric bursitis of both hips M70.61; M70.62 CPT Codes Coding - Joint 5: 84619 - Acromioclavicular ([id number])
== END 2025-02-26 16:13 | disposition home or self-care (01) ==
LOC: HO.RHE 15:29
PROVIDERS: PCP Internal Medicine; Visit Provider Student in an Organized Health Care Education/Training Program
DX: M15.9 Polyosteoarthritis, unspecified (principal); M70.61 Trochanteric bursitis, right hip; M70.62 Trochanteric bursitis, left hip; M19.012 Primary osteoarthritis, left shoulder
CPT/HCPCS: 20605; 99213

== ENCOUNTER → 2025-02-26 15:29 | Outpatient (BNVA) | payer OTHER, SELFPAY | PROVIDERS: PCP Internal Medicine; Visit Provider Student in an Organized Health Care Education/Training Program | DX: M70.61 Trochanteric bursitis, right hip (principal); M70.62 Trochanteric bursitis, left hip; M15.9 Polyosteoarthritis, unspecified; M25.511 Pain in right shoulder; M25.512 Pain in left shoulder | CPT/HCPCS: 20605; 99212; J3300 ==

== ENCOUNTER 2025-05-29 10:21 | Outpatient (AMB) | payer OTHER, SELFPAY ==
--- NOTE | 2025-05-29 10:17 | MHC.PC.OV ---
Intake Visit Reasons: med management/insominia Allergies amoxicillin (Augmentin) Adverse Reaction (Unknown, Verified 05/30/25 23:51) N/V high dose influenza Adverse Reaction (Uncoded 05/30/25 23:51) Hives Medication List - Last Reconciled 05/29/25 by Loretta Sanchez MD albuterol sulfate 2.5 mg (3 mL) inhalation Q4-6H PRN albuterol sulfate 90 mcg/actuation 2 inhalations inhalation Q6H PRN aspirin 81 mg PO DAILY atorvastatin 10 mg PO DAILY [id number]-xbiw-B8-kqyrgj-SG 057-0-82-5-1.5 mg tabs PO cholecalciferol (vitamin D3) 25 mcg PO DAILY citalopram 40 mg PO DAILY docusate sodium 100 mg PO DAILY levothyroxine 125 mcg PO DAILY lisinopril-hydrochlorothiazide 20-25 mg 1 tab PO DAILY metoprolol tartrate 25 mg PO BID 90 days multivitamin 1 tab PO DAILY omeprazole 20 mg PO DAILY tramadol 100 mg (2 x 50 mg) PO TID 30 days trazodone 100 mg PO BEDTIME PRN Tobacco use date assessed: 05/29/25 Fall risk assessment: No Falls in past year Last assessed Fall Risk: 05/29/25 Dental Screening Dental Screen Date: 05/29/25 Did you have a dental visit in the last 12 months?: No Did you have a dental problem in the last 6 months where you did not have access to dental care?: No Was dental information given to patient?: Patient has dentist HPI med management/insominia HPI Details 71-year-old lady here today complaining of difficulty sleeping despite taking trazodone 100 mg at bedtime, with used to help her sleep. States that she frequently wakes up during the night, usually to use the bathroom, has a hard time getting back to sleep. She has major depression hold on citalopram 40 mg daily which she has been on for several years now. Patient insisting that she wants to be placed on lorazepam, which she was taking daily, several years ago , which she states was helping her sleep well. Has tried Ambien which she states did not agree with her. Has started taking trazodone with Benadryl and Relaxium ( contains 5 mg Melatonin) , which is an pgsw-ozp-lykweeu sleep aid, all of which has not been helping. [facility] Medical History (Updated 05/30/25 @ 23:57 by Loretta Sanchez MD) Insomnia Dyslipidemia Trochanteric bursitis, right hip Chronic insomnia Hx of myocardial infarction Myocardial infarct Major depression in full remission Type 2 diabetes mellitus without complication, without long-term current use of insulin Essential hypertension Acquired hypothyroidism CAD (coronary artery disease) COPD (chronic obstructive pulmonary disease) Surgical History Hx of colonoscopy History of heart artery stent History of total hysterectomy Family History Father Parkinson disease Scoliosis Cancer Mother Colon cancer Maternal Grandmother No problems noted. Maternal Grandfather No problems noted. Paternal Grandmother Lung cancer Paternal Grandfather Alcoholism Diabetes mellitus Social History Housing: House Alcohol intake: current Alcohol intake frequency: a few times a week Patient Tobacco Use Status: Former Tobacco user Tobacco use type: Smokeless Tobacco Years Smoked: 14 e-Cigarette/Vaping Use: Currently Using Substance Use Type: Marijuana service: No Current occupational status: retired Cognitive needs: No Hearing needs: No Vision needs: Yes Questionnaire PHQ-9 Over the last 2 weeks, how often have you been bothered by any of the following problems? 1. Little interest or pleasure in doing things: not at all 2. Feeling down, depressed, or hopeless: not at all 3. Trouble falling or staying asleep, or sleeping too much: not at all 4. Feeling tired or having little energy: not at all 5. Poor appetite or overeating: not at all 6. Feeling bad about yourself - or that you are a failure or have let yourself or your family down: not at all 7. Trouble concentrating on things, such as reading the newspaper or watching television: not at all 8. Moving or speaking so slowly that other people could have noticed. Or the opposite - being so fidgety or restless that you have been moving around a lot more than usual: not at all 9. Thoughts that you would be better off or of hurting yourself in some way: not at all Total score: 0 Depression Screening Interpretation: Negative (Depression controlled with citalopram) Depression Screening Done: Yes Source: Developed by Drs. Otf Mandujano, Sim Jeff and colleagues, with an educational kenan from [employer]. Thrive Questionnaire Date Thrive assessed: 11/05/24 I am a: Patient What is your living situation today?: I have a steady place to live Within the past 12 months, did the food you bought not last and you didn't have the money to get more?: Never true Within the past 12 months, did you worry whether your food would run out before you got money to buy more?: Never true Do you have trouble paying for medicines?: No Do you have trouble getting transportation to medical appointments?: No Do you have trouble paying your heating and electricity bill?: No Do you have trouble taking care of your child, family member or friend?: No Do you have trouble with day-to-day activities such as bathing, preparing meals, shopping, managing finances, etc.?: No Are you currently unemployed and looking for a job?: No Are you interested in more education?: No Currently or been in a relationship where the following occur: No concerns reported THRIVE Score: 0 AUDIT C Alcohol Use Questionnaire (AUDIT-C) 1. How often do you have a drink containing alcohol?: Monthly or less Total Score: 1 Score Reviewed/Action Taken: Yes NADIA-7 AMB Questionnaire NADIA-7 Date NADIA - 7 assessed: 11/05/24 Feeling nervous, anxious, or on edge: 0 = Not at all Not being able to stop or control worryin = Not at all Worrying too much about different things: 0 = Not at all Trouble relaxin = Not at all Being so restless that it is hard to sit still: 0 = Not at all Becoming easily annoyed or irritable: 0 = Not at all Feeling afraid as if something awful might happen: 0 = Not at all Total NADIA-7 score (0-4 normal; 5-9 mild; 10-14 moderate; 15-21 severe): 0 Source: Developed by Soraya Haynes Kurt Kroenke and colleagues, with an educational kenan from [employer]. Review of Systems Const All systems reviewed & are unremarkable except as noted in HPI and below Physical exam (Primary Care) Tobacco/Smoking Status: Tobacco use Status Tobacco use date assessed 05/29/25 05/29/25 10:20 Patient Tobacco Use Status Former Tobacco user 05/29/25 10:20 Tobacco use type Smokeless Tobacco 05/29/25 10:20 e-Cigarette/Vaping Use Currently Using 05/29/25 10:20 PHQ-9: PHQ-9 Score PHQ-9: Total score 0 05/29/25 10:47 Depression Screening Interpretation: Negative (Depression controlled with citalopram) Thrive Assessment: Date of Thrive Assessment Date Thrive assessed 11/05/24 05/29/25 10:20 Currently or been in a relationship where the following occur: No concerns reported Coding Level of Care Code Tele Est Pt Level 4 (12845) Diagnoses Insomnia, unspecified type G47.00 Insomnia type: unspecified Assessment & Plan Assessment & Plan (1) Insomnia: Code(s): G47.00 - Insomnia, unspecified Category: Medical Qualifiers: Insomnia type: unspecified Qualified Code(s): G47.00 - Insomnia, unspecified Plan: Patient advised to stop taking trazodone, Benadryl and rjdu-sxo-wzneqad sleep aids, e.g. relaxium. Will try on eszopiclone 3 mg 1 tablet at bedtime as needed her difficulty sleeping. Discussed possible side effects of medication which may include drowsiness upon awakening, advised to his cervical least 7 hours of sleeptime when taking the medication. Do not mix with other sleep aids call if after 1 week no improvement of symptoms noted on medication Medications: New eszopiclone 3 mg PO BEDTIME PRN 30 tabs 0RF insomnia Discontinued trazodone Discontinued Reason: Doctor's Order 100 mg PO BEDTIME PRN 90 tabs 0RF insomnia
--- OUTSIDE RECORDS SUMMARY | 2025-05-29 11:47 | XMS_ITS | Patient Health Record ---
Author Organization [facility] Address [address] [place] [address] Care Team Providers Care Hydrologist Name Role Phone Laura VILLANUEVA, Loretta Primary Care Provider Otf Merida Unavailable [phone] Allergies Allergen (clinical drug ingredient) Drug/Non Drug Allergy documented on EMR Reaction Allergy Type Onset Date Status amoxicillin / clavulanate Amoxicillin-Pot Clavulanate ER Unknown Drug Allergy Active Reason For Referral No Information Medications Medication SIG (Take, Route, Frequency, Duration) Notes Start Date End Date Status Lisinopril 20 MG 1 tablet Orally Once a day for 30 day(s) Active Melatonin 5 MG 1 tablet at bedtime as needed with food Orally Once a day for 30 day(s) Active Citalopram Hydrobromide 20 MG 1 tablet O rally Once a day for 30 day(s) Active Vitamin D3 2000 UNIT 1 capsule Orally On a day for 30 day(s) Active Vitamin C 500 MG 1 tablet Orally Once a day Active hydroCHLOROthiazide 25 MG 1 tablet in th e morning Orally Once a day for 30 day(s) Active Aspir-Low Active Spiriva HandiHaler 18 MCG 1 capsule Inha lation Once a day Active ProAir HFA 108 (90 Base) MCG/ACT 2 puffs as needed Inhalation every 6 hrs Active Levothyroxine Sodium 137 MCG 1 tablet on an empty stomach in the morning Orally Once a day for 30 day(s) Active LORazepam 0.5 MG 1 tablet as needed Orally every 6 hrs Active Atorvastatin Calcium 10 MG 1 tablet Oral ly Once a day for 30 day(s) Active Glucosamine Chond Double Str Active Fish Oil 1200 mg 1 capsule Orally Onc e a day Active traMADol HCl 50 MG 1 tablet as needed Orally every 6 hrs Active Calcium Citrate + D3 Active Immunizations Vaccine Route Administration Date Status Comme nts Influenza Unknown 06/17/2018 Administered Social History Tobacco Use: Social History Observation Description Date Details (start date - stop date) Current Smoker NA - NA Tobacco Use/Smoking Question Answer Notes Patient is a current smoker How often do you smoke cigarettes? every day How many cigarettes a day do you smoke? 11-20 Alcohol Screen Question Answer Notes Did you have a drink contain ing alcohol in the past year? Yes How often did you have a dri nk containing alcohol in the past year? 2 to 3 times a week (3 points) How many drinks did you have on a typical day when you were drinking in the past year? 5 or 6 drinks (2 points) Points 5 Interpretation Positive Section Notes: Smoker 1/2 ppd; occ. alcohol Problems Problem Type SNOMED Code ICD Code Onset Dates Problem Status W/U Status Risk Notes Problem 279263249 Encounter for screening for malignant neoplasm of colon (Z12.11) Active confirmed Problem [id number] Preprocedural examination (Z01.818) Active confirmed Problem 948927421 Long-term use of aspirin therapy (Z79.82) Active confirmed Problem 76735068 Constipation, unspecified constipation type (K59.00) Active confirmed Plan Of Treatment Future Test Test Name Order Date COLONOSCOPY 09/24/2018 Insurance Providers Payer Name Payer Address Payer Phone Subscriber Number Group Number Insured Name Patient Relationship to Insured Coverage Start Date Coverage End Date [facility] (REFERRAL NEEDED) [address] [place] [address] [phone] [id number] ANI TOMPKINS Self - patient is the insured Medicare of [place] [employer] [address] [place] [address] [id number] ANI TOMPKINS Self - patient is the insured Medical (General) History Medical History History ICD Code AL at age 51-- mild --[address] d--no preoblems since then Hypertension COPD Describes a negative colonos copy > [address] Doherty in [place] Denies DM,CVA,renal disease Depresssion/Anxiety Surgical History Surgery Date(Month/Year) [facility] 1975
== END 2025-05-29 15:35 | disposition home or self-care (01) ==
LOC: HO.HMCC 10:21
PROVIDERS: PCP Internal Medicine; Visit Provider Internal Medicine
DX: G47.00 Insomnia, unspecified (principal)

== ENCOUNTER 2025-06-17 10:25 | Outpatient (AMB) | payer OTHER, SELFPAY ==
[2025-06-17 10:57] VITALS: BP 116/66; PULSE 45; O2SAT 95; BMI 25.1
--- NOTE | 2025-06-17 10:57 | MHC.OFFVIS ---
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 difficulty sleeping despite taking trazodone 100 mg at bedtime wakes up at 2am, with used to help her sleep. States that she frequently wakes up during the night, usually to use the bathroom, has a hard time getting back to sleep. She has major depression hold on citalopram 40 mg daily which she has been on for several years now. Patient insisting that she wants to be placed on lorazepam, which she was taking daily, several years ago , which she states was helping her sleep well. Has tried Ambien which she states did not agree with her. Has started taking trazodone with Benadryl and Relaxium ( contains 5 mg Melatonin) , which is an adnt-zlp-scrzssg sleep aid, all of which has not been helping. No history of sleep studies. Accompanied by: Self / Same As Patient Allergies amoxicillin (Augmentin) Adverse Reaction (Unknown, Verified 06/17/25 10:59) N/V high dose influenza Adverse Reaction (Uncoded 05/30/25 23:51) Hives HPI Comments Details: 79 year old female referred to us for an evaluation of Insomnia, by her pcp. She has a h/o of chronic insomnia since her teenage years. She goes to bed at 9pm wakes up at 6:30am, with multiple arousals for the bathroom. She never sleeps 9 hours and this was a big improvement since starting Lunesta 3mg and Trazadone 50mg which she takes 1/2 tablet, along with benadryl, Relaxium and Tylenol otc. We discussed s/e and adverse effects of sleep aide overuse / abuse. She has a h/o incontinence and wears a pad at night. She has morning headaches, and recently received her new glasses thus headaches now resolved. She denies bruxism, and clenching of the jaw. She switches sides several times at night, tosses and turns, kicks her feet all night long. She has RLS symptoms which cause several night time arousals due to kicking episodes with cramps, spasms bilaterally in feet. She has lower back pain due to an injury from a fall and sustained multiple vertebral disc, spondylosis and degenerative processes to include L1-L5 canal stenosis, facet joint arhtropy, which causes her to be irritable. She is followed by pain management. She has anxiety with panic attacks and takes tramadol 100mg at night along with citalopram 40mg po qhs for elevated mood. She is always constipated due to use of pain meds, her diet is stable. Memory is poor and worse when fatigued. She has difficulty with names, difficulty with orientation days of the week, lacks attention to detail, and easy distractibility. She is a former tobacco smoker, quit 14 years ago and has 2 cocktails weekly. [facility] Medical History Insomnia Dyslipidemia Trochanteric bursitis, right hip Chronic insomnia Hx of myocardial infarction Myocardial infarct Major depression in full remission Type 2 diabetes mellitus without complication, without long-term current use of insulin Essential hypertension Acquired hypothyroidism CAD (coronary artery disease) COPD (chronic obstructive pulmonary disease) Surgical History Hx of colonoscopy History of heart artery stent History of total hysterectomy Family History Father Parkinson disease Scoliosis Cancer Mother Colon cancer Maternal Grandmother No problems noted. Maternal Grandfather No problems noted. Paternal Grandmother Lung cancer Paternal Grandfather Alcoholism Diabetes mellitus Social History Housing: House Alcohol intake: current Alcohol intake frequency: a few times a week Patient Tobacco Use Status: Former Tobacco user Tobacco use type: Smokeless Tobacco Years Smoked: 14 e-Cigarette/Vaping Use: Currently Using Substance Use Type: Marijuana service: No Current occupational status: retired Cognitive needs: No Hearing needs: No Vision needs: Yes Physical Exam Vital Signs: Last Vital Signs Pulse 45 L 06/17/25 10:57 BP 116/66 06/17/25 10:57 Pulse Ox 95 06/17/25 10:57 Oxygen Delivery Method Room Air 06/17/25 10:57 BMI result Body Mass Index 25.1 Const General: cooperative, no acute distress and anxious Nutritional Appearance: average body habitus Orientation/consciousness: patient oriented x3 Limitations: ambulation with cane HEENT Face and sinus: Yes face symmetric Teeth and gingiva: other ([place] score of 3) Eyes Pupils: Equal, round and reactive pupils present Neck Neck: Yes full ROM Resp Effort & Inspection: normal respiratory effort and able to speak in complete sentences Neuro General: patient oriented x3 and moves all extremities Cranial nerves: Yes Equal, round and reactive pupils present, Yes Normal accommodation reflex present, Yes Normal facial strength present, Yes Midline tongue present, Yes Ability to bilaterally rotate head present and Yes Ability to bilaterally elevate shoulders present Cognition (Neuro): normal cognition Gait exam (Neuro): Antalgic gait present Motor exam (neuro): Abnormal motor strength present and Abnormal muscle tone present Psych Appearance: grossly normal Affect: Anxious affect present Thought process: Normal thought process present Thought content: Normal thought content present Results Reviewed Results Reviewed: CT/CT lumbar spine wo IV con IMPRESSION: Stable extensive multilevel lumbar spondylosis with severe central canal stenosis at the L3-L4 level. Significant left foraminal narrowing as well, with a lateral subluxation at this level. Severe rightward lumbar spinal curvature. No compression fractures. Anterolisthesis and advanced facet degeneration at L5 on S1 with moderate central canal stenosis. Bony spurring encroaching upon the right lateral recess and mildly impressing upon the right S1 nerve root. Severe right foraminal narrowing and distortion of the right L5 nerve root. Assessment & Plan Assessment & Plan (1) Excessive daytime sleepiness: Code(s): G47.19 - Other hypersomnia Category: Medical (2) Constipation: Code(s): K59.00 - Constipation, unspecified Category: Medical Qualifiers: Constipation type: drug induced constipation Qualified Code(s): K59.03 - Drug induced constipation (3) Irritable mood: Code(s): R45.4 - Irritability and anger Category: Medical Plan HST r/o LATANYA Irritable mood due to lack of sleep/ insomnia/ fatigue. Labs r/o deficiencies Magnesium 400mg po daily for constipation. Constipation increase miralax, laxative, dulcolax, or senna, with water and or prune juice. Re: Beer Criteria by the Am. Geriatrics Society: Pt education provided re: taking these meds all in conjunction due to insomnia and adverse effects of medication over use. Tramadol 100mg 2x 50m g TID. Trazadone 100mg po qhs Relaxium Lorazepam discontinued ambien benadryl melatonin Orders: Orders Ferritin Today G47.19 - Other hypersomnia Vitamin B6 Today G47.19 - Other hypersomnia Vitamin B12 and Folate Today G47.19 - Other hypersomnia Vitamin B1 Today G47.19 - Other hypersomnia RT home sleep study Today G47.19 - Other hypersomnia Methylmalonic Acid Today G47.19 - Other hypersomnia, G47.9 - Sleep disorder, unspecified, R53.83 - Other fatigue Homocysteine Today G47.19 - Other hypersomnia, G47.9 - Sleep disorder, unspecified, R53.83 - Other fatigue Vitamin D 25-OH Total Today G47.19 - Other hypersomnia Medications: New magnesium oxide 400 mg PO DAILY 90 tabs 3RF constipation 3 months MDD 400mg K59.00 - Constipation, unspecified Patient Instructions: Sleep Hygiene provided: set a scheduled bedtime and wake time to help regulate the circadian rhythm and balance the release of pituitary hormones. Sleep in a dark room, temperatures below 68 degrees, and no devices n bed. Limit caffeinated products 6 hours prior to bed, and limit fluids 2-4 hours prior to bed. Gentle night yoga, diffusing essential oils, and playing soft music can be relaxing. Coding Level of Care Code New Pt Level 4 (96337) Diagnoses Excessive daytime sleepiness G47.19 Drug-induced constipation K59.03 Constipation type: drug induced constipation Irritable mood R45.4 Sleep Questionnaire Difficulty falling asleep: Yes Difficulty staying asleep?: Yes Snoring: No Witnessed apneas: No Gasping arousals: No Nocturia: Yes GERD: No Vivid dreams: Yes Acting out dreams: No Abnormal behavior in sleep: No Abnormal movements in sleep: No Morning headaches: Yes Excessive daytime sleepiness: Yes Daytime naps: Yes Restless legs: Yes Hallucinations: No Sleep paralysis: No Drop attacks: No Sleep Study: No CPAP: No
--- OUTSIDE RECORDS SUMMARY | 2025-06-17 11:50 | XMS_ITS | Patient Health Record ---
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 Name Role Phone Laura VILLANUEVA, Loretta Primary Care Provider Otf Merida Unavailable [phone] Allergies Allergen (clinical drug ingredient) Drug/Non Drug [...] Problem Status W/U Status Risk Notes Problem [id number] Encounter for screening for malignant neoplasm of colon (Z12.11) Active confirmed Problem [id number] Preprocedural examination (Z01.818) Active confirmed Problem [id number] Long-term use of aspirin therapy (Z79.82) Active confirmed Problem 05683307 Constipation, unspecified constipation type (K59.00) Active confirmed Plan Of Treatment Future Test Test Name Order Date COLONOSCOPY 09/24/2018 Insurance Providers Payer Name Payer Address Payer Phone Subscriber Number Group Number Insured Name Patient Relationship to Insured Coverage Start Date Coverage End Date [facility] (REFERRAL NEEDED) [address] [place] [phone] [id number] ANI TOMPKINS Self - patient is the insured Medicare of [place] [employer] [address] [place] [address] [id number] ANI TOMPKINS Self - patient is the insured Medical (General) History Medical History History ICD Code [place] at age 51-- mild --[address] d--no preoblems since then Hypertension COPD Describes a negative colonos copy > [address] Doherty in [place] Denies DM,CVA,renal disease Depresssion/Anxiety Surgical History Surgery Date(Month/Year) [facility] 1975
== END 2025-06-17 11:50 | disposition home or self-care (01) ==
LOC: HO.HSMC 10:25
PROVIDERS: PCP Internal Medicine; Visit Provider Physician Assistant Medical
DX: G47.19 Other hypersomnia (principal); K59.03 Drug induced constipation; R45.4 Irritability and anger
CPT/HCPCS: 99204

== ENCOUNTER → 2025-06-17 10:25 | Outpatient (BNVA) | payer OTHER, SELFPAY | PROVIDERS: PCP Internal Medicine; Visit Provider Physician Assistant Medical | DX: K59.03 Drug induced constipation (principal); G47.19 Other hypersomnia; R45.4 Irritability and anger; G47.9 Sleep disorder, unspecified | CPT/HCPCS: 99202 ==

== ENCOUNTER 2025-07-09 12:22 | Outpatient (REF) | payer OTHER, SELFPAY | END 2025-07-09 12:23 | disposition home or self-care (01) | LOC: HO.MAMMO 12:22 | PROVIDERS: PCP Internal Medicine; Visit Provider Internal Medicine | DX: Z12.31 Encounter for screening mammogram for malignant neoplasm of breast (principal) | CPT/HCPCS: 77063; 77067 ==

== ENCOUNTER → 2025-07-09 12:30 | Outpatient (BNV) | payer OTHER, SELFPAY | PROVIDERS: PCP Internal Medicine; Visit Provider Internal Medicine | DX: Z12.31 Encounter for screening mammogram for malignant neoplasm of breast (principal) | CPT/HCPCS: 77063; 77067 ==

== ENCOUNTER 2025-07-28 10:25 | Emergency (ER) | payer OTHER, SELFPAY ==
--- NOTE | ~2025-07-28 | XR_ITS ---
EXAMINATION: XR SACRUM AND COCCYX CLINICAL INFORMATION: Fall COMPARISON: None available. TECHNIQUE: 2 views of the sacrum and 2 views of the coccyx were obtained. FINDINGS: Moderate atherosclerotic calcification is present in the distal aorta and common Moderate to severe degenerative change is present in the lower lumbar spine. No fracture, abnormal offset, or other abnormality is evident in the sacrum and coccyx. XR/XR sacrum coccyx min 2V IMPRESSION: No acute fracture is visualized. Electronically signed by: Yosvany Bal MD 07/28/2025 01:06 PM [facility]
--- NOTE | ~2025-07-28 | XR_ITS ---
EXAMINATION: XR LUMBOSACRAL SPINE CLINICAL INFORMATION: Fall COMPARISON: November 30, 2023 TECHNIQUE: Three views of the lumbosacral spine. FINDINGS: There are 5 nonrib-bearing lumbar segments. There is 35 degrees dextroscoliosis. There is a superior endplate compression fracture of L1 with 30% loss of height. Again seen is degenerative disc disease with endplate sclerosis and osteophytes most pronounced at L2-3, L3-4, L4-5. XR/XR lumbar spine 2-3V IMPRESSION: L1 superior endplate compression fracture with 30% loss of height is new since November 2023. Multilevel degenerative disc disease and facet osteoarthritis Electronically signed by: Yosvany Bal MD 07/28/2025 01:13 PM [facility]
[2025-07-28 10:39] VITALS: BP 161/60; BP 178/72; PULSE 52; PULSE 67; RESP 16; TEMP 36.6; O2SAT 95; O2SAT 97; BMI 25.7
--- NOTE | 2025-07-28 12:30 | ED.FALL ---
HPI - Fall General Chief Complaint: Fall Stated Complaint: BACK PAIN,3 FALLS T-1 D/T NEW MED,-LOC,-THINNER Time Seen by Provider: 07/28/25 12:15 Source: patient and family (Spouse) Mode of arrival: ambulatory Limitations: no limitations History of Present Illness ED Provider: DR. Grace HPI Narrative: 80-year-old female history of chronic back pain and spinal stenosis, essential hypertension, DM, presented with 2 days of no back pain after patient sustained a mechanical fall 2 days ago the patient landed on her buttock, was no LOC, no head injury, no neck pain, no anticoagulation therapy. No fever, no chills. Related Data Home Medications ?Medication ?Instructions ?Recorded ?Confirmed aspirin 81 mg tablet,delayed 81 mg PO DAILY 07/30/20 03/01/25 release cholecalciferol (vitamin D3) 25 25 mcg PO DAILY 07/30/20 03/01/25 mcg (1,000 unit) capsule multivitamin 1 tab PO DAILY 09/07/20 03/01/25 docusate sodium 100 mg capsule 100 mg PO DAILY 10/05/20 03/01/25 omeprazole 20 mg capsule,delayed 20 mg PO DAILY 10/05/20 03/01/25 release B3-azelaic bmqj-tbop-O0-copper-FA tab PO 07/12/23 03/01/25 600 mg-5 mg-10 mg-5 mg-1.5 mg tablet Previous Rx's ?Medication ?Instructions ?Recorded albuterol sulfate 2.5 mg/3 mL 2.5 mg (3 mL) inhalation Q4-6H PRN 03/15/21 (0.083 %) solution for nebulization shortness of breath or wheezing #75 mL albuterol sulfate 90 mcg/actuation 2 inh inhalation Q6H PRN shortness 02/05/25 aerosol inhaler of breath or wheezing #8.5 grams tramadol 50 mg tablet 100 mg (2 x 50 mg) PO TID 30 days 03/01/25 #180 tabs citalopram 40 mg tablet 40 mg PO DAILY #90 tabs 04/23/25 metoprolol tartrate 25 mg tablet 25 mg PO BID 90 days #180 tabs 04/30/25 levothyroxine 125 mcg tablet 125 mcg PO DAILY #90 tabs 05/04/25 atorvastatin 10 mg tablet 10 mg PO DAILY #90 tabs 06/14/25 lisinopril 20 1 tab PO DAILY #90 tabs 06/14/25 mg-hydrochlorothiazide 25 mg tablet magnesium oxide 400 mg PO DAILY constipation 3 06/17/25 months #90 tabs eszopiclone 3 mg tablet 3 mg PO BEDTIME PRN insomnia #30 07/22/25 tabs lidocaine 4 % topical patch 1 patch topical BID PRN pain #10 ea 07/28/25 Allergies Allergy/AdvReac Type Severity Reaction Status Date / Time amoxicillin (Augmentin) AdvReac Unknown N/V Verified 07/28/25 10:42 high dose influenza AdvReac Hives Uncoded 07/28/25 10:42 Review of Systems Review of Systems: All other systems are reviewed and are negative Constitutional: Reports as per HPI and Reports no additional constitutional complaints Eyes: Reports as per HPI and Reports no additional eye complaints Reports system reviewed and no additional complaints, except as documented Cardiovascular: Reports as per HPI and Reports no additional cardiovascular complaints Respiratory: Reports as per HPI and Reports no additional respiratory complaints Gastrointestinal: Reports as per HPI and Reports no additional gastrointestinal complaints Genitourinary: Reports no additional female genitourinary complaints Musculoskeletal: Reports no additional musculoskeletal complaints Skin/Breast: Reports system reviewed and no additional complaints, except as docu Psychiatric: Reports no additional psychiatric complaints Endocrine: Reports no additional endocrine complaints Hematologic/Lymphatic: Reports no additional hematologic/lymphatic complaints Allergic/Immunologic: Reports no additional allergic/immunologic complaints Reports system reviewed and no additional complaints, except as documented and Reports Abnormal speech present [facility] Past Medical History Medical History Insomnia Dyslipidemia Trochanteric bursitis, right hip Chronic insomnia Hx of myocardial infarction Myocardial infarct Major depression in full remission Type 2 diabetes mellitus without complication, without long-term current use of insulin Essential hypertension Acquired hypothyroidism CAD (coronary artery disease) COPD (chronic obstructive pulmonary disease) Surgical History Hx of colonoscopy History of heart artery stent History of total hysterectomy Family History Family History Father Parkinson disease Scoliosis Cancer Mother Colon cancer Maternal Grandmother No problems noted. Maternal Grandfather No problems noted. Paternal Grandmother Lung cancer Paternal Grandfather Alcoholism Diabetes mellitus Social History Social History Housing: House Alcohol intake: current Alcohol intake frequency: a few times a week Patient Tobacco Use Status: Former Tobacco user Tobacco use type: Smokeless Tobacco Years Smoked: 14 e-Cigarette/Vaping Use: Currently Using Substance Use Type: Marijuana Advance Directives: No Advance Directives Information Provided: Yes Do you have a plan to hurt others: No Plan service: No Current occupational status: retired Cognitive needs: No Hearing needs: No Vision needs: Yes Physical Exam Vital Signs: Vital Signs: Last Vital Signs Temp 97.8 F 07/28/25 10:39 Pulse 52 07/28/25 10:39 Resp 16 07/28/25 10:39 BP 161/60 H 07/28/25 10:39 Pulse Ox 95 07/28/25 10:39 O2 Del Method Room Air 07/28/25 10:39 BMI result Body Mass Index 25.7 Vital signs have been reviewed and appear to be correct. Blood pressure elevated. Heart rate normal. Respiratory rate normal. Temperature normal. Oxygen saturation normal. Appearance: Alert. Oriented X3. No acute distress. Head: Normal external exam. Normocephalic. Atraumatic. No Morejon signs noted. No raccoon eyes noted Eyes: PERRLA. EOMI. Conjunctiva and sclera normal. Eyelids normal. ENT: TM's Normal. Pharynx normal. Uvula midline. Moist mucous membranes. No trismus noted. No drooling noted. No muffled voice noted. Neck: Normal inspection. Neck supple. FROM. No adenopathy. Thyroid Normal. No meningeal signs. No neck mass noted. CVS: Normal heart rate and rhythm. Heart sound normal. No murmurs noted. Pulses normal throughout. Respiratory: No respiratory distress. Painless inspiration. Breath sounds normal. No wheezes/rales/rhonchi noted. Chest nontender. No accessory muscle usage noted or decreased air movement noted. Abdomen: Soft and nontender. Bowel sounds normal in all 4 quadrants. No distention noted. No organomegaly noted. No visible injury noted. Back: +ecchymosis to the right lower back soft tissue, no step-off. Skin: Skin warm and dry. Normal skin color. Normal skin turgor. No rashes/lesions/lacerations noted. Extremities: No lower extremity edema. Extremities exhibit normal range of motion. Extremities nontender. Neuro: Oriented X 3. Cranial nerve exam: II-XII are grossly intact No motor deficit. No sensory deficit. Reflexes normal. Course Reevaluation(s) Reevaluation #1: 80-year-old female s/p mechanical fall presented with low back pain and ecchymosis in the right lower back, x-ray of lumbar spine reveals compression deformity about 30% loss of height in L1, finding were discussed with the patient, patient is already taking tramadol 50 normally for pain, given the patient age and risk of falling would refrain from prescribing narcotic will prescribe lidocaine patches to apply to the tender area with the tramadol pain medication should be controllable, to follow-up with PCP as prescribed. Patient declined rehab referral. Time: 14:24 Medications Administered Discontinued Medications Generic Name Dose Route Start Last Admin Trade Name Freq PRN Reason Stop Dose Admin Oxycodone HCl 5 mg 07/28/25 12:29 07/28/25 13:06 Oxycodone Hcl Immed Release 5 Mg Tablet PO 07/28/25 12:30 5 mg ONCE ONE Administration Medical Decision Making Differential Diagnosis Differential Diagnoses: The differential diagnosis associated with the presentation includes (Lumbar spine fracture, lumbar area contusion, myofascial pain.) Admission/Observation Consideration of admission/observation: Escalation of care including admission/observation considered Lab Data MDM Lab Attestation statement: I reviewed the patient's lab results. Independent Interpretation I performed an independent interpretation of an: Plain X-Ray (L spine, sacrum and coccyx x-ray:L1 superior endplate compression fracture with 30% loss of height is new since November 2023. ) Radiology Impression Discussion of test interpretation with radiology: I have reviewed the radiologist's reading. Discharge Plan Discharge Clinical Impression: Compression fracture of L1 vertebra Patient Disposition: Home, Self-Care Instructions: Vertebral Compression Fracture (ED) Prescriptions: New lidocaine 4 % adhesive patch,medicated 1 patch topical BID PRN (Reason: pain) Qty: 10 0RF No Action citalopram 40 mg tablet 40 mg PO DAILY Qty: 90 1RF metoprolol tartrate 25 mg tablet 25 mg PO BID 90 Days Qty: 180 3RF levothyroxine 125 mcg tablet 125 mcg PO DAILY Qty: 90 1RF lisinopril-hydrochlorothiazide 20-25 mg tablet 1 tab PO DAILY Qty: 90 1RF atorvastatin 10 mg tablet 10 mg PO DAILY Qty: 90 1RF eszopiclone 3 mg tablet 3 mg PO BEDTIME PRN (Reason: insomnia) Qty: 30 0RF multivitamin Tablet 1 tab PO DAILY omeprazole 20 mg capsule,delayed release(DR/EC) 20 mg PO DAILY docusate sodium 100 mg capsule 100 mg PO DAILY albuterol sulfate 2.5 mg /3 mL (0.083 %) solution for nebulization 2.5 mg inhalation Q4-6H PRN (Reason: shortness of breath or wheezing) Qty: 75 1RF L0-vnpjorl-kasf-B6-dqsmkq-OO 529-9-05-5-1.5 mg tablet PO cholecalciferol (vitamin D3) 25 mcg (1,000 unit) capsule 25 mcg PO DAILY aspirin 81 mg tablet,delayed release (DR/EC) 81 mg PO DAILY tramadol 50 mg tablet 100 mg PO TID 30 Days Qty: 180 5RF albuterol sulfate 90 mcg/actuation HFA aerosol inhaler 2 inh inhalation Q6H PRN (Reason: shortness of breath or wheezing) Qty: 8.5 2RF magnesium oxide 400 mg magnesium tablet 400 mg PO DAILY MDD 400mg 90 Days Qty: 90 3RF Referrals: Loretta Sanchez MD [Primary Care Provider, Internal Medicine] Print Language: Slovenian
--- OUTSIDE RECORDS SUMMARY | 2025-07-28 12:56 | XMS_ITS | Patient Health Record ---
Author Organization [facility] Address [address] [place] [address] Care Team Providers Care Surgery Tech Name Role Phone Laura VILLANUEVA, Loretta Primary Care Provider Otf Merida [phone] Allergies Allergen (clinical drug ingredient) Drug/Non Drug Allergy documented on EMR Reaction Allergy Type Onset Date Status amoxicillin / clavulanate Amoxicillin-Pot Clavulanate ER Unknown Drug Allergy Active Reason For Referral No Information Medications Medication SIG (Take, Route, Frequency, Duration) Notes Start Date End Date Status Lisinopril 20 MG 1 tablet Orally Once a day; Duration: 30 day(s) Active Melatonin 5 MG 1 tablet at bedtime as needed with food Orally Once a day; Duration: 30 day(s) Active Citalopram Hydrobromide 20 MG 1 tablet O rally Once a day; Duration: 30 day(s) Active Vitamin D3 2000 UNIT 1 capsule Orally On a day; Duration: 30 day(s) Active Vitamin C 500 MG 1 tablet Orally Once a day Active hydroCHLOROthiazide 25 MG 1 tablet in morning Orally Once a day; Duration: 30 day(s) Active Aspir-Low Active Spiriva HandiHaler 18 MCG 1 capsule Inha lation Once a day Active ProAir HFA 108 (90 Base) MCG/ACT 2 puffs as needed Inhalation every 6 hrs Active Levothyroxine Sodium 137 MCG 1 tablet on an empty stomach in the morning Orally Once a day; Duration: 30 day(s) Active LORazepam 0.5 MG 1 tablet as needed Orally every 6 hrs Active Atorvastatin Calcium 10 MG 1 tablet Oral ly Once a day; Duration: 30 day(s) Active Glucosamine Chond Double Str [...] Problem Status W/U Status Risk Notes Problem Screening for malignant neoplasm of colon (103292011) Encounter for screening for malignant neoplasm of colon (Z12.11) Active confirmed Problem Preprocedural examination (395330303916836) Preprocedural examination (Z01.818) Active confirmed Problem Long-term current use of antiplatelet drug (986585843122414) Long-term use of aspirin therapy (Z79.82) Active confirmed Problem Constipation (93340368) Constipation, unspecified constipation type (K59.00) Active confirmed Plan Of Treatment Future Test Test Name Order Date COLONOSCOPY 09/24/2018 Insurance Providers Payer Name Payer Address Payer Phone Subscriber Number Group Number Insured Name Patient Relationship to Insured Coverage Start Date Coverage End Date [facility] (REFERRAL NEEDED) [address] [place] [address] [id number] ANI TOMPKINS Self - patient is the insured Medicare of [facility] [address] [place] [address] [id number] ANI TOMPKINS Self - patient is the insured Medical (General) History Medical History History ICD Code [place] at age 51-- mild --[address] d--no preoblems since then Hypertension COPD Describes a negative colonos copy > [address] Doherty in [place] Denies DM,CVA,renal disease Depresssion/Anxiety Surgical History Surgery Date(Month/Year) [facility] 1976
[2025-07-28] MEDS: oxyCODONE HCl Immed Release 5 MG TABLET PO (13:06)
[2025-07-28 14:44] VITALS: BP 137/60; PULSE 56; RESP 14; O2SAT 95
[2025-07-28 15:57] VITALS: BP 137/60; PULSE 56; RESP 14; TEMP 36.6; O2SAT 95
== END 2025-07-28 15:58 | disposition home or self-care (01) ==
PROVIDERS: Emergency Provider Emergency Medicine; PCP Internal Medicine
DX: M48.56XA Collapsed vertebra, not elsewhere classified, lumbar region, initial encounter for fracture (principal); Z91.81 History of falling; E78.5 Hyperlipidemia, unspecified; E11.9 Type 2 diabetes mellitus without complications; J44.9 Chronic obstructive pulmonary disease, unspecified; Z87.891 Personal history of nicotine dependence; Z79.899 Other long term (current) drug therapy
CPT/HCPCS: 72100; 72220; 99283; 99284

== ENCOUNTER → 2025-07-28 12:29 | Outpatient (BNV) | payer OTHER, SELFPAY | PROVIDERS: Emergency Provider Emergency Medicine; PCP Internal Medicine; Visit Provider Radiology Diagnostic Radiology | DX: S32.010A Wedge compression fracture of first lumbar vertebra, initial encounter for closed fracture (principal); Z04.3 Encounter for examination and observation following other accident | CPT/HCPCS: 72100; 72220 ==

== ENCOUNTER 2025-09-14 13:40 | Outpatient (REF) | payer OTHER, SELFPAY ==
--- NOTE | ~2025-09-14 | MM_ITS ---
EXAMINATION: DXA BONE DENSITY AXIAL HISTORY: S32.000A - Wedge compression fracture of unspecified lumbar vertebra... TECHNIQUE: [employer] Dual energy absorptiometry (DEXA) of the lumbar spine, total left hip, and femoral neck was performed. COMPARISON: Comparison is made with the prior examination dated 10/11/2017. FINDINGS: The bone mineral density of the lumbar spine is 1.263 g/cm2, corresponding to a T-score of 0.5, and a Z-score of 2.0. This is indicative of normal bone mineral density. This represents a BMD change of -2.9% compared to the prior exam. This is not statistically significant. The bone mineral density of the left total hip is 0.856 g/cm2, corresponding to a T-score of -1.2, and a Z-score of 0.5. This is indicative of osteopenia. This represents a BMD change of -17.8% compared to the prior exam. This is not statistically significant. The bone mineral density of the left femoral neck is 0.897 g/cm2, corresponding to a T-score of -1.0, and a Z-score of 0.9. This is indicative of normal bone mineral density. This represents a BMD change of -9.3% compared to the prior exam. FRACTURE RISK: The FRAX index suggests a ten year probability of major osteoporotic fracture of 11.3%, and of hip fracture 2.1%. MM/XR DEXA axial skeleton IMPRESSION: Based on bone mineral density, and according to World Health Organization (WHO) criteria, the diagnosis is consistent with osteopenia. Statistically, 68% of repeat scans fall within 1 SD (+/- 0.010 g/cm2 for AP spine L1-L4) and 1 SD (+/- 0.012 g/cm2 for femur total) FRAX is a trademark of the [employer], a World Health Organization (WHO) Collaborating Center. Electronically signed by: Otf Carrillo MD 09/14/2025 02:30 PM [facility]
--- OUTSIDE RECORDS SUMMARY | 2025-09-14 15:49 | XMS_ITS | Patient Health Record ---
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 Name Role Phone Loretta Sanchez MD Primary Care Provider Otf Merida [phone] Allergies Allergen (clinical drug ingredient) Drug/Non Drug Allergy documented on EMR Reaction Allergy Type Onset Date Status amoxicillin / clavulanate Amoxicillin-Pot Clavulanate ER Unknown Drug Allergy Active Reason For Referral No Information Medications Medication SIG (Take, Route, Frequency, Duration) Notes Start Date End Date Status Lisinopril 20 MG Tablet 1 tablet Orally Once a day; Duration: 30 day(s) Active Melatonin 5 MG Tablet 1 tablet at bedtim e as needed with food Orally Once a day; Duration: 30 day(s) Active Citalopram Hydrobromide 20 M G Tablet 1 tablet Orally Once a day; Duration: 30 day(s) Active Vitamin D3 2000 UNIT Capsule 1 capsule O rally Once a day; Duration: 30 day(s) Active Vitamin C 500 MG Tablet Chewable 1 tablet Orally Once a day Active hydroCHLOROthiazide 25 MG Tablet 1 tablet in the morning Orally Once a day; Duration: 30 day(s) Active Aspir-Low Active Spiriva HandiHaler 18 MCG Capsule 1 capsule Inhalation Once a day Active ProAir HFA 108 (90 Base) MCG/ACT Aerosol Solution 2 puffs as needed Inhalation every 6 hrs Active Levothyroxine Sodium 137 MCG Tablet 1 tablet on an empty stomach in the morning Orally Once a day; Duration: 30 day(s) Active LORazepam 0.5 MG Tablet 1 tablet as need ed Orally every 6 hrs Active Atorvastatin Calcium 10 MG Tablet 1 tablet Orally Once a day; Duration: 30 day(s) Active Glucosamine Chond Double Str Active Fish Oil 1200 mg capsule 1 capsule Orall y Once a day Active traMADol HCl 50 MG Tablet 1 tablet as ne eded Orally every 6 hrs Active Calcium Citrate + D3 Active Immunizations Vaccine Route Administration Date Status Comme nts Influenza Unknown 06/17/2018 Administered Social History Tobacco Use: Social History Observation Description Date Details (start date - stop date) Current Smoker NA - NA Social History Drugs/Alcohol: Social Info Question Answer Notes Alcohol Screen Did you have a drink containing alcohol in the past year? Yes How often did you have a drink containing alcohol in the past year? 2 to 3 times a week (3 points) How many drinks did you have on a typical day when you were drinking in the past year? 5 or 6 drinks (2 points) Points 5 Interpretation Positive Tobacco Use: Social Info Question Answer Notes Tobacco Use/Smoking Patient is a current smoker How often do you smoke cigarettes? every day How many cigarettes a day do you smoke? 11-20 Additional Details Category Social Info Options Details Miscellaneous: Marital status: Occupation: retired Section Notes: Smoker 1/2 ppd; occ. alcohol Problems Problem Type SNOMED Code ICD Code Onset Dates Problem Status W/U Status Risk Notes Problem Screening for malignant neoplasm of colon (006519058) Encounter for screening for malignant neoplasm of colon (Z12.11) Active confirmed Problem Preprocedural examination (796620959371205) Preprocedural examination (Z01.818) Active confirmed Problem Long-term current use of antiplatelet drug (217554859600467) Long-term use of aspirin therapy (Z79.82) Active confirmed Problem Constipation (53728115) Constipation, unspecified constipation type (K59.00) Active confirmed Plan Of Treatment Future Test Test Name Order Date COLONOSCOPY 09/24/2018 Insurance Providers Payer Name Payer Address Payer Phone Subscriber Number Group Number Insured Name Patient Relationship to Insured Coverage Start Date Coverage End Date [facility] (REFERRAL NEEDED) [address] [place] [phone] [id number] ANI TOMPKINS Self - patient is the insured [place] of [place] [employer] [address] [place] [phone] [id number] ANI TOMPKINS Self - patient is the insured Medical (General) History Medical History History ICD Code TN at age 51-- mild --[address] d--no preoblems since then Hypertension COPD Describes a negative colonos copy > [address] Doherty in [place] Denies DM,CVA,renal disease Depresssion/Anxiety Surgical History Surgery Date(Month/Year) [facility] 1975
== END 2025-09-14 13:41 ==
LOC: HO.MAMMO 13:40
PROVIDERS: PCP Internal Medicine; Visit Provider Internal Medicine
DX: S32.000A Wedge compression fracture of unspecified lumbar vertebra, initial encounter for closed fracture (principal); Z78.0 Asymptomatic menopausal state
CPT/HCPCS: 77080

== ENCOUNTER → 2025-09-14 14:00 | Outpatient (BNV) | payer OTHER, SELFPAY | PROVIDERS: PCP Internal Medicine; Visit Provider Radiology Diagnostic Radiology | DX: E28.39 Other primary ovarian failure (principal) | CPT/HCPCS: 77080 ==